=== PATIENT | male | born 1995 | race Caucasian/White ===

== ENCOUNTER 2017-12-26 19:41 | Emergency (ER) | payer OTHER, SELFPAY ==
[2017-12-26 19:52] VITALS: BP 126/85; PULSE 87; RESP 20; TEMP 36.6; O2SAT 99; BMI 35.4
--- NOTE | 2017-12-26 20:02 | HMH.EDUTC ---
[facility] [place] Disposition Clinical Impression: Right otitis media Qualifiers: Otitis media type: suppurative Chronicity: acute Recurrence: not specified as recurrent Spontaneous tympanic membrane rupture: without spontaneous rupture Qualified Code(s): H66.001 - Acute suppurative otitis media without spontaneous rupture of ear drum, right ear Disposition: Home, Self-Care Condition on Discharge: Good Instructions: DI for Otitis Media (Middle Ear Infection)-Child Prescriptions: cephALEXin [Keflex 500mg Cap] 500 mg PO Q6H 10 Days #40 cap Referrals: Maine Underwood APRN [Primary Care Provider] - Time of Disposition: 20:05 Medical Decision Making - Bennie Inquiry Pt receiving controlled substance: No Vital Signs: 12/26/17 19:52 Temperature 97.8 F Temperature Source Temporal Artery Scan Pulse Rate [Brachial] 87 Respiratory Rate 20 Blood Pressure [Right Arm] 126/85 Blood Pressure Mean [Right Arm] 98 Blood Pressure Position [Right Arm] Sitting 02 Sat by Pulse Oximetry 99 - Lab Data Lab results reviewed: Yes: I reviewed the patient's lab results. [facility] HPI - General Stated complaint: sore throat Time Seen by Provider: 12/26/17 19:50 Mode of Arrival: Ambulatory Source of Information: Patient Limitations: No Limitations Description of Symptoms (Recalled from Triage Doc. by RN): SORE THROAT FOR 3-4 DAYS THAT'S WORSE WHEN HE WAKES UP HEENT Symptoms (Recalled from RN notes): Yes Resp Symptoms (Recalled from RN notes): No Skin Symptoms (Recalled from RN notes): No MS Symptoms (Recalled from RN notes): No Functional Status (Recalled from RN notes): NA - History of Present Illness Provider Complaint: Sore throat X 3-4 days. Frequent strep throat. Right ear pain. Not sure about fever. No cough. No vomiting or diarrhea. Onset (ago): day(s) (4) Relieving factors: none Exacerbating factors: none Associated symptoms: malaise - Related Data Previous Rx's Medication Instructions Recorded cephALEXin [Keflex 500mg Cap] 500 mg PO Q6H 10 Days #40 cap 12/26/17 Allergies Allergy/AdvReac Type Severity Reaction Status Date / Time Penicillins [PENICILLINS] Allergy Mild Unverified 09/10/17 14:58 - Worker's Comp Is this a Worker's Comp case?: No [place] History I have reviewed the patient's past medical history: Yes - Social History Smoking Status: Current every day smoker Alcohol Intake: never - Psychiatric History Expresses thoughts of harming self/others: None Suicide Plan Description: No Plan ROS Obtained: Yes All systems reviewed & no additional complaints - ENT Ears, Nose, Mouth, and Throat: Reports otalgia, Reports sore throat Physical Exam - General General appearance: alert, in no apparent distress - Head Head exam: atraumatic, normocephalic, normal inspection - Eye Eye exam: Present: normal appearance, PERRL, EOMI - ENT ENT exam: Present: normal exam, normal oropharynx, mucous membranes moist, normal external ear exam - Expanded ENT Exam TM/Canal exam: Right TM: erythema, bulging Throat exam: Present: tonsillar erythema, tonsillar exudate - Neck Neck exam: Present: normal inspection, full ROM, trachea midline. Absent: meningismus, lymphadenopathy - Chest Chest inspection: Present: normal inspection, symmetric chest wall rise. Absent: tenderness - Respiratory Respiratory exam: Present: normal lung sounds bilaterally. Absent: respiratory distress - Cardiovascular Cardiovascular exam: Present: regular rate, normal rhythm. Absent: JVD - Abdominal Exam Abdominal exam: Present: soft, normal bowel sounds. Absent: distention, tenderness, guarding - Extremities Exam Extremities exam: Present: normal inspection, full ROM, normal capillary refill. Absent: calf tenderness - Back Exam Back exam: Present: normal inspection. Absent: tenderness - Neurological Exam Neurological exam: Present: alert, oriented X3 - Psychiatric Psychiatric exam: Present: normal affect, norm
--- NOTE | 2017-12-26 20:05 | ED_ITS ---
[facility] [place] Clinical Impression: Right otitis media Qualifiers: Otitis media type: suppurative Chronicity: acute Recurrence: not specified as recurrent Spontaneous tympanic membrane rupture: without spontaneous rupture Qualified Code(s): H66.001 - Acute suppurative otitis media without spontaneous rupture of ear drum, right ear Disposition: Home, Self-Care Condition on Discharge: Good Instructions: DI for Otitis Media (Middle Ear Infection)-Child Prescriptions: cephALEXin [Keflex 500mg Cap] 500 mg PO Q6H 10 Days #40 cap Referrals: Maine Underwood APRN [Primary Care Provider] - Time of Disposition: 20:05 Medical Decision Making - Bennie Inquiry Pt receiving controlled substance: No Vital Signs: 12/26/17 19:52 Temperature 97.8 F Temperature Source Temporal Artery Scan Pulse Rate [Brachial] 87 Respiratory Rate 20 Blood Pressure [Right Arm] 126/85 Blood Pressure Mean [Right Arm] 98 Blood Pressure Position [Right Arm] Sitting 02 Sat by Pulse Oximetry 99 - Lab Data Lab results reviewed: Yes: I reviewed the patient's lab results. [facility] [place] HPI - General Stated complaint: sore throat Time Seen by Provider: 12/26/17 19:50 Mode of Arrival: Ambulatory Source of Information: Patient Limitations: No Limitations Description of Symptoms (Recalled from Triage Doc. by RN): SORE THROAT FOR 3-4 DAYS THAT'S WORSE WHEN HE WAKES UP HEENT Symptoms (Recalled from RN notes): Yes Resp Symptoms (Recalled from RN notes): No Skin Symptoms (Recalled from RN notes): No MS Symptoms (Recalled from RN notes): No Functional Status (Recalled from RN notes): NA - History of Present Illness Provider Complaint: Sore throat X 3-4 days. Frequent strep throat. Right ear pain. Not sure about fever. No cough. No vomiting or diarrhea. Onset (ago): day(s) (4) Relieving factors: none Exacerbating factors: none Associated symptoms: malaise - Related Data Previous Rx's Medication Instructions Recorded cephALEXin [Keflex 500mg Cap] 500 mg PO Q6H 10 Days #40 cap 12/26/17 Allergies Allergy/AdvReac Type Severity Reaction Status Date / Time Penicillins [PENICILLINS] Allergy Mild Unverified 09/10/17 14:58 - Worker's Comp Is this a Worker's Comp case?: No [facility] History I have reviewed the patient's past medical history: Yes - Social History Smoking Status: Current every day smoker Alcohol Intake: never - Psychiatric History Expresses thoughts of harming self/others: None Suicide Plan Description: No Plan ROS Obtained: Yes All systems reviewed & no additional complaints - ENT Ears, Nose, Mouth, and Throat: Reports otalgia, Reports sore throat Physical Exam - General General appearance: alert, in no apparent distress - Head Head exam: atraumatic, normocephalic, normal inspection - Eye Eye exam: Present: normal appearance, PERRL, EOMI - ENT ENT exam: Present: normal exam, normal oropharynx, mucous membranes moist, normal external ear exam - Expanded ENT Exam TM/Canal exam: Right TM: erythema, bulging Throat exam: Present: tonsillar erythema, tonsillar exudate - Neck Neck exam: Present: normal inspection, full ROM, trachea midline. Absent: meningismus, lymphadenopathy - Chest Chest inspection: Present: normal inspection, symmetric chest wall rise. Absent : tenderness - Respiratory
[2017-12-26 20:19] VITALS: BP 126/85; PULSE 87; RESP 20; TEMP 36.6; O2SAT 99
[2017-12-26 21:56] LABS: UTC Strep Screen (Rapid) Negative (Negative)
== END 2017-12-26 20:20 | disposition home or self-care (01) ==
LOC: UTC 20:18
PROVIDERS: Emergency Provider Physician Assistant; Family Provider Physician Assistant; PCP Nurse Practitioner Family
DX: H66.001 Acute suppurative otitis media without spontaneous rupture of ear drum, right ear (principal); Z88.0 Allergy status to penicillin
CPT/HCPCS: 87880; 99201

== ENCOUNTER → 2018-03-11 12:08 | Outpatient (CLI) | payer OTHER, SELFPAY ==
--- NOTE | 2018-03-11 12:11 | XR_ITS ---
XR KUB HISTORY: ITS.REASON: pain ORDERING PHYSICIAN: Brenda Aaron PATIENT AGE: 22 years COMPARISON: None FINDINGS: The bowel gas pattern is unremarkable. No obvious obstruction.. No abnormal calcifications are evident. No obvious renal or ureteral calculi.. No acute bony anomalies evident. Minimal lumbar curvature convex left IMPRESSION: Negative KUB, no acute finding
== END ==
PROVIDERS: PCP Nurse Practitioner Family; Visit Provider Nurse Practitioner Family
DX: R10.9 Unspecified abdominal pain (principal); R30.9 Painful micturition, unspecified
CPT/HCPCS: 74018

== ENCOUNTER → 2018-09-17 15:05 | Outpatient (CLI) | payer OTHER, SELFPAY ==
[2018-09-17 15:36] LABS: Basophils # 0.1 K/mm3 (0-0.2); Basophils % 0.8 % (0.1-2.0); Eosinophils # 0.2 K/mm3 (0.0-0.4); Eosinophils % 2.4 % (0.1-12.0); Hematocrit 46.9 % (42.0-52.0); Hemoglobin 16.3 g/dL (14.1-18.0); Lymphocytes # 1.8 K/mm3 (0.7-4.5); Lymphocytes % 25.3 % (10-50); Mean Corpuscular HGB Conc 34.7 g/dL (31.8-35.4); Mean Corpuscular Hemoglobin 28.3 pg (27.0-31.2); Mean Corpuscular Volume 81.4 fl (80-94); Mean Platelet Volume 7.2 fl (7.4-10.4); Monocytes # 0.4 K/mm3 (0.1-1.0); Monocytes % 5.1 % (1.7-9.3); Neutrophils # 4.8 K/mm3 (1.8-7.8); Neutrophils % 66.3 % (37.0-80.0); Platelet Count 221 K/mm3 (142-424); Red Blood Count 5.76 M/mm3 (4.60-6.20); Red Cell Distribution Width 13.2 % (11.5-17.5); White Blood Count 7.2 K/mm3 (4.8-10.8)
[2018-09-17 15:58] LABS: Alanine Aminotransferase 54 U/L (12-78); Albumin Level 3.9 gm/dL (3.4-5.0); Albumin/Globulin Ratio 0.9 (1.1-1.8); Alkaline Phosphatase 88 U/L (46-116); Anion Gap 14.3 mEq/L (5-15); Aspartate Amino Transferase 30 U/L (15-37); Bilirubin,Total 0.6 mg/dL (0.2-1.0); Blood Urea Nitrogen 13 mg/dL (7-18); Calcium 9.1 mg/dL (8.5-10.1); Carbon Dioxide 28 mmol/L (21.0-32.0); Chloride 102 mmol/L (98-107); Creatinine,Serum 0.92 mg/dL (0.70-1.30); Estimated Glomerular Filt Rate 103 ml/min (>60); GFR (African American) 124 ML/MIN (>60); Globulin 4.3 gm/dl (1.3-3.2); Glucose 96 mg/dL (74-106); Potassium 4.3 mmoL/L (3.5-5.1); Sodium 140 mmol/L (136-145); Total Protein,Serum 8.2 gm/dL (6.4-8.2)
[2018-09-19 15:07] LABS: Peripheral Smear Review Scanned Result
[2018-09-20 10:54] LABS: EBV Ab VCA, IgM <36.0 U/mL (0.0-35.9)
== END ==
PROVIDERS: Visit Provider Physician Assistant
DX: R16.2 Hepatomegaly with splenomegaly, not elsewhere classified (principal)
CPT/HCPCS: 36415; 80053; 85025; 86664; 86665

== ENCOUNTER → 2019-05-28 17:06 | Outpatient (CLI) | payer OTHER, SELFPAY ==
[2019-05-28 17:40] LABS: Basophils % 0.4 % (0.1-2.0); Eosinophils # 0.1 K/mm3 (0.0-0.4); Eosinophils % 1.5 % (0.1-12.0); Hematocrit 44.3 % (42.0-52.0); Hemoglobin 15.4 g/dL (14.1-18.0); Lymphocytes % 27.3 % (10-50); Mean Corpuscular HGB Conc 34.7 g/dL (31.8-35.4); Mean Corpuscular Hemoglobin 28.6 pg (27.0-31.2); Mean Corpuscular Volume 82.5 fl (80-94); Mean Platelet Volume 7.7 fl (7.4-10.4); Monocytes # 0.5 K/mm3 (0.1-1.0); Monocytes % 6.7 % (1.7-9.3); Neutrophils # 4.6 K/mm3 (1.8-7.8); Neutrophils % 64.2 % (37.0-80.0); Platelet Count 226 K/mm3 (142-424); Red Blood Count 5.37 M/mm3 (4.60-6.20); Red Cell Distribution Width 13.2 % (11.5-17.5); White Blood Count 7.2 K/mm3 (4.8-10.8)
[2019-05-28 18:31] LABS: Alanine Aminotransferase 80 U/L (12-78); Albumin Level 3.9 gm/dL (3.4-5.0); Alkaline Phosphatase 83 U/L (46-116); Anion Gap 15.3 mEq/L (5-15); Aspartate Amino Transferase 45 U/L (15-37); Bilirubin,Total 0.3 mg/dL (0.2-1.0); Blood Urea Nitrogen 10 mg/dL (7-18); Calcium 8.9 mg/dL (8.5-10.1); Carbon Dioxide 24 mmol/L (21.0-32.0); Chloride 106 mmol/L (98-107); Creatinine,Serum 0.92 mg/dL (0.70-1.30); Estimated Glomerular Filt Rate 102 ml/min (>60); GFR (African American) 123 ML/MIN (>60); Glucose 97 mg/dL (74-106); Potassium 4.3 mmoL/L (3.5-5.1); Sodium 141 mmol/L (136-145); Total Protein,Serum 7.9 gm/dL (6.4-8.2)
[2019-05-30 08:21] LABS: Hep A Ab, IgM Negative (Negative); Hepatitis B Core Antibody IgM Negative (Negative); Hepatitis B Surface Antigen Negative (Negative)
[2019-05-30 17:12] LABS: Peripheral Smear Review Scanned Result
[2019-05-30 18:04] LABS: Hepatitis C Antibody <0.1 s/co ratio (0.0-0.9)
[2019-05-30 18:05] LABS: EBV Ab VCA, IgM <36.0 U/mL (0.0-35.9)
== END ==
PROVIDERS: Visit Provider Physician Assistant
DX: R10.9 Unspecified abdominal pain (principal); R07.81 Pleurodynia; R16.2 Hepatomegaly with splenomegaly, not elsewhere classified; R31.9 Hematuria, unspecified
CPT/HCPCS: 80053; 80074; 85025; 86664; 86665

== ENCOUNTER 2020-03-26 23:34 | Emergency (ER) | payer OTHER, SELFPAY ==
[2020-03-26 23:42] VITALS: BP 141/108; PULSE 118; RESP 16; TEMP 36.8; O2SAT 98; BMI 21.5
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
[2020-03-27 00:15] VITALS: BP 132/90; PULSE 108; RESP 18; O2SAT 99
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
[2020-03-27 00:52] VITALS: BP 116/89; PULSE 102; RESP 15; TEMP 36.8; O2SAT 98
== END 2020-03-27 01:04 | disposition home or self-care (01) ==
PROVIDERS: Emergency Provider Emergency Medicine; PCP Physician Assistant
DX: T23.222A Burn of second degree of single left finger (nail) except thumb, initial encounter (principal); W39.XXXA Discharge of firework, initial encounter; F17.210 Nicotine dependence, cigarettes, uncomplicated
CPT/HCPCS: 96372; 99282

== ENCOUNTER 2020-06-20 15:49 | Emergency (ER) | payer OTHER, SELFPAY ==
[2020-06-20 15:50] VITALS: BP 148/91; PULSE 98; RESP 18; TEMP 37.2; O2SAT 98; BMI 34.7
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
--- NOTE | 2020-06-20 16:39 | PC.NURSE ---
20/20 left eye 20/20 right eye
[2020-06-20 16:46] VITALS: BP 148/91; PULSE 98; RESP 18; TEMP 37.2; O2SAT 98
== END 2020-06-20 16:47 | disposition home or self-care (01) ==
PROVIDERS: Emergency Provider Emergency Medicine; PCP Physician Assistant
DX: S05.91XA Unspecified injury of right eye and orbit, initial encounter (principal); F17.210 Nicotine dependence, cigarettes, uncomplicated
CPT/HCPCS: 99281

== ENCOUNTER 2020-07-16 21:23 | Emergency (ER) | payer OTHER, SELFPAY ==
[2020-07-16 21:37] VITALS: BP 144/96; PULSE 76; RESP 16; TEMP 36.7; O2SAT 99; BMI 34.7
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
[2020-07-16 22:39] VITALS: BP 125/84; PULSE 87; RESP 18; O2SAT 98
[2020-07-16 23:25] VITALS: BP 126/97; PULSE 73; RESP 17; TEMP 36.7; O2SAT 98
== END 2020-07-16 23:30 | disposition home or self-care (01) ==
PROVIDERS: Emergency Provider Emergency Medicine; PCP Physician Assistant
DX: S80.812A Abrasion, left lower leg, initial encounter (principal); S80.12XA Contusion of left lower leg, initial encounter; W22.09XA Striking against other stationary object, initial encounter; Y92.79 Other farm location as the place of occurrence of the external cause; F17.210 Nicotine dependence, cigarettes, uncomplicated
CPT/HCPCS: 73590; 99282

== ENCOUNTER 2020-10-07 22:44 | Emergency (ER) | payer OTHER, SELFPAY ==
[2020-10-07 22:45] VITALS: BP 145/90; PULSE 95; RESP 16; TEMP 36.9; O2SAT 99; BMI 35.3
--- NOTE | 2020-10-07 22:58 | HMH.EDGENADL ---
ED Disposition Clinical Impression: Colitis Disposition: Home, Self-Care Condition on Discharge: Good Instructions: DI for Acute Abdominal Pain Additional Instructions: Take prescribed medicine for gut spasm/pain. Do not operate heavy machinery or drink alcohol taking this medicine. Take Pepto-Bismol if experiencing any diarrhea and drink plenty of clear fluids and follow a bland diet over the next several days. Return if any high fever/chills, worsening abdominal pain, concern for dehydration secondary to volume depletion, or other new concerning symptoms. Prescriptions: Dicyclomine HCl [Bentyl 10mg capsule] 10 mg PO TID 4 Days #18 cap Transmission Status: Pending to [id number] Referrals: Shellie Richmond PA [Primary Care Provider] - - Critical Care Critical Care Time: No Attestation: On 10/07/20, the high probability of a clinically significant, sudden or life threatening deterioration of the following system(s) required my full and direct attention, intervention and personal management. The time I documented below is in addition to time spent performing reported procedures but includes the following listed in this critical care notation. Medical Decision Making - Medical Records Medical records reviewed: Yes: I reviewed the patient's medical records. - Bennie Inquiry Pt receiving controlled substance: No Vital Signs: 10/07/20 22:45 Temperature 98.4 F Temperature Source Oral Pulse Rate [Left Radial] 95 H Respiratory Rate 16 Blood Pressure [Right Arm] 145/90 H Blood Pressure Mean [Right Arm] 108 Blood Pressure Source [Right Arm] Automatic Cuff Blood Pressure Position [Right Arm] Supine 02 Sat by Pulse Oximetry 99 Oxygen Delivery Method Room Air - Lab Data Lab Results 10/07/20 23:00: Urine Color Yellow, Urine Appearance Clear, Urine pH 7.0, Ur Specific [place] 1.025, Urine Protein 1+, Urine Glucose (UA) Negative, Urine Ketones Negative, Urine Blood Trace-i, Urine Nitrate Negative, Urine Bilirubin Negative, Urine Urobilinogen 0.2, Ur Leukocyte Esterase Negative, Urine RBC 3-5, Urine WBC 3-5 10/07/20 23:13: WBC 11.7 H, RBC 5.85, Hgb 16.6, Hct 47.2, MCV 80.7, MCH 28.3, MCHC 35.1, RDW 13.7, Plt Count 233, MPV 7.5, Neut % (Auto) 66.1, Lymph % (Auto) 25.7, Coles % (Auto) 6.1, Eos % (Auto) 1.4, Baso % (Auto) 0.6, Neut # (Auto) 7.8, Lymph # (Auto) 3.0, Coles # (Auto) 0.7, Eos # (Auto) 0.2, Baso # (Auto) 0.1 10/07/20 23:13: Sodium 138, Potassium 3.9, Chloride 104, Carbon Dioxide 26, Anion Gap 11.9, BUN 15, Creatinine 0.80, Estimated Creat Clear 249, Estimated GFR 118, Est GFR ( Amer) 143, Glucose 109 H, Calcium 9.4, Total Bilirubin 0.6, AST 40, ALT 47, Alkaline Phosphatase 73, Total Protein 8.7 H, Albumin 4.6, Globulin 4.1 H, Albumin/Globulin Ratio 1.1, Amylase 60, Lipase 47 Result diagrams: 10/07/20 23:13 10/07/20 23:13 Orders (Tests/Meds): ED MEDICATIONS Generic Name Dose Route Start Last Admin Trade Name Freq PRN Reason Stop Dose Admin Lactated Ringer's 1,000 mls @ 999 mls/hr 10/07/20 23:15 Lactated Ringer's 1000 Ml Bag IV 10/08/20 00:15 .Q1H1M [place] Discontinued Medications Generic Name Dose Route Start Last Admin Trade Name Freq PRN Reason Stop Dose Admin Iopamidol 75 ml 10/07/20 23:38 10/07/20 23:39 Iopamidol-370 (76%);100ml Bottle IV 10/07/20 23:39 75 ml ONCE ONE Administration Sodium Chloride 10 ml 10/07/20 23:38 10/07/20 23:39 Sodium Chloride 0.9% 10ml Syr (Rad Only) IV 10/07/20 23:39 10 ml ONCE ONE Administration ORDERS Category Date Time Status CT abdomen pelvis w con Stat Cat Scan 10/07/20 23:03 Taken Medical Decision Narrative: Patient presents with left upper quadrant/left flank pain. Patient hemodynamically stable in no acute distress. At this time, differential diagnosis includes pyelonephritis versus kidney stone versus diverticulitis versus gastritis versus colitis versus muscular strain. Benign abdominal
--- NOTE | 2020-10-07 23:03 | CT_ITS ---
Procedure: CT ABDOMEN PELVIS W CON Referring Doctor: Piter Moreno Patient Age:25Y CLINICAL INDICATION: abd pain left-sided abdominal pain 4 days denies nausea vomiting or diarrhea. Appendix removed 4 years ago COMPARISON: CT ABDPELWW CT abdomen pelvis wo/w con from 08/29/2018 TECHNIQUE: 75 cc Isovue 370. IV contrast utilized but no oral contrast Helical axial images obtained with sagittal and coronal reformats. All CT scans at the facility use one or more dose reduction, viz: automated exposure control, ma/kV adjustment per patient size (including targeted exams where dose is matched to indication, i.e. head), or iterative reconstruction technique. FINDINGS: Lower thorax: No acute finding.-no active disease. Small 5 mm calcified granuloma towards left lung base. 2Heart normal size. ABDOMEN: Liver: Diffuse fatty changes of liver. Hepatic steatosis no masses or biliary dilatation. Gallbladder: Nondistended. No radio opaque stones. Common duct normal Pancreas: Unremarkable no masses or peripancreatic fluid collections. Spleen: Borderline/mild splenomegaly. Spleen does measure 15 cm length but upper normal volume overall. Spleen appearance and size unchanged since 2018 but minimal splenosis again noted medial to the spleen Adrenals: unremarkable --- tract --- Kidneys/ureters: Unremarkable but normal enhancement PELVIS. No free fluid or acute findings. Prostate normal size Urinary bladder: Small nondistended with upper normal wall thickness likely reflecting such. No obvious stones or masses. Appendix: Surgically removed. --GI tract----: Stomach bowel: Nondistended. No obvious mass or thickening. Perhaps slight generous throughout distal small bowel but no dilatation, WNL Large bowel: Minimal solid stool right colon with fairly empty left colon Few early diverticula at the sigmoid and left colon suggested but no active evident diverticulitis. The slight wall thickening appearance at the descending colon noted on preliminary V [facility] report I favor reflects merely lack of distension, although conceivably could could reflect some minor inflammatory changes. No liquid stool or other findings to support a current colitis Peritoneum: No abnormal fluid collections. No obvious inflammatory changes. No free air. . No significant hernias. Lymph nodes: No enlarged lymph nodes apparent. Vasculature: No evidence of abdominal aortic aneurysm. No retroperitoneal hemorrhage evident. Bones: No acute fracture no lesion. Borderline disc space narrowing posterior L5/S1 IMPRESSION: No discrete acute findings abdomen pelvis Mild wall thickening appearance at the descending colon I favor merely reflects lack of distension (doubt mild colitis). . Borderline-mild splenomegaly again noted. Spleen un unchanged since 2018 . Diverticulosis developing at sigmoid and left colon but no diverticulitis . The fatty changes liver . Dictated by: Zane Lopez MD 10/08/2020 11:23 Zane Lopez MD in [place] 10/08/2020 11:23
[2020-10-07 23:09] LABS: Microscopic, Urine URINE MICROSCOPIC (MICROSCOPIC)
[2020-10-07 23:10] LABS: Appearance,Urine CLEAR (Clear); Bilirubin,Urine Negative (Negative); Blood, Urine TRACE-I (Negative); Color,Urine YELLOW (Yellow); Glucose,Urine (UA) Negative (Negative); Ketones,Urine Negative (Negative); Leukocyte Esterase,Urine Negative (Negative); Nitrate,Urine Negative (Negative); Protein,Urine 1+ (Negative); Specific Gravity, Urine 1.025 (1.005-1.030); Urobilinogen,Urine 0.2 EU/dl (0.2)
[2020-10-07 23:20] LABS: Basophils # 0.1 K/mm3 (0-0.2); Basophils % 0.6 % (0.1-2.0); Eosinophils # 0.2 K/mm3 (0.0-0.4); Eosinophils % 1.4 % (0.1-12.0); Hematocrit 47.2 % (42.0-52.0); Hemoglobin 16.6 g/dL (14.1-18.0); Lymphocytes % 25.7 % (10-50); Mean Corpuscular HGB Conc 35.1 g/dL (31.8-35.4); Mean Corpuscular Hemoglobin 28.3 pg (27.0-31.2); Mean Corpuscular Volume 80.7 fl (80-94); Mean Platelet Volume 7.5 fl (7.4-10.4); Monocytes # 0.7 K/mm3 (0.1-1.0); Monocytes % 6.1 % (1.7-9.3); Neutrophils # 7.8 K/mm3 (1.8-7.8); Neutrophils % 66.1 % (37.0-80.0); Platelet Count 233 K/mm3 (142-424); Red Blood Count 5.85 M/mm3 (4.60-6.20); Red Cell Distribution Width 13.7 % (11.5-17.5); White Blood Count 11.7 K/mm3 (4.8-10.8)
[2020-10-07 23:28] LABS: Alanine Aminotransferase 47 U/L (12-78); Albumin Level 4.6 g/dl (3.5-5.0); Albumin/Globulin Ratio 1.1 (1.1-1.8); Alkaline Phosphatase 73 U/L (38-126); Amylase 60 U/L (30-110); Anion Gap 11.9 mEq/L (5-15); Aspartate Amino Transferase 40 U/L (17-59); Bilirubin,Total 0.6 mg/dl (0.2-1.3); Blood Urea Nitrogen 15 mg/dl (9-20); Calcium 9.4 mg/dl (8.4-10.2); Carbon Dioxide 26 mmol/L (22.0-30.0); Chloride 104 mmol/L (98-107); Creatinine Clearance Estimated 249 mL/min (50-200); Estimated Glomerular Filt Rate 118 ml/min (>60); GFR (African American) 143 ML/MIN (>60); Globulin 4.1 g/dL (1.3-3.2); Glucose 109 mg/dl (74-100); Lipase 47 U/L (23-300); Potassium 3.9 mmoL/L (3.5-5.1); Sodium 138 mmol/L (136-145); Total Protein,Serum 8.7 g/dl (6.3-8.2)
[2020-10-08 00:15] VITALS: BP 135/84; PULSE 81; RESP 16; TEMP 36.6; O2SAT 97
== END 2020-10-08 00:17 | disposition home or self-care (01) ==
PROVIDERS: Emergency Provider Emergency Medicine; PCP Physician Assistant
DX: K52.9 Noninfective gastroenteritis and colitis, unspecified (principal); F17.210 Nicotine dependence, cigarettes, uncomplicated
CPT/HCPCS: 74177; 80053; 81001; 82150; 83690; 85025; 99283; Q9967

== ENCOUNTER → 2020-11-18 13:04 | Outpatient (CLI) | payer OTHER, SELFPAY ==
[2020-11-18 13:08] LABS: Microscopic, Urine URINE MICROSCOPIC (MICROSCOPIC)
[2020-11-18 13:24] LABS: Appearance,Urine CLEAR (Clear); Blood, Urine 1+ (Negative); Color,Urine YELLOW (Yellow); Glucose,Urine (UA) Negative (Negative); Ketones,Urine Negative (Negative); Leukocyte Esterase,Urine Negative (Negative); Nitrate,Urine Negative (Negative); Protein,Urine 3+ (Negative); Specific Gravity, Urine >= 1.030 (1.005-1.030)
[2020-11-18 13:28] LABS: Bilirubin,Urine 1+ (Negative)
[2020-11-18 13:29] LABS: Basophils % 0.5 % (0.1-2.0); Eosinophils # 0.1 K/mm3 (0.0-0.4); Eosinophils % 1.3 % (0.1-12.0); Hematocrit 43.3 % (42.0-52.0); Lymphocytes # 2.3 K/mm3 (0.7-4.5); Lymphocytes % 28.9 % (10-50); Mean Corpuscular HGB Conc 34.5 g/dL (31.8-35.4); Mean Platelet Volume 7.5 fl (7.4-10.4); Monocytes # 0.5 K/mm3 (0.1-1.0); Monocytes % 6.5 % (1.7-9.3); Neutrophils # 4.9 K/mm3 (1.8-7.8); Neutrophils % 62.7 % (37.0-80.0); Platelet Count 242 K/mm3 (142-424); Red Blood Count 5.35 M/mm3 (4.60-6.20); Red Cell Distribution Width 13.3 % (11.5-17.5); White Blood Count 7.9 K/mm3 (4.8-10.8)
[2020-11-18 14:11] LABS: Albumin Level 4.6 g/dl (3.5-5.0); Anion Gap 10.8 mEq/L (5-15); Blood Urea Nitrogen 16 mg/dl (9-20); Calcium 9.2 mg/dl (8.4-10.2); Carbon Dioxide 26 mmol/L (22.0-30.0); Chloride 107 mmol/L (98-107); Estimated Glomerular Filt Rate 103 ml/min (>60); GFR (African American) 124 ML/MIN (>60); Glucose 84 mg/dl (74-100); Phosphorous 3.9 mg/dl (2.5-4.5); Potassium 3.8 mmoL/L (3.5-5.1); Sodium 140 mmol/L (136-145)
[2020-11-18 14:24] LABS: Intact Parathyroid Hormone 50.8 pg/mL (7.5-53.5)
[2020-11-18 14:28] LABS: 25-OH Vitamin D, Total 24.4 ng/mL (30-100)
[2020-11-18 14:47] LABS: Creatinine,Urine Random 467 mg/dL (Not Estab.)
== END ==
PROVIDERS: Visit Provider Internal Medicine Nephrology
DX: R31.9 Hematuria, unspecified (principal); Z87.448 Personal history of other diseases of urinary system
CPT/HCPCS: 36415; 80069; 81001; 82306; 82570; 83970; 84155; 85025

== ENCOUNTER → 2020-11-21 10:48 | Outpatient (POV) | payer OTHER, SELFPAY ==
[2020-11-21 14:05] LABS: Erythrocyte Sedimentation Rate 8 mm/hr (0-15)
[2020-11-22 11:35] LABS: HIV Screen 4th Generation wRfx Non Reactive (Non Reactive)
[2020-11-22 12:21] LABS: Hep A Ab, IgM Negative (Negative); Hepatitis B Core Antibody IgM Negative (Negative); Hepatitis B Surface Antigen Negative (Negative)
[2020-11-22 13:06] LABS: Hepatitis C Antibody <0.1 s/co ratio (0.0-0.9)
[2020-11-22 17:40] LABS: Anti-DNA (DS) Ab Qn 1 IU/mL (0-9); Complement C3 150 mg/dL (82-167)
[2020-11-23 14:58] LABS: Antinuclear Antibodies, IFA Negative (.)
[2020-11-23 15:10] LABS: Myeloperoxidase Antibody <9.0 U/mL (0.0-9.0)
[2020-11-23 18:16] LABS: Antiproteinase 3 (PR-3) Abs <3.5 U/mL (0.0-3.5)
== END ==
PROVIDERS: Visit Provider Internal Medicine Nephrology
DX: R31.9 Hematuria, unspecified (principal)
CPT/HCPCS: 36415; 80074; 83520; 85651; 86038; 86161; 86225; 86703; G0432

== ENCOUNTER 2020-11-25 06:46 | Emergency (ER) | payer OTHER, SELFPAY ==
[2020-11-25 06:47] VITALS: BP 144/94; PULSE 80; RESP 16; TEMP 36.6; O2SAT 98; BMI 34.7
--- NOTE | 2020-11-25 07:05 | CT_ITS ---
PROCEDURE: CT ABDOMEN PELVIS W CON CLINICAL INDICATION: LLQ pain COMPARISON: CT CT ABDOMEN PELVIS W CON from 10/07/2020 TECHNIQUE: IV Contrast: 75ML Isovue 370 Oral Contrast None Axial images obtained with sagittal and coronal reformats. All CT scans at the facility use one or more dose reduction, viz: automated exposure control, ma/kV adjustment per patient size (including targeted exams where dose is matched to indication, i.e. head), or iterative reconstruction technique. FINDINGS: LOWER THORAX: No acute finding ABDOMEN & PELVIS: Fatty liver. The spleen, adrenal glands, pancreas, and kidneys have an unremarkable appearance. No radiopaque gallstones. Prior appendectomy. No intestinal obstruction or free air. There are some nondistended fluid-filled loops of small bowel with a few air-fluid levels which are nonspecific but could be seen with enteritis. Scattered small nodes are present in the mesenteries which are nonspecific. No acute bony findings. IMPRESSION: Possible mild enteritis otherwise negative Dictated by: Joe Garcia MD 11/25/2020 09:48 Joe Garcia MD in [place] 11/25/2020 09:48
--- NOTE | 2020-11-25 07:07 | HMH.EDGENADL ---
ED Disposition Clinical Impression: Abdominal pain Disposition: Still a Patient Condition on Discharge: Good Referrals: Shellie Richmond PA [Primary Care Provider] - - Critical Care Critical Care Time: No Attestation: On , the high probability of a clinically significant, sudden or life threatening deterioration of the following system(s) required my full and direct attention, intervention and personal management. The time I documented below is in addition to time spent performing reported procedures but includes the following listed in this critical care notation. Medical Decision Making - Medical Records Medical records reviewed: Yes: I reviewed the patient's medical records. - Bennie Inquiry Pt receiving controlled substance: No Vital Signs: 11/25/20 06:47 Temperature 97.8 F Temperature Source Oral Pulse Rate [Radial] 80 Respiratory Rate 16 Blood Pressure [Right Arm] 144/94 H Blood Pressure Mean [Right Arm] 110 Blood Pressure Position [Right Arm] Sitting 02 Sat by Pulse Oximetry 98 Oxygen Delivery Method Room Air Orders (Tests/Meds): ED MEDICATIONS Generic Name Dose Route Start Last Admin Trade Name Freq PRN Reason Stop Dose Admin Sodium Chloride 1,000 mls @ 999 mls/hr 11/25/20 07:15 11/25/20 07:10 Sod Chlor 0.9% 1000ml Bag IV 11/25/20 08:15 999 mls/hr .Q1H1M VERNON Administration Discontinued Medications Generic Name Dose Route Start Last Admin Trade Name Freq PRN Reason Stop Dose Admin Ondansetron HCl 4 mg 11/25/20 07:05 11/25/20 07:12 Ondansetron 4mg Odt SL 11/25/20 07:06 Not Given ONCE ONE Ondansetron HCl 4 mg 11/25/20 07:10 11/25/20 07:11 Ondansetron 4mg/2ml Vial IV 11/25/20 07:11 4 mg ONCE ONE Administration ORDERS Category Date Time Status CT abdomen pelvis w con Stat Cat Scan 11/25/20 07:05 Ordered CMP [Comprehensive Metabolic Panel] Stat Lab 11/25/20 07:05 Ordered Complete Blood Count Auto Diff Stat Lab 11/25/20 07:05 Ordered Lipase Stat Lab 11/25/20 07:05 Ordered Urinalysis and Microscopic Stat Lab 11/25/20 07:03 Ordered Medical Decision Narrative: 25-year-old male with abdominal pain and back pain as above. He is in no acute distress nontoxic-appearing sitting comfortably in the room. He is mostly tender in the left lower quadrant. I think that perforation and ischemia obstruction or other emergent etiology is less likely, had recent colitis that is possibly recurring. CT scan obtained to evaluate. No concern for emergent back pathology including epidural abscess or cauda equina syndrome. We will give IV fluids check labs and sign outpatient to oncoming physician Dr. Collins follow-up and reevaluation final disposition General Adult HPI - General Chief complaint: PAIN Stated complaint: Pain in left side and spine Time Seen by Provider: 11/25/20 07:00 Mode of Arrival: Ambulatory Limitations: No Limitations Description of Symptoms (Recalled from ER Triage Doc. by RN): TO ED PER PVT CAR WITH C/O LT SIDE BACK PAIN WOKE HIM OUT OF SLEEP AND LLQ PAIN X SEVERAL WEEKS. +NAUSEA, DENIES FEVER, CHILLS, VOMITING. PT STATES SEEN BY NEPHROLOGY SEVERAL DAYS AGO. - History of Present Illness HPI narrative: 25-year-old male presents with left lower quadrant pain and lower and mid back pain for 1 day. He says he was woken up from his sleep with severe pain in the left lower quadrant. This is similar to the pain he had 2 months ago when he had a mild colitis. He denies radiation of the pain to the lower extremities urinary or bowel incontinence. No fever or chills. He does have nausea no vomiting. No diarrhea. Location: abdomen Severity: mild Quality: dull Consistency: intermittent - Related Data Previous Rx's Medication Instructions Recorded Dicyclomine HCl [Bentyl 10mg 10 mg PO TID 4 Days #18 cap 10/07/20 capsule] cephalexin 500 mg capsule 500 mg PO TID 10 Days #30 cap 10/11/20 hyoscyamine sulfate 0.375 mg 0
[2020-11-25 07:18] LABS: Microscopic, Urine URINE MICROSCOPIC (MICROSCOPIC)
[2020-11-25 07:22] LABS: Basophils # 0.1 K/mm3 (0-0.2); Basophils % 0.9 % (0.1-2.0); Eosinophils # 0.2 K/mm3 (0.0-0.4); Eosinophils % 2.7 % (0.1-12.0); Hematocrit 47.8 % (42.0-52.0); Hemoglobin 16.1 g/dL (14.1-18.0); Lymphocytes # 2.6 K/mm3 (0.7-4.5); Lymphocytes % 34.7 % (10-50); Mean Corpuscular HGB Conc 33.7 g/dL (31.8-35.4); Mean Corpuscular Hemoglobin 27.8 pg (27.0-31.2); Mean Corpuscular Volume 82.7 fl (80-94); Mean Platelet Volume 7.9 fl (7.4-10.4); Monocytes # 0.5 K/mm3 (0.1-1.0); Monocytes % 6.8 % (1.7-9.3); Neutrophils # 4.1 K/mm3 (1.8-7.8); Neutrophils % 54.8 % (37.0-80.0); Platelet Count 220 K/mm3 (142-424); Red Blood Count 5.79 M/mm3 (4.60-6.20); Red Cell Distribution Width 13.4 % (11.5-17.5); White Blood Count 7.5 K/mm3 (4.8-10.8)
[2020-11-25 07:23] LABS: Appearance,Urine CLEAR (Clear); Bilirubin,Urine Negative (Negative); Blood, Urine TRACE-L (Negative); Color,Urine YELLOW (Yellow); Glucose,Urine (UA) Negative (Negative); Ketones,Urine Negative (Negative); Leukocyte Esterase,Urine Negative (Negative); Nitrate,Urine Negative (Negative); PH,Urine 6.5 (5.0-8.5); Protein,Urine 1+ (Negative); Specific Gravity, Urine 1.025 (1.005-1.030); Urobilinogen,Urine 0.2 EU/dl (0.2)
[2020-11-25 07:26] LABS: Alanine Aminotransferase 67 U/L (12-78); Albumin Level 4.5 g/dl (3.5-5.0); Albumin/Globulin Ratio 1.1 (1.1-1.8); Alkaline Phosphatase 79 U/L (38-126); Aspartate Amino Transferase 48 U/L (17-59); Bilirubin,Total 0.4 mg/dl (0.2-1.3); Blood Urea Nitrogen 18 mg/dl (9-20); Calcium 9.5 mg/dl (8.4-10.2); Carbon Dioxide 24 mmol/L (22.0-30.0); Chloride 107 mmol/L (98-107); Creatinine Clearance Estimated 217 mL/min (50-200); Estimated Glomerular Filt Rate 103 ml/min (>60); GFR (African American) 124 ML/MIN (>60); Globulin 4.1 g/dL (1.3-3.2); Glucose 110 mg/dl (74-100); Lipase 53 U/L (23-300); Sodium 139 mmol/L (136-145); Total Protein,Serum 8.6 g/dl (6.3-8.2)
[2020-11-25 07:42] LABS: Squamous Epithelial Cell,Urine Occasional #/hpf (0-5)
[2020-11-25 08:11] VITALS: BP 138/70; PULSE 71; RESP 18; TEMP 36.6; O2SAT 99
== END 2020-11-25 08:11 | disposition home or self-care (01) ==
PROVIDERS: Emergency Provider Emergency Medicine; PCP Physician Assistant
DX: R10.32 Left lower quadrant pain (principal); F17.210 Nicotine dependence, cigarettes, uncomplicated
CPT/HCPCS: 36415; 74177; 80053; 81001; 83690; 85025; 96365; 96375; 99283; J2405

== ENCOUNTER 2021-04-16 13:56 | Emergency (ER) | payer OTHER, SELFPAY ==
[2021-04-16 15:27] VITALS: BP 125/88; PULSE 92; RESP 18; TEMP 36.9; O2SAT 98; BMI 36.6
--- NOTE | 2021-04-16 15:33 | HMH.EDUTC ---
[facility] [place] Disposition Clinical Impression: Need for Tdap vaccination Puncture wound of right knee without foreign body Qualifiers: Encounter type: initial encounter Qualified Code(s): S81.031A - Puncture wound without foreign body, right knee, initial encounter Disposition: Home, Self-Care Condition on Discharge: Good Instructions: DI for Puncture Wound Prescriptions: cephALEXin [cephALEXin 500mg capsule*] 500 mg PO Q6H 10 Days #40 cap Transmission Status[email or web address] Naproxen [Naproxen 500mg tab] 500 mg PO BID 10 Days #20 tab Transmission [facility]: [email or web address] Referrals: Shellie Richmond PA [Primary Care Provider] - Time of Disposition: 15:52 Medical Decision Making - Bennie Inquiry Pt receiving controlled substance: No Vital Signs: 04/16/21 15:27 Temperature 98.4 F Temperature Source Oral Pulse Rate [Right] 92 H Respiratory Rate 18 Blood Pressure [Right Arm] 125/88 Blood Pressure Mean [Right Arm] 100 02 Sat by Pulse Oximetry 98 Oxygen Delivery Method Room Air Orders (Tests/Meds): ED MEDICATIONS Discontinued Medications Generic Name Dose Route Start Last Admin Trade Name Freq PRN Reason Stop Dose Admin Tetanus/Reduced Diphtheria/Acell Pertussis 0.5 ml 04/16/21 15:49 Tet/Diphth/Pert-Adult 0.5ml Syringe IM 04/16/21 15:50 .ONCE ONE ORDERS Category Date Time Status XR knee RT 3V Stat Exams 04/16/21 15:36 Ordered - Radiology Data #1 Image(s): Knee Image Reviewed: Yes I reviewed the patient's radiology image Preliminary Findings: Normal/NAD [facility] [place] HPI - General Stated complaint: [id number] open wound right leg Time Seen by Provider: 04/16/21 15:33 - History of Present Illness Provider Complaint: Puncture wound to right knee yesterday afternoon. Getting out of truck when tool from truck poked into his right knee. Right knee is swollen and painful to walk on. No fever. Unsure of last tetanus. Onset (ago): day(s) (1) Location: right, lower extremity Quality: burning Relieving factors: none Exacerbating factors: none Associated symptoms: denies other symptoms Treatments prior to arrival: none - Related Data Previous Rx's Medication Instructions Recorded ahvirfhgjjhikpr-yxtjswxpekldaso-VK 5 ml PO Q6H PRN #180 ml 04/04/21 2 mg-30 mg-10 mg/5 mL oral syrup doxycycline hyclate 100 mg tablet 100 mg PO BID #20 tab 04/04/21 Naproxen [Naproxen 500mg tab] 500 mg PO BID 10 Days #20 tab 04/16/21 cephALEXin [cephALEXin 500mg 500 mg PO Q6H 10 Days #40 cap 04/16/21 capsule*] Allergies Allergy/AdvReac Type Severity Reaction Status Date / Time Penicillins [PENICILLINS] Allergy Mild Verified 04/04/21 08:42 [facility] History - Hepatitis A Screen Attestation statement:: This patient has been screened for Hepatitis A risk factors. 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 - Social History Smoking Status: Current every day smoker Tobacco Type: cigarettes, smokeless tobacco # Packs/Day (cigarettes): 1 Alcohol Intake: never Substance Use Type: denies use Occupational Status: employed Family Hx:: No significant family history ROS Obtained: Yes All systems reviewed & no additional complaints - Musculoskeletal Musculoskeletal: Reports as per HPI, Reports joint pain Physical Exam - General General appearance: alert, in no apparent distress - Head Head exam: normocephalic - Eye Eye exam: Present: PERRL - Respiratory Respiratory exam: Present: normal lung sounds bilaterally - Cardiovascular Cardiovascular exam: Present: regular rate, normal rhythm - Expanded Lower Extremity Exam Right Knee exam: Present: tenderness, swelling, erythema, other (puncture wound right medial knee) Gait:
--- NOTE | 2021-04-16 15:36 | XR_ITS ---
PROCEDURE INFORMATION: Exam: XR Right Knee Exam date and time: 04/16/2021 3:36 PM Age: 25 years old Clinical indication: Other: Wound TECHNIQUE: Imaging protocol: XR Right knee. Views: 3 views. COMPARISON: CR [id number]-RT 09/19/2014 9:43 PM FINDINGS: Bones/joints: There is no evidence of acute fracture. There is no evidence of joint malalignment or dislocation. Soft tissues: There are no soft tissue masses or fluid collections. IMPRESSION: 1. No evidence of acute fracture. 2. No evidence of acute dislocation.
[2021-04-16 16:07] VITALS: BP 125/88; PULSE 92; RESP 18; TEMP 36.9; O2SAT 98
== END 2021-04-16 16:10 | disposition home or self-care (01) ==
PROVIDERS: Emergency Provider Physician Assistant; PCP Physician Assistant
DX: S81.031A Puncture wound without foreign body, right knee, initial encounter (principal); W22.8XXA Striking against or struck by other objects, initial encounter; Y92.89 Other specified places as the place of occurrence of the external cause; Y99.8 Other external cause status; Z23 Encounter for immunization
CPT/HCPCS: 73562; 90471; 90715; 99202; G0463

== ENCOUNTER → 2021-04-19 07:54 | Outpatient (CLI) | payer OTHER, SELFPAY ==
--- NOTE | 2021-04-19 07:55 | CT_ITS ---
PROCEDURE: CT ABDOMEN PELVIS WO CON CLINICAL INDICATION: LUQ pain Mid-llq abdominal pain COMPARISON: CT CT ABDOMEN PELVIS W CON from 11/25/2020 TECHNIQUE: Axial images obtained with sagittal and coronal reformats. All CT scans at the facility use one or more dose reduction, viz: automated exposure control, ma/kV adjustment per patient size (including targeted exams where dose is matched to indication, i.e. head), or iterative reconstruction technique. FINDINGS: LOWER THORAX: No acute finding ABDOMEN & PELVIS: Diffuse fatty liver. There is mild splenomegaly at 15 cm. No focal lesion of the spleen apparent. Small splenule is present along the anterior medial aspect of the spleen measuring 17 mm. The adrenal glands and pancreas have an unremarkable appearance. No renal or ureteral calculi. There are few small mesenteric lymph nodes. Prior appendectomy. No intestinal obstruction or free air. There is a mild amount of retained colonic feces. No pelvic mass or abnormal fluid collection. There is a tiny umbilical hernia containing fat. No acute bony anomalies. There are few punctate sclerotic foci within the hips an acetabular region suggesting small bone islands. IMPRESSION: 1. No acute finding. 2. Fatty liver 3. Splenomegaly Dictated by: Joe Garcia MD 04/20/2021 08:14 Joe Garcia MD in [place] 04/20/2021 08:14
== END ==
PROVIDERS: PCP Physician Assistant; Visit Provider Physician Assistant
DX: R10.12 Left upper quadrant pain (principal); R16.1 Splenomegaly, not elsewhere classified; Z87.441 Personal history of nephrotic syndrome
CPT/HCPCS: 74176

== ENCOUNTER → 2021-08-03 17:24 | Outpatient (CLI) | payer OTHER, SELFPAY | PROVIDERS: Visit Provider Physician Assistant | DX: Z20.822 Contact with and (suspected) exposure to COVID-19 (principal); J32.9 Chronic sinusitis, unspecified | CPT/HCPCS: C9803; U0003; U0005 ==

== ENCOUNTER 2021-10-04 19:16 | Emergency (ER) | payer OTHER, SELFPAY ==
[2021-10-04 19:26] VITALS: BP 133/82; PULSE 116; RESP 19; TEMP 38.7; O2SAT 98; BMI 37.5
--- NOTE | 2021-10-04 19:51 | HMH.EDUTC ---
[facility] [place] Disposition Clinical Impression: Viral syndrome Disposition: Home, Self-Care Condition on Discharge: Good Instructions: DI for Viral Syndrome, DI for Fever (Symptom) -- Adult, DI for COVID-19 (Suspected or Confirmed ), Preventing the Spread of Coronavirus Discharge Instructions Additional Instructions: *Monitor Temp, Over the counter Motrin or Tylenol as directed/as needed Tylenol every 4 hours and Motrin every 6 hours (as long as your family doctor has told you that you can take it) for fever or pain. and straight to ER if unable to lower temp less than 101.0 after medication given *Warm salt water gargles may help to soothe the throat *Throat Lozenges *Warm fluids like tea with honey may help to soothe the throat *Sleep elevated *Humidifier/Vaporizer Your throat swab was sent for culture. Those results are typically sent to your primary care. Be sure to follow up in 2-3 days with your family doctor/primary care physician if no improvement so they can review those result and treat if necessary. If you don?t have a primary care doctor, I recommend you get one but in the mean time, you will have to return to a walk in clinic Follow up IMMEDIATELY for new or worsening symptoms or no Noticeable improvement over the next 48-72 hours. 911 for difficulty breathing or swallowing You were tested for today for COVID19 your test result should be back in the next 24-48 hours, you may check your results on the [facility] My Health Portal if you have trouble logging on you may call support to help you You was given a handout with instructions for Self Quarantine and Self isolation for while you wait on test results and what to do if they are positive If you are positive the Health Dept will be contacting you also Make sure to take your Vitamins Vit. C Vit D and Zinc if you can take them Referrals: Shellie Richmond PA [Primary Care Provider] - As needed Forms: Work/School Release Time of Disposition: 20:10 Medical Decision Making - Bennie Inquiry Pt receiving controlled substance: No Bennie was queried for this patient: No Vital Signs: 10/04/21 19:26 10/04/21 19:56 Temperature 101.6 F H 100.1 F H Temperature Source Oral Pulse Rate 116 H Pulse Rate [Left] 116 H Respiratory Rate 19 19 Blood Pressure 133/82 Blood Pressure [Right Arm] 133/82 Blood Pressure Mean [Right Arm] 99 02 Sat by Pulse Oximetry 98 - Lab Data Lab results reviewed: Yes: I reviewed the patient's lab results. Lab Results 10/04/21 19:47: Strep Scn Rapid Clinic Negative Orders (Tests/Meds): ED MEDICATIONS Discontinued Medications Generic Name Dose Route Start Last Admin Trade Name Xiomara PRN Reason Stop Dose Admin Acetaminophen 975 mg 10/04/21 19:50 10/04/21 19:52 Acetaminophen 325mg Tab PO 10/04/21 19:51 975 mg ONCE ONE Administration ORDERS Category Date Time Status Covid-19 Nasal PCR ([facility]) Routine Lab 10/04/21 19:36 Received Strep Screen Confirmation Stat Micro 10/04/21 19:47 Received [facility] [place] HPI - General Stated complaint: covid test and treated for symptoms Time Seen by Provider: 10/04/21 19:57 Mode of Arrival: Ambulatory Source of Information: Patient Limitations: No Limitations Description of Symptoms (Recalled from Triage Doc. by RN): pt c/o ESCOBAR, body aches, congestion and dizziness. mom is positive with covid. HEENT Symptoms (Recalled from RN notes): Yes Resp Symptoms (Recalled from RN notes): No Skin Symptoms (Recalled from RN notes): No MS Symptoms (Recalled from RN notes): No Functional Status (Recalled from RN notes): wnl - History of Present Illness Provider Complaint: Patient state that mother recently tested positive for COVID now he is having symptoms State that he has been having fever and feeling flush all day along body aches, chills, fatigue and dizzy on and off when his fever is up and over all not feeling well State that as the day went on even his hairs on his arms hurt so he came i
[2021-10-04 19:56] VITALS: BP 133/82; PULSE 116; RESP 19; TEMP 37.8
[2021-10-04 20:03] LABS: UTC Strep Screen (Rapid) Negative (Negative)
[2021-10-04 20:23] LABS: UTC Influenza A Antigen Negative (Negative)
[2021-10-04 20:24] LABS: UTC Influenza B Antigen Negative (Negative)
== END 2021-10-04 20:31 | disposition home or self-care (01) ==
PROVIDERS: Emergency Provider Nurse Practitioner; PCP Physician Assistant
DX: U07.1 COVID-19 (principal); F17.210 Nicotine dependence, cigarettes, uncomplicated; Z88.0 Allergy status to penicillin
CPT/HCPCS: 87804; 87880; 99203; C9803; G0463; U0003; U0005

== ENCOUNTER → 2021-10-11 11:28 | Outpatient (CLI) | payer OTHER, SELFPAY | PROVIDERS: Visit Provider Nurse Practitioner | DX: U07.1 COVID-19 (principal) | CPT/HCPCS: C9803; U0003; U0005 ==

== ENCOUNTER 2021-11-06 18:19 | Emergency (ER) | payer OTHER, SELFPAY ==
[2021-11-06 18:20] VITALS: BP 140/97; PULSE 103; RESP 16; TEMP 37.5; O2SAT 98; BMI 29.8
--- NOTE | 2021-11-06 18:42 | XR_ITS ---
PROCEDURE INFORMATION: Exam: XR Chest Exam date and time: 11/06/2021 6:42 PM Age: 26 years old Clinical indication: Cough; Additional info: Chest paink, cough TECHNIQUE: Imaging protocol: XR of the chest. Views: 1 view. COMPARISON: CR CXR2V XR chest 2V 05/25/2018 10:11 PM FINDINGS: Lungs: Unremarkable. No consolidation. Pleural spaces: Unremarkable. No pleural effusion. No pneumothorax. Heart/Mediastinum: Unremarkable. No cardiomegaly. Bones/joints: Unremarkable. IMPRESSION: No acute findings.
--- NOTE | 2021-11-06 19:05 | HMH.EDGENADL ---
ED Disposition Clinical Impression: Viral respiratory infection Disposition: Home, Self-Care Condition on Discharge: Good Additional Instructions: Please follow up with your primary care physician in 2-3 days for further management (via telehealth if covid +). Please follow up with your covid results tomorrow if positive self quarantine for 5 days or until asymptomatic. Please take tylenol and ibuprofen for pain control. Please continue to eat 3 balanced meals and drink plenty of water. Return if difficulty breathing, chest pain or any other concerns. Referrals: Shellie Richmond PA [Primary Care Provider] - Forms: Work/School Release - Critical Care Critical Care Time: No Attestation: On 11/06/21, the high probability of a clinically significant, sudden or life threatening deterioration of the following system(s) required my full and direct attention, intervention and personal management. The time I documented below is in addition to time spent performing reported procedures but includes the following listed in this critical care notation. Medical Decision Making - Medical Records Medical records reviewed: Yes: I reviewed the patient's medical records. - Bennie Inquiry Pt receiving controlled substance: No Vital Signs: 11/06/21 18:20 11/06/21 19:26 Temperature 99.5 F 99 F Temperature Source Oral Oral Pulse Rate 100 H Pulse Rate [Radial] 103 H Respiratory Rate 16 20 Blood Pressure 123/74 Blood Pressure [Right Arm] 140/97 H Blood Pressure Mean [Right Arm] 111 Blood Pressure Position Sitting Blood Pressure Position [Right Arm] Sitting 02 Sat by Pulse Oximetry 98 Oxygen Delivery Method Room Air Room Air - Lab Data Lab results reviewed: Yes: I reviewed the patient's lab results. Orders (Tests/Meds): ORDERS Category Date Time Status Covid-19 Nasal PCR ([facility]) Routine Lab 11/06/21 18:45 Received Medical Decision Narrative: Mr. Schmitz is a 26 yo male unvaccinated, but otherwise healthy who presents to the ED w/ 2d of non productive cough and sore throat. Patient is afebrile and hemodynamically stable. Physical exam patient is satting 99% on RA and breathing comfortably with no wheezing, rhales, rhonchi or stridor on exam. CXR obtained which shows no evidenceo of pneumonia, noormal cardiopulmoary silhouette. Patient is swabbed for COVID 19 and instructed to fu w/ results in 24 hours, if pos patient informed to self quarantine for 5 d or until asymptomatic. Patient discharged in stable condtiion and will fu w/ his pcp via telehalth if pos. Patient instructed to return if difficulty breathing, chest pain, symptoms that don't improve. General Adult HPI - General Chief complaint: Upper Respiratory Infection Stated complaint: sore throat cough headache congestion Time Seen by Provider: 11/06/21 18:25 Mode of Arrival: Ambulatory Source of Information: Patient Limitations: No Limitations Description of Symptoms (Recalled from ER Triage Doc. by RN): TO ED PER PVT CAR WITH C/O COUGH, CONGESTION STARTING YESTERDAY. PT DENIES FEVER - History of Present Illness HPI narrative: Mr. Schmitz is a 26 yo male w/ no significant PMH, unvaccinated who presents to the ED w/ 2d of non productive cough, sore throat and chest pain while coughing. Patient also arrives to ED w/ his son who has similar symptoms which started today. Patient denies any sick contacts. No COVID exposures. Patient denies any LE swelling/hemoptysis or hx of blood clots. Patient reports chest pain is only during coughing episodes. No orpharyngeal exudate. No dyspnea, bowel changes, urinary sx, abdominal pain, fevers or chills. MD complaint: sore throat, cough - Related Data Previous Rx's Medication Instructions Recorded tpkcvdvaheuwpax-cfntatxmnnfibrt-RT 5 ml PO Q6H PRN #180 ml 08/03/21 2 mg-30 mg-10 mg/5 mL oral syrup prednisone 20 mg tablet 20 mg PO BID #10 tab 08/03/21 Allergies Allergy/AdvReac Type Severity Shy
[2021-11-06 19:26] VITALS: BP 123/74; PULSE 100; RESP 20; TEMP 37.2; O2SAT 98
== END 2021-11-06 19:28 | disposition home or self-care (01) ==
PROVIDERS: Emergency Provider Student in an Organized Health Care Education/Training Program; PCP Physician Assistant
DX: J06.9 Acute upper respiratory infection, unspecified (principal); F17.210 Nicotine dependence, cigarettes, uncomplicated; Z20.822 Contact with and (suspected) exposure to COVID-19
CPT/HCPCS: 71045; 99282; C9803; U0003; U0005

== ENCOUNTER 2021-12-24 10:12 | Emergency (ER) | payer OTHER, SELFPAY ==
[2021-12-24 10:15] VITALS: BP 155/90; PULSE 120; RESP 18; TEMP 38; O2SAT 100; BMI 35.1
[2021-12-24 10:37] LABS: UTC Influenza A Antigen Negative (Negative); UTC Influenza B Antigen Negative (Negative)
--- NOTE | 2021-12-24 10:44 | HMH.EDUTC ---
[facility] [place] Clinical Impression: Upper respiratory infection Qualifiers: URI type: unspecified viral URI Qualified Code(s): J06.9 - Acute upper respiratory infection, unspecified Disposition: Home, Self-Care Condition on Discharge: Good Instructions: DI for Viral Upper Respiratory Infection -- Adult Additional Instructions: No sign of a bacterial infection. Likely viral. Viruses can take 7-14 days to run their course. Nasal saline and bulb syringe or nose [place] to remove nasal drainage to help with nasal congestion. Hard to eat, drink, sleep with nasal congestion so important to keep this cleaned out. Monitor temp. Tylenol or Motrin as needed for pain or fever Encourage fluids, water, Gatorade, Powerade, Pedialyte if infant/toddler/child Warm salt water gargles Warm fluids Sore throat lozenges Sleep elevated Humidifier/vaporizer Follow-up immediately for new or worsening symptoms or no noticeable improvement over the next 48-72 hours. Referrals: Shellie Richmond PA [Primary Care Provider] - Time of Disposition: 10:56 Medical Decision Making - Bennie Inquiry Pt receiving controlled substance: No Vital Signs: 12/24/21 10:15 Temperature 100.4 F H Temperature Source Oral Pulse Rate [Right Brachial] 120 H Respiratory Rate 18 Blood Pressure [Right Arm] 155/90 H Blood Pressure Mean [Right Arm] 111 Blood Pressure Source [Right Arm] Automatic Cuff Blood Pressure Position [Right Arm] Sitting 02 Sat by Pulse Oximetry 100 Oxygen Delivery Method Room Air - Lab Data Lab Results 12/24/21 10:20: Group A Strep Rapid Negative 12/24/21 10:23: Influenza Type A Ag Negative, Influenza Type B Ag Negative Orders (Tests/Meds): ORDERS Category Date Time Status Strep Screen Confirmation Stat Micro 12/24/21 10:20 Received [facility] [place] - General Chief complaint: [facility] Stated complaint: vomiting, diarrhea, fever, h/a, sore throat Time Seen by Provider: 12/24/21 10:44 Mode of Arrival: Ambulatory Source of Information: Patient Limitations: No Limitations Description of Symptoms (Recalled from Triage Doc. by RN): PATIENT C/O VOMITING, DIARRHEA, SORE THROAT, HEADACHE, BODY ACHES CHILLS AND FEVER X 2 DAYS HEENT Symptoms (Recalled from RN notes): Yes Resp Symptoms (Recalled from RN notes): No Skin Symptoms (Recalled from RN notes): No MS Symptoms (Recalled from RN notes): No Functional Status (Recalled from RN notes): WNL - History of Present Illness Provider Complaint: 26 yr old male presents for sore throat,n/v/d,body aches,chills and fever for 2 days - Related Data Allergies Allergy/AdvReac Type Severity Reaction Status Date / Time Penicillins [PENICILLINS] Allergy Mild Verified 08/03/21 15:22 - Worker's Comp Is this a Worker's Comp case?: No [facility] History - Hepatitis A Screen Drug use history?: No High risk sexual behaviors?: No History of sexually transmitted infection?: No Currently employed?: No Childcare worker?: No Do you have indoor plumbing?: Yes Do you have electricity?: Yes Attestation statement:: This patient has been screened for Hepatitis A risk factors. 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 - Social History Smoking Status: Current every day smoker Tobacco Type: cigarettes, smokeless tobacco # Packs/Day (cigarettes): 1 Alcohol Intake: never Substance Use Type: denies use Occupational Status: employed Family Hx:: No significant family history ROS Obtained: Yes Systems reviewed as appropriate & no additional complaints - Constitutional Constitutional: Reports system reviewed and no additional complaints, except as docu, Reports body ache, Reports chills, Reports fever(s) - Eyes Eyes: Reports system reviewed and no additional complaints, excep
[2021-12-24 10:53] LABS: Strep Scrn Group A (Rapid) Negative (Negative)
[2021-12-24 10:54] VITALS: BP 155/90; PULSE 120; RESP 18; TEMP 38; O2SAT 100
== END 2021-12-24 11:00 | disposition home or self-care (01) ==
PROVIDERS: Emergency Provider Nurse Practitioner Family; PCP Physician Assistant
DX: J06.9 Acute upper respiratory infection, unspecified (principal); R11.10 Vomiting, unspecified; R19.7 Diarrhea, unspecified; R51.9 Headache, unspecified; F17.290 Nicotine dependence, other tobacco product, uncomplicated; Z79.52 Long term (current) use of systemic steroids; Z88.0 Allergy status to penicillin
CPT/HCPCS: 87430; 87804; 99213; G0463

== ENCOUNTER 2022-01-07 02:03 | Emergency (ER) | payer OTHER, SELFPAY ==
[2022-01-07 02:04] VITALS: RESP 20; O2SAT 99; BMI 36.6
[2022-01-07 02:17] VITALS: BMI 36.6
--- NOTE | 2022-01-07 02:18 | XR_ITS ---
PROCEDURE INFORMATION: Exam: XR Chest Exam date and time: 01/07/2022 2:22 AM Age: 26 years old Clinical indication: Cough TECHNIQUE: Imaging protocol: XR of the chest. Views: 2 views. COMPARISON: CR XR CHEST PORTABLE 11/06/2021 6:44 PM FINDINGS: Lungs: Central opacities with peribronchial cuffing, seen to advantage on the lateral chest radiograph suggest viral process versus reactive airways without convincing consolidation. Pleural spaces: Unremarkable. No pleural effusion. No pneumothorax. Heart/Mediastinum: Unremarkable. No cardiomegaly. Bones/joints: Unremarkable. IMPRESSION: Central opacities with peribronchial cuffing, seen to advantage on the lateral chest radiograph suggest viral process versus reactive airways without convincing consolidation.
[2022-01-07 02:29] LABS: Basophils # 0.2 K/mm3 (0-0.2); Basophils % 2.2 % (0.1-2.0); Eosinophils # 0.2 K/mm3 (0.0-0.4); Eosinophils % 1.5 % (0.1-12.0); Hematocrit 43.4 % (42.0-52.0); Hemoglobin 15.1 g/dL (14.1-18.0); Lymphocytes # 2.6 K/mm3 (0.7-4.5); Lymphocytes % 25.9 % (10-50); Mean Corpuscular HGB Conc 34.8 g/dL (31.8-35.4); Mean Corpuscular Hemoglobin 28.5 pg (27.0-31.2); Mean Corpuscular Volume 81.7 fl (80-94); Mean Platelet Volume 8.1 fl (7.4-10.4); Monocytes # 0.5 K/mm3 (0.1-1.0); Monocytes % 5.3 % (1.7-9.3); Neutrophils # 6.5 K/mm3 (1.8-7.8); Neutrophils % 65.1 % (37.0-80.0); Platelet Count 243 K/mm3 (142-424); Red Blood Count 5.32 M/mm3 (4.60-6.20); Red Cell Distribution Width 14.2 % (11.5-17.5)
[2022-01-07 02:30] LABS: Coronavirus 19, PCR Not Detected (NotDetected); Influenza A, PCR Not Detected (NotDetected); Influenza B, PCR Not Detected (NotDetected)
[2022-01-07 02:37] LABS: Alanine Aminotransferase 52 U/L (12-78); Albumin Level 4.3 g/dl (3.5-5.0); Albumin/Globulin Ratio 1.2 (1.1-1.8); Alkaline Phosphatase 75 U/L (38-126); Anion Gap 10.9 mEq/L (5-15); Aspartate Amino Transferase 44 U/L (17-59); Bilirubin,Total 0.6 mg/dl (0.2-1.3); Blood Urea Nitrogen 17 mg/dl (9-20); Calcium 8.6 mg/dl (8.4-10.2); Carbon Dioxide 26 mmol/L (22.0-30.0); Chloride 106 mmol/L (98-107); Creatinine Clearance Estimated 205 mL/min (50-200); Estimated Glomerular Filt Rate 90 ml/min (>60); GFR (African American) 109 ML/MIN (>60); Globulin 3.6 g/dL (1.3-3.2); Glucose 113 mg/dl (74-100); Potassium 3.9 mmoL/L (3.5-5.1); Sodium 139 mmol/L (136-145); Total Protein,Serum 7.9 g/dl (6.3-8.2)
[2022-01-07 02:38] LABS: Lactic Acid 1.1 mmol/L (0.7-2.1)
[2022-01-07 02:43] LABS: C-Reactive Protein 34.7 mg/L (0-4)
--- NOTE | 2022-01-07 02:51 | HMH.EDURI ---
ED Disposition Clinical Impression: Bronchitis Disposition: Home, Self-Care Condition on Discharge: Good Instructions: DI for Acute Bronchitis Additional Instructions: fluids and use meds and see pcp for jess villanueva Prescriptions: Benzonatate [Benzonatate 100mg cap] 100 mg PO TID #21 cap Transmission Status: Pending to [facility] predniSONE [Prednisone 20mg Tab] 20 mg PO BID #10 tab Transmission Status: Pending to [facility] Azithromycin [Zithromax 250mg tab] 250 mg PO DIRECTED #6 tab Transmission Status: Pending to [facility] Referrals: Shellie Richmond PA [Primary Care Provider] - - Critical Care Critical Care Time: No Attestation: On 01/07/22, the high probability of a clinically significant, sudden or life threatening deterioration of the following system(s) required my full and direct attention, intervention and personal management. The time I documented below is in addition to time spent performing reported procedures but includes the following listed in this critical care notation. Medical Decision Making - Medical Records Medical records reviewed: Yes: I reviewed the patient's medical records. - Bennie Inquiry Pt receiving controlled substance: No Vital Signs: 01/07/22 02:04 Respiratory Rate 20 02 Sat by Pulse Oximetry 99 Oxygen Delivery Method Room Air - Lab Data Lab results reviewed: Yes: I reviewed the patient's lab results. Lab Results 01/07/22 02:10: WBC 10.0, RBC 5.32, Hgb 15.1, Hct 43.4, MCV 81.7, MCH 28.5, MCHC 34.8, RDW 14.2, Plt Count 243, MPV 8.1, Neut % (Auto) 65.1, Lymph % (Auto) 25.9, [place] % (Auto) 5.3, Eos % (Auto) 1.5, Baso % (Auto) 2.2 H, Neut # (Auto) 6.5, Lymph # (Auto) 2.6, [place] # (Auto) 0.5, Eos # (Auto) 0.2, Baso # (Auto) 0.2 01/07/22 02:10: Sodium 139, Potassium 3.9, Chloride 106, Carbon Dioxide 26, Anion Gap 10.9, BUN 17, Creatinine 1.00, Estimated Creat Clear 205, Estimated GFR 90, Est GFR ( Amer) 109, Glucose 113 H, Calcium 8.6, Total Bilirubin 0.6, AST 44, ALT 52, Alkaline Phosphatase 75, Total Protein 7.9, Albumin 4.3, Globulin 3.6 H, Albumin/Globulin Ratio 1.2 01/07/22 02:10: Lactate 1.1 01/07/22 02:10: Group A Strep Rapid Negative 01/07/22 02:10: SARS-CoV-2 (PCR) Not detected, Influenza A Untype (PCR) Not detected, Influenza Type B (PCR) Not detected 01/07/22 02:10: C-Reactive Protein 34.7 H, Procalcitonin 0.089 01/07/22 02:10: ESR 18 H Result diagrams: 01/07/22 02:10 01/07/22 02:10 Orders (Tests/Meds): ED MEDICATIONS Generic Name Dose Route Start Last Admin Trade Name Freq PRN Reason Stop Dose Admin Sodium Chloride 1,000 mls @ 999 mls/hr 01/07/22 02:30 Sod Chlor 0.9% 1000ml Bag IV 01/07/22 03:30 .Q1H1M VERNON Sodium Chloride 1,000 mls @ 999 mls/hr 01/07/22 02:30 Sod Chlor 0.9% 1000ml Bag IV 01/07/22 03:30 .Q1H1M VERNON Discontinued Medications Generic Name Dose Route Start Last Admin Trade Name Freq PRN Reason Stop Dose Admin Sodium Chloride 500 mls @ 999 mls/hr 01/07/22 02:30 Sod Chlor 0.9% 1000ml Bag IV 01/07/22 03:00 .Q31M VERNON Ketorolac Tromethamine 30 mg 01/07/22 02:20 01/07/22 02:28 Ketorolac 30mg/Ml Vial IV 01/07/22 02:21 30 mg ONCE ONE Administration Methylprednisolone Sodium Succinate 125 mg 01/07/22 02:20 01/07/22 02:27 Methylprednisolone Sod Succ 125mg Vial IV 01/07/22 02:21 125 mg ONCE ONE Administration ORDERS Category Date Time Status XR chest 2V Stat Exams 01/07/22 02:18 Taken Blood Culture Stat Micro 01/07/22 02:10 Received Strep Screen Confirmation Stat Micro 04/17/22 02:10 Received - Radiology Data #1 Image(s): Chest Image Reviewed: Yes I reviewed the patient's radiology image Preliminary Findings: Abnormal (patchy changes ) Medical Decision Narrative: has cough with some blood with prob pharyngitis/bronchitis with stable exam and labs URI/Sore Throat HPI - General Chief Complai
[2022-01-07 02:52] LABS: Erythrocyte Sedimentation Rate 18 mm/hr (0-15)
[2022-01-07 02:53] LABS: Strep Scrn Group A (Rapid) Negative (Negative)
[2022-01-07 02:54] LABS: Procalcitonin 0.089 ng/mL (0.0-2.0)
[2022-01-07 03:10] VITALS: BP 123/63; PULSE 80; RESP 19; TEMP 36.7; O2SAT 98
== END 2022-01-07 03:16 | disposition home or self-care (01) ==
PROVIDERS: Emergency Provider Emergency Medicine; PCP Physician Assistant
DX: J06.9 Acute upper respiratory infection, unspecified (principal); J40 Bronchitis, not specified as acute or chronic; F17.290 Nicotine dependence, other tobacco product, uncomplicated; Z20.822 Contact with and (suspected) exposure to COVID-19; Z79.52 Long term (current) use of systemic steroids; Z88.0 Allergy status to penicillin
CPT/HCPCS: 71046; 80053; 83605; 84145; 85025; 85651; 86140; 87040; 87430; 96361; 96365; 96374; 96375; 99285; C9803; U0003; U0005

== ENCOUNTER 2022-01-24 22:58 | Emergency (ER) | payer OTHER, SELFPAY ==
[2022-01-24 23:00] VITALS: BP 128/87; PULSE 94; RESP 16; TEMP 36.8; O2SAT 97; BMI 36.6
--- NOTE | 2022-01-24 23:30 | XR_ITS ---
PROCEDURE INFORMATION: Exam: XR Sacrum and Coccyx, 2 or More Views Exam date and time: 01/24/2022 11:38 PM Age: 26 years old Clinical indication: Injury or trauma; Blunt trauma (contusions or hematomas); Injury details: Fall x1 week ago, also fell again today on metal tractor seat. Pain in tailbone TECHNIQUE: Imaging protocol: XR of the sacrum and coccyx, 2 or more views. COMPARISON: CR XR LUMBAR SPINE 2-3V 01/24/2022 11:37 PM FINDINGS: Bones/joints: No evidence of acute fracture. Soft tissues: Normal. IMPRESSION: No evidence of acute fracture. If symptoms persist, recommend repeat radiograph in 5-7 days.
--- NOTE | 2022-01-24 23:30 | XR_ITS ---
PROCEDURE INFORMATION: Exam: XR Lumbosacral Spine Exam date and time: 01/24/2022 11:37 PM Age: 26 years old Clinical indication: Injury or trauma; Blunt trauma (contusions or hematomas); Injury details: Fall x1 week ago, also fell again today on metal tractor seat. Pain in tailbone; Patient HX: Denies pain radiating to legs or in low back TECHNIQUE: Imaging protocol: XR of the lumbosacral spine. Views: 2 or 3 views. COMPARISON: CR XR PELVIS 1-2V 01/24/2022 11:36 PM FINDINGS: Bones/joints: No evidence of acute fracture. Soft tissues: Unremarkable. IMPRESSION: No evidence of acute fracture. If symptoms persist, recommend repeat radiograph in 5-7 days.
--- NOTE | 2022-01-24 23:30 | XR_ITS ---
PROCEDURE INFORMATION: Exam: XR Pelvis Exam date and time: 01/24/2022 11:36 PM Age: 26 years old Clinical indication: Injury or trauma; Blunt trauma (contusions or hematomas); Does not apply; Coccyx; Injury details: Fall x1 week ago, pain in tailbone. Also fell again today on metal tractor seat TECHNIQUE: Imaging protocol: XR pelvis. Views: 1 or 2 view. COMPARISON: CT ABDOMEN PELVIS WO CON 04/19/2021 8:34 AM FINDINGS: Bones/joints: No evidence of acute fracture. Soft tissues: Unremarkable. IMPRESSION: No evidence of acute fracture. If symptoms persist, recommend repeat radiograph in 5-7 days.
--- NOTE | 2022-01-25 00:02 | HMH.EDBACK ---
ED Disposition Clinical Impression: Coccyx contusion Qualifiers: Encounter type: initial encounter Qualified Code(s): S30.0XXA - Contusion of lower back and pelvis, initial encounter Acute lumbar myofascial strain Qualifiers: Encounter type: initial encounter Qualified Code(s): S39.012A - Strain of muscle, fascia and tendon of lower back, initial encounter Disposition: Home, Self-Care Condition on Discharge: Good Instructions: DI for Low Back Pain Additional Instructions: use meds and see pcp for follow up Prescriptions: Meloxicam [Mobic 15 mg tab] 15 mg PO DAILY #10 tab Transmission Status: Pending to [facility] Referrals: Shellie Richmond PA [Primary Care Provider] - - Critical Care Critical Care Time: No Attestation: On 01/24/22, the high probability of a clinically significant, sudden or life threatening deterioration of the following system(s) required my full and direct attention, intervention and personal management. The time I documented below is in addition to time spent performing reported procedures but includes the following listed in this critical care notation. Medical Decision Making - Medical Records Medical records reviewed: Yes: I reviewed the patient's medical records. - Bennie Inquiry Pt receiving controlled substance: No Vital Signs: 01/24/22 23:00 Temperature 98.3 F Temperature Source Oral Pulse Rate [Left] 94 H Respiratory Rate 16 Blood Pressure [Right Arm] 128/87 Blood Pressure Mean [Right Arm] 100 02 Sat by Pulse Oximetry 97 Oxygen Delivery Method Room Air - Radiology Data #1 Image(s): L-Spine, Pelvis, Other (sacrum) Image Reviewed: Yes I have reviewed radiologist's interpretation Preliminary Findings: No Fracture Seen Medical Decision Narrative: has fall with injury coocyx area but no fx Back Pain HPI - General Chief Complaint: Back Pain/Injury Stated Complaint: AO05/04 fall ,pain in tailbone Time Seen by Provider: 01/25/22 00:02 Mode of Arrival: Ambulatory Source of Information: Patient, Medical Record Limitations: No Limitations Description of Symptoms (Recalled from ER Triage Doc. by RN): pt stated that he fell 2 weeks ago from about 3 feet on his tail bone and had mild pain a few days ago he was going to sit on the metal seat on his tractor and his foot slipped and he slammed down on the seat causing more pain and now states that he is unable to sit comfortable and has to lean to the side for pressure relief - History of Present Illness HPI Narrative: fall anbd injury to lumbar and coccyx area Complaint: back injury Onset (ago): day(s) Similar Symptoms Previously: Yes Location: lumbar spine, sacrum Severity: moderate Associated symptoms: denies other symptoms - Related Data Previous Rx's Medication Instructions Recorded Azithromycin [Zithromax 250mg 250 mg PO DIRECTED #6 tab 01/07/22 tab] Benzonatate [Benzonatate 100mg 100 mg PO TID #21 cap 01/07/22 cap] predniSONE [Prednisone 20mg 20 mg PO BID #10 tab 01/07/22 Tab] Meloxicam [Mobic 15 mg tab] 15 mg PO DAILY #10 tab 01/25/22 Allergies Allergy/AdvReac Type Severity Reaction Status Date / Time Penicillins [PENICILLINS] Allergy Mild Verified 01/07/22 02:17 [facility] History - Hepatitis A Screen Attestation statement:: This patient has been screened for Hepatitis A risk factors. 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 - Social History Smoking Status: Current every day smoker Tobacco Type: cigarettes, smokeless tobacco # Packs/Day (cigarettes): 1 Alcohol Intake: never Substance Use Type: denies use Occupational Status: employed Family Hx:: No significant family history ROS Obtained: Yes All systems reviewed & no additional
[2022-01-25 01:26] VITALS: BP 135/94; PULSE 92; RESP 16; TEMP 36.8; O2SAT 98
== END 2022-01-25 01:27 | disposition home or self-care (01) ==
PROVIDERS: Emergency Provider Emergency Medicine; PCP Physician Assistant
DX: S30.0XXA Contusion of lower back and pelvis, initial encounter (principal); S39.012A Strain of muscle, fascia and tendon of lower back, initial encounter; Z88.0 Allergy status to penicillin; Z72.0 Tobacco use; W19.XXXA Unspecified fall, initial encounter
CPT/HCPCS: 72100; 72170; 72220; 99284

== ENCOUNTER 2022-02-09 23:48 | Emergency (ER) | payer OTHER, SELFPAY ==
[2022-02-09 23:49] VITALS: BP 127/88; PULSE 91; RESP 16; TEMP 36.6; O2SAT 95; BMI 35.9
--- NOTE | 2022-02-10 00:24 | HMH.EDNVD ---
ED Disposition Clinical Impression: Colitis, Nonalcoholic steatohepatitis ([place]) Disposition: Home, Self-Care Condition on Discharge: Good Instructions: DI for Colitis Additional Instructions: use meds and see pcp saturday for jess villanueva Prescriptions: levoFLOXacin [Levaquin 500mg tab] 500 mg PO DAILY #7 tab Transmission Status: Pending to [facility] metroNIDAZOLE [metroNIDAZOLE 500mg Tablet] 500 mg PO TID #30 tab Transmission Status: Pending to [facility] Referrals: Shellie Richmond PA [Primary Care Provider] - - Critical Care Critical Care Time: No Attestation: On 02/09/22, the high probability of a clinically significant, sudden or life threatening deterioration of the following system(s) required my full and direct attention, intervention and personal management. The time I documented below is in addition to time spent performing reported procedures but includes the following listed in this critical care notation. Medical Decision Making - Medical Records Medical records reviewed: Yes: I reviewed the patient's medical records. - Bennie Inquiry Pt receiving controlled substance: No Vital Signs: 02/09/22 23:49 Temperature 97.9 F Temperature Source Oral Pulse Rate [Left] 91 H Respiratory Rate 16 Blood Pressure [Right Arm] 127/88 Blood Pressure Mean [Right Arm] 101 02 Sat by Pulse Oximetry 95 Oxygen Delivery Method Room Air - Lab Data Lab results reviewed: Yes: I reviewed the patient's lab results. Lab Results 02/10/22 00:03: Urine Color Yellow, Urine Appearance Clear, Urine pH 5.0, Ur Specific [place] >= 1.030, Urine Protein 2+, Urine Glucose (UA) Negative, Urine Ketones Negative, Urine Blood 2+, Urine Nitrate Negative, Urine Bilirubin Negative, Urine Urobilinogen 0.2, Ur Leukocyte Esterase Negative, Urine RBC 5-10, Urine WBC 3-5, Amorphous Sediment Trace, Urine Mucus 4+ 02/10/22 00:20: WBC 9.7, RBC 5.78, Hgb 16.5, Hct 46.6, MCV 80.6, MCH 28.6, MCHC 35.5 H, RDW 14.7, Plt Count 247, MPV 8.0, Neut % (Auto) 57.9, Lymph % (Auto) 31.3, [place] % (Auto) 6.2, Eos % (Auto) 2.0, Baso % (Auto) 2.6 H, Neut # (Auto) 5.6, Lymph # (Auto) 3.0, [place] # (Auto) 0.6, Eos # (Auto) 0.2, Baso # (Auto) 0.3 H, ESR 18 H 02/10/22 00:20: Sodium 140, Potassium 3.9, Chloride 106, Carbon Dioxide 26, Anion Gap 11.9, BUN 12, Creatinine 0.80, Estimated Creat Clear 251, Estimated GFR 117, Est GFR ( Amer) 141, Glucose 113 H, Calcium 9.1, Total Bilirubin 0.6, AST 52, ALT 70, Alkaline Phosphatase 86, C-Reactive Protein 5.4 H, Total Protein 7.8, Albumin 4.4, Globulin 3.4 H, Albumin/Globulin Ratio 1.3, Amylase 64, Lipase 41 02/10/22 00:20: Procalcitonin 0.088 Result diagrams: 02/10/22 00:20 02/10/22 00:20 Orders (Tests/Meds): ED MEDICATIONS Generic Name Dose Route Start Last Admin Trade Name Freq PRN Reason Stop Dose Admin Sodium Chloride 1,000 mls @ 999 mls/hr 02/10/22 00:30 02/10/22 00:46 Sod Chlor 0.9% 1000ml Bag IV 02/10/22 01:30 999 mls/hr .Q1H1M VERNON Administration Sodium Chloride 8 ml 02/10/22 00:25 Sodium Chloride 0.9% 10ml Vial IV 03/12/22 00:24 NEEDED PRN dilute pepcid Discontinued Medications Generic Name Dose Route Start Last Admin Trade Name Freq PRN Reason Stop Dose Admin Famotidine 20 mg 02/10/22 00:25 02/10/22 01:26 Famotidine 20mg/2ml Vial IV 02/10/22 00:26 Not Given ONCE ONE Ketorolac Tromethamine 30 mg 02/10/22 00:24 02/10/22 00:46 Ketorolac 30mg/Ml Vial IV 02/10/22 00:25 30 mg ONCE ONE Administration Metoclopramide HCl 10 mg 02/10/22 00:25 02/10/22 01:26 Metoclopramide Hcl 10mg/2ml Vial IVP 05/21/22 00:26 Not Given ONCE ONE Ondansetron HCl 4 mg 02/10/22 00:24 02/10/22 00:46 Ondansetron 4mg/2ml Vial IV 02/10/22 00:25 4 mg ONCE ONE Administration - CT Data CT Scan: Abdomen, Pelvis Time Received: 02:[address] Reviewed: Yes: I have viewed the radiologist's interpretation Preliminary Fi
--- NOTE | 2022-02-10 00:28 | CT_ITS ---
PROCEDURE INFORMATION: Exam: CT Abdomen And Pelvis Without Contrast Exam date and time: 02/10/2022 12:35 AM Age: 26 years old Clinical indication: Abdominal pain; Localized; Left lower quadrant (llq); Prior surgery; Surgery date: 6+ months; Surgery type: Appendix; Additional info: Abd pain TECHNIQUE: Imaging protocol: Computed tomography of the abdomen and pelvis without contrast. Radiation optimization: All CT scans at this facility use at least one of these dose optimization techniques: automated exposure control; mA and/or kV adjustment per patient size (includes targeted exams where dose is matched to clinical indication); or iterative reconstruction. COMPARISON: CT ABDOMEN PELVIS WO CON 04/19/2021 8:34 AM FINDINGS: Lungs: Lung bases are free of consolidation effusions pneumothorax or pulmonary nodules. Liver: Hepatomegaly of 24 cm There is diffuse liver hypodensity compatible with steatosis. No evidence of intrahepatic biliary dilatation. Gallbladder and bile ducts: There is no evidence of cholelithiasis gallbladder wall thickening or pericholecystic fluid. No ductal dilation identified. Pancreas: No focal lesions or inflammatory changes. No evidence of ductal dilatation, peripancreatic fluid or cystic collections identified. Spleen: Intact with no focal lesions. No splenomegaly. Adrenal glands: Normal. No mass. Kidneys and ureters: No focal lesions, hydronephrosis or nephrolithiasis. The ureters follow a normal course into the [place] bladder without dilatation calculi with displacement. Stomach and bowel: Stomach is unremarkable. Air and stool noted scattered throughout nondilated small bowel loops. Mild diffuse concentric wall thickening of the transverse, descending, sigmoid colon and rectum suggestive of mild colitis. Appendix: Surgically absent. Intraperitoneal space: Unremarkable. No free air. No significant fluid collection. Vasculature: Unremarkable. No abdominal aortic aneurysm. Lymph nodes: Unremarkable. No enlarged lymph nodes. Urinary bladder: Unremarkable as visualized. Reproductive: Unremarkable as visualized. Bones/joints: Unremarkable. No acute fracture. Soft tissues: Unremarkable. IMPRESSION: 1. Hepatomegaly of 24 cm. Severe liver steatosis. Nonalcoholic Steatohepatitis ([place]). 2. Mild diffuse concentric wall thickening of the transverse, descending, sigmoid colon and rectum suggestive of mild colitis.
[2022-02-10 00:29] LABS: Basophils # 0.3 K/mm3 (0-0.2); Basophils % 2.6 % (0.1-2.0); Eosinophils # 0.2 K/mm3 (0.0-0.4); Hematocrit 46.6 % (42.0-52.0); Hemoglobin 16.5 g/dL (14.1-18.0); Lymphocytes % 31.3 % (10-50); Mean Corpuscular HGB Conc 35.5 g/dL (31.8-35.4); Mean Corpuscular Hemoglobin 28.6 pg (27.0-31.2); Mean Corpuscular Volume 80.6 fl (80-94); Monocytes # 0.6 K/mm3 (0.1-1.0); Monocytes % 6.2 % (1.7-9.3); Neutrophils # 5.6 K/mm3 (1.8-7.8); Neutrophils % 57.9 % (37.0-80.0); Platelet Count 247 K/mm3 (142-424); Red Blood Count 5.78 M/mm3 (4.60-6.20); Red Cell Distribution Width 14.7 % (11.5-17.5); White Blood Count 9.7 K/mm3 (4.8-10.8)
[2022-02-10 00:32] LABS: Potassium 3.9 mmoL/L (3.5-5.1); Sodium 140 mmol/L (136-145)
[2022-02-10 00:34] LABS: Amylase 64 U/L (30-110); Blood Urea Nitrogen 12 mg/dl (9-20); Chloride 106 mmol/L (98-107); Creatinine Clearance Estimated 251 mL/min (50-200); Estimated Glomerular Filt Rate 117 ml/min (>60); GFR (African American) 141 ML/MIN (>60)
[2022-02-10 00:35] LABS: Alanine Aminotransferase 70 U/L (12-78); Albumin Level 4.4 g/dl (3.5-5.0); Albumin/Globulin Ratio 1.3 (1.1-1.8); Alkaline Phosphatase 86 U/L (38-126); Anion Gap 11.9 mEq/L (5-15); Aspartate Amino Transferase 52 U/L (17-59); Bilirubin,Total 0.6 mg/dl (0.2-1.3); Calcium 9.1 mg/dl (8.4-10.2); Carbon Dioxide 26 mmol/L (22.0-30.0); Globulin 3.4 g/dL (1.3-3.2); Glucose 113 mg/dl (74-100); Lipase 41 U/L (23-300); Total Protein,Serum 7.8 g/dl (6.3-8.2)
[2022-02-10 00:40] LABS: Microscopic, Urine URINE MICROSCOPIC (MICROSCOPIC)
[2022-02-10 00:41] LABS: C-Reactive Protein 5.4 mg/L (0-4)
[2022-02-10 00:42] LABS: Appearance,Urine CLEAR (Clear); Blood, Urine 2+ (Negative); Color,Urine YELLOW (Yellow); Glucose,Urine (UA) Negative (Negative); Ketones,Urine Negative (Negative); Leukocyte Esterase,Urine Negative (Negative); Nitrate,Urine Negative (Negative); Protein,Urine 2+ (Negative); Specific Gravity, Urine >= 1.030 (1.005-1.030); Urobilinogen,Urine 0.2 EU/dl (0.2)
[2022-02-10 00:45] LABS: Bilirubin,Urine Negative (Negative)
[2022-02-10 00:46] LABS: Amorphous Sediment,Urine Trace /lpf; Mucus,Urine 4+ /lpf
[2022-02-10 00:57] LABS: Erythrocyte Sedimentation Rate 18 mm/hr (0-15); Procalcitonin 0.088 ng/mL (0.0-2.0)
[2022-02-10 02:43] VITALS: BP 128/75; PULSE 76; RESP 18; TEMP 36.7; O2SAT 98
== END 2022-02-10 03:16 | disposition home or self-care (01) ==
PROVIDERS: Emergency Provider Emergency Medicine; PCP Physician Assistant
DX: K52.9 Noninfective gastroenteritis and colitis, unspecified (principal); K75.81 Nonalcoholic steatohepatitis (NASH); F17.210 Nicotine dependence, cigarettes, uncomplicated; Z88.0 Allergy status to penicillin
CPT/HCPCS: 74176; 80053; 81001; 82150; 83690; 84145; 85025; 85651; 86140; 96365; 96375; J0696; J2405

== ENCOUNTER 2022-02-21 13:34 | Emergency (ER) | payer OTHER, SELFPAY ==
--- NOTE | 2022-02-21 13:38 | XR_ITS ---
FINAL REPORT CLINICAL HISTORY: Knee locked up, patient unable to fully extend knee, pain COMPARISON: 04/16/2021 FINDINGS: RIGHT KNEE Three views were obtained. There is no acute fracture or dislocation. No joint effusion is identified. The joint spaces appear normal. No soft tissue abnormality is identified. IMPRESSION: No acute process. Reviewed, Interpreted and Dictated by Armando Cristobal III, MD Transcribed by Sarah Dickerson Authenticated and [facility]
--- NOTE | 2022-02-21 13:41 | PC.NURSE ---
pt going to xray with electronics engineering technician
[2022-02-21 14:17] VITALS: BP 141/96; PULSE 87; RESP 18; TEMP 37; O2SAT 100; BMI 35.9
--- NOTE | 2022-02-21 14:42 | HMH.EDUTC ---
[facility] [place] Disposition Clinical Impression: Knee sprain Qualifiers: Encounter type: initial encounter Involved ligament of knee: other ligament Laterality: right Qualified Code(s): S83.8X1A - Sprain of other specified parts of right knee, initial encounter Disposition: Home, Self-Care Condition on Discharge: Good Instructions: How to Use Crutches, How to Use a Knee Immobilizer, Ibuprofen Additional Instructions: Rest area when sitting and elevate Ice to area for 20 min every 2 hours to help with swelling and pain Ibuprofen as prescribed Elevate area to help with swelling and pain Use crutches to get around Follow up with your Family Doctor if no improvement or any worsening of symptoms Return if needed You may call back to the [facility] later this evening for the official reading of your xray Prescriptions: Ibuprofen [Ibuprofen 800mg Tablet] 800 mg PO TIDP PRN #20 tab PRN Reason: Moderate Pain Transmission Status: Received by [id number] Referrals: Shlelie Richmond PA [Primary Care Provider] - As needed Time of Disposition: 14:54 Medical Decision Making - Bennie Inquiry Pt receiving controlled substance: No Bennie was queried for this patient: No Vital Signs: 02/21/22 14:17 02/21/22 15:04 Temperature 98.6 F 98.2 F Temperature Source Oral Oral Pulse Rate 90 Pulse Rate [Left Radial] 87 Respiratory Rate 18 16 Blood Pressure 127/65 Blood Pressure [Right Arm] 141/96 H Blood Pressure Mean [Right Arm] 111 Blood Pressure Source [Right Arm] Automatic Cuff Blood Pressure Position [Right Arm] Sitting 02 Sat by Pulse Oximetry 100 Oxygen Delivery Method Room Air Room Air Orders (Tests/Meds): ED MEDICATIONS Discontinued Medications Generic Name Dose Route Start Last Admin Trade Name Freq PRN Reason Stop Dose Admin Ketorolac Tromethamine 60 mg 02/21/22 14:46 02/21/22 14:51 Ketorolac 60mg/2ml Vial IM 02/21/22 14:47 60 mg ONCE ONE Administration - Radiology Data #1 Image(s): Knee Image Reviewed: Yes I reviewed the patient's radiology image Preliminary Findings: No Fracture Seen [facility] [place] HPI - General Stated complaint: right knee pain Time Seen by Provider: 02/21/22 14:42 Mode of Arrival: Ambulatory Source of Information: Patient Limitations: No Limitations Description of Symptoms (Recalled from Triage Doc. by RN): c/o right knee locked up when he was getting out of the truck today HEENT Symptoms (Recalled from RN notes): No Resp Symptoms (Recalled from RN notes): No Skin Symptoms (Recalled from RN notes): No MS Symptoms (Recalled from RN notes): Yes Functional Status (Recalled from RN notes): na - History of Present Illness Provider Complaint: Patient states that he ws cleaning out his closet a couple days ago when he felt a pop in his right knee States that he has been walking on it ok and everything but today as he was getting out of the truck he felt another pop and feels like his right knee locked up and having pain ever since so they brought him in to get him checked out - Related Data Previous Rx's Medication Instructions Recorded levoFLOXacin [Levaquin 500mg 500 mg PO DAILY #7 tab 02/10/22 tab] metroNIDAZOLE [metroNIDAZOLE 500mg 500 mg PO TID #30 tab 02/10/22 Tablet] Ibuprofen [Ibuprofen 800mg 800 mg PO TIDP PRN #20 tab 02/21/22 Tablet] Allergies Allergy/AdvReac Type Severity Reaction Status Date / Time Penicillins [PENICILLINS] Allergy Mild Verified 01/07/22 02:17 - Worker's Comp Is this a Worker's Comp case?: No [facility] History - Hepatitis A Screen Attestation statement:: This patient has been screened for Hepatitis A risk factors. 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 - Social History Smoking Status: Cu
[2022-02-21 15:04] VITALS: BP 127/65; PULSE 90; RESP 16; TEMP 36.8; O2SAT 100
== END 2022-02-21 15:06 | disposition home or self-care (01) ==
PROVIDERS: Emergency Provider Nurse Practitioner; PCP Physician Assistant
DX: S83.8X1A Sprain of other specified parts of right knee, initial encounter (principal); X50.0XXA Overexertion from strenuous movement or load, initial encounter
CPT/HCPCS: 73562; 96372; 99212; G0463

== ENCOUNTER 2022-05-10 00:14 | Emergency (ER) | payer OTHER, SELFPAY ==
[2022-05-10 00:16] VITALS: BP 160/116; PULSE 68; RESP 18; TEMP 36.7; O2SAT 99; BMI 36.6
--- NOTE | 2022-05-10 00:20 | XR_ITS ---
PROCEDURE INFORMATION: Exam: XR Left Finger(s) Exam date and time: 05/10/2022 12:18 AM Age: 26 years old Clinical indication: Injury or trauma; Other: Power tool injury; Left; Patient HX: PT states hanging pictures with a drill and the bit punctured index finger near pip joint, entering on palmar surface of finger. C/O pain/swelling; Additional info: Puncture wound TECHNIQUE: Imaging protocol: Radiologic exam of the Left fingers. Views: Minimum 2 views. COMPARISON: CR XR FINGER LT MIN 2V 08/22/2019 3:11 PM FINDINGS: Bones/joints: There is no fracture or dislocation. Soft tissues: There is mild superficial soft tissue swelling of the proximal 2nd digit. No radiopaque foreign body or soft tissue gas. IMPRESSION: 1. No acute osseous abnormality. No fracture. 2. Mild superficial soft tissue swelling.
--- NOTE | 2022-05-10 00:23 | HMH.EDGENADL ---
ED Disposition Clinical Impression: Puncture wound of finger of left hand Qualifiers: Encounter type: initial encounter Qualified Code(s): S61.239A - Puncture wound without foreign body of unspecified finger without damage to nail, initial encounter Disposition: Home, Self-Care Condition on Discharge: Good Instructions: DI for Puncture Wound Additional Instructions: You have been evaluated for puncture wound to the left finger. There is no evidence of fracture on your x-rays. Please keep wound clean and dry for 24 hours. Okay to shower normally after that. Keep wound dressed. Follow-up with your primary care doctor for wound check. Return to the emergency department at once for any new or worsening symptoms, pain, redness, drainage, fever, signs of infection or any other concerns. Referrals: Shellie Richmond PA [Primary Care Provider] - Time of Disposition: 00:38 - Critical Care Critical Care Time: No Attestation: On , the high probability of a clinically significant, sudden or life threatening deterioration of the following system(s) required my full and direct attention, intervention and personal management. The time I documented below is in addition to time spent performing reported procedures but includes the following listed in this critical care notation. Medical Decision Making - Medical Records Medical records reviewed: Yes: I reviewed the patient's medical records. - Bennie Inquiry Pt receiving controlled substance: No Vital Signs: 05/10/22 00:16 05/10/22 00:38 Temperature 98.0 F 98.0 F Temperature Source Oral Pulse Rate 80 Pulse Rate [Right] 68 Respiratory Rate 18 18 Blood Pressure 133/96 H Blood Pressure [Right Arm] 160/116 H Blood Pressure Mean [Right Arm] 130 02 Sat by Pulse Oximetry 99 Oxygen Delivery Method Room Air Orders (Tests/Meds): ED MEDICATIONS Discontinued Medications Generic Name Dose Route Start Last Admin Trade Name Freq PRN Reason Stop Dose Admin Ibuprofen 600 mg 05/10/22 00:28 05/10/22 00:41 Ibuprofen 600 Mg Tablet PO 05/10/22 00:29 600 mg ONCE ONE Administration - Radiology Data #1 Image(s): Finger(s)/Thumb Image Reviewed: Yes I reviewed the patient's radiology results, Yes I have reviewed radiologist's interpretation Preliminary Findings: Normal/NAD Medical Decision Narrative: In summary this is a previously healthy [id number] male presenting to the emergency department with puncture wound to the palmar aspect of his left index finger, at the middle phalanx. Patient clinically stable on arrival. Vital signs within normal limits. Puncture wound is not over the joint space. However, patient has pain with finger motion. Will obtain x-rays Tetanus up-to-date. Patient given Ibuprofen. X-rays show no fracture. Injury is a puncture wound. It is not gaping, no laceration amenable to repair. Copiously irrigated. Steri-Strip applied. Patient counseled on wound care management. Recommended follow-up with PCP for wound check. Given return precautions. Stable for discharge. General Adult HPI - General Stated complaint: AO 05/09/22 2310 ran drill bit thru left index fin Time Seen by Provider: 05/10/22 00:23 Mode of Arrival: Ambulatory Source of Information: Patient Limitations: No Limitations - History of Present Illness HPI narrative: 26-year-old male presenting to the emergency department with injury to the left index finger. Incident happened approximately 1 hour prior to arrival. He was hanging pictures when he accidentally drilled a bit into his left index finger. Injury is on the pad of the finger. Pain was initially sharp. Now dull and throbbing. Worse with motion. He has pain with finger flexion. No numbness, weakness, tingling in the tip of the finger. No other injuries. No medications prior to arrival. Most recent tetanus was 1 year ago - Related Data Previous Rx's Medication Instruc
[2022-05-10 00:38] VITALS: BP 133/96; PULSE 80; RESP 18; TEMP 36.7; O2SAT 98
--- NOTE | 2022-05-10 00:51 | PC.NURSE ---
wound cleaned with hibiclens and sterile water, flushed puncture wound with syringe.
== END 2022-05-10 01:22 | disposition home or self-care (01) ==
LOC: ER 00:40
PROVIDERS: Emergency Provider Emergency Medicine; PCP Physician Assistant
DX: S61.231A Puncture wound without foreign body of left index finger without damage to nail, initial encounter (principal); F17.290 Nicotine dependence, other tobacco product, uncomplicated; Z79.1 Long term (current) use of non-steroidal anti-inflammatories (NSAID)
CPT/HCPCS: 73140; 99283

== ENCOUNTER 2022-07-10 22:28 | Emergency (ER) | payer OTHER, SELFPAY ==
[2022-07-10 22:30] VITALS: BP 134/72; PULSE 84; RESP 18; TEMP 37; O2SAT 99; BMI 36.6
[2022-07-10 22:38] VITALS: BMI 36.6
--- NOTE | 2022-07-10 22:39 | XR_ITS ---
PROCEDURE INFORMATION: Exam: XR Lumbosacral Spine Exam date and time: 07/10/2022 10:39 PM Age: 26 years old Clinical indication: Injury or trauma; Blunt trauma (contusions or hematomas); Patient HX: Fall from ladder TECHNIQUE: Imaging protocol: Radiologic exam of the lumbosacral spine. Views: 2 or 3 views. COMPARISON: XR SACRUM COCCYX MIN 2V 01/24/2022 11:38 PM FINDINGS: Bones/joints: Normal. No acute fracture. Normal alignment. Soft tissues: Unremarkable. IMPRESSION: No acute findings.
--- NOTE | 2022-07-10 22:39 | XR_ITS ---
PROCEDURE INFORMATION: Exam: XR Right Foot Exam date and time: 07/10/2022 10:40 PM Age: 26 years old Clinical indication: Pain; Foot and heel; Right; Patient HX: PT states fall from a ladder TECHNIQUE: Imaging protocol: Radiologic exam of the Right foot. Views: 3 or more views. COMPARISON: CR XR KNEE RT 3V 02/21/2022 1:35 PM FINDINGS: Bones/joints: Normal. Soft tissues: Normal. IMPRESSION: No acute findings.
--- NOTE | 2022-07-10 22:39 | XR_ITS ---
PROCEDURE INFORMATION: Exam: XR Pelvis Exam date and time: 07/10/2022 10:38 PM Age: 26 years old Clinical indication: Injury or trauma; Blunt trauma (contusions or hematomas); Does not apply; Pelvic region; Patient HX: Fall from ladder TECHNIQUE: Imaging protocol: Radiologic exam of the pelvis. Views: 1 or 2 view. COMPARISON: CT ABDOMEN PELVIS WO CON 02/10/2022 12:35 AM FINDINGS: Bones/joints: Unremarkable. No acute fracture. Soft tissues: Unremarkable. IMPRESSION: No acute findings.
--- NOTE | 2022-07-10 22:39 | XR_ITS ---
PROCEDURE INFORMATION: Exam: XR Right Calcaneus Exam date and time: 07/10/2022 10:43 PM Age: 26 years old Clinical indication: Right; Patient HX: Fall from ladder, heel pain TECHNIQUE: Imaging protocol: Radiologic exam of the Right calcaneus. Views: 2 or more views. COMPARISON: CR XR FOOT RT MIN 3V 07/10/2022 10:40 PM FINDINGS: Bones/joints: Normal. Soft tissues: Normal. IMPRESSION: No acute findings.
--- NOTE | 2022-07-10 22:42 | XR_ITS ---
PROCEDURE INFORMATION: Exam: XR Chest Exam date and time: 07/10/2022 10:51 PM Age: 26 years old Clinical indication: Injury or trauma; Blunt trauma (contusions or hematomas); Patient HX: Fall from ladder TECHNIQUE: Imaging protocol: Radiologic exam of the chest. Views: 2 views. COMPARISON: CR XR CHEST 2V 01/07/2022 2:22 AM FINDINGS: Lungs: Unremarkable. No consolidation. Pleural spaces: Unremarkable. No pleural effusion. No pneumothorax. Heart/Mediastinum: Unremarkable. No cardiomegaly. Bones/joints: Unremarkable. IMPRESSION: No acute findings.
[2022-07-10 22:48] LABS: POC Glucose,Bedside 112 (70-110)
[2022-07-10 22:52] VITALS: BP 134/72; PULSE 82; RESP 17; TEMP 37; O2SAT 98
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
[2022-07-10 23:31] VITALS: BMI 36.6
[2022-07-10 23:44] VITALS: BP 123/67; PULSE 74; RESP 18; TEMP 36.9; O2SAT 98
== END 2022-07-10 23:47 | disposition home or self-care (01) ==
PROVIDERS: Emergency Provider Emergency Medicine; PCP Physician Assistant
DX: S93.691A Other sprain of right foot, initial encounter (principal); F17.290 Nicotine dependence, other tobacco product, uncomplicated; Z79.1 Long term (current) use of non-steroidal anti-inflammatories (NSAID); Z79.899 Other long term (current) drug therapy; Z88.0 Allergy status to penicillin; W11.XXXA Fall on and from ladder, initial encounter
CPT/HCPCS: 71046; 72100; 72170; 73630; 73650; 82962; 99285

== ENCOUNTER → 2022-07-26 15:27 | Outpatient (CLI) | payer OTHER, SELFPAY | PROVIDERS: PCP Physician Assistant; Visit Provider Physician Assistant | DX: N39.0 Urinary tract infection, site not specified (principal) ==

== ENCOUNTER 2022-07-26 15:34 | Outpatient (RCR) | payer OTHER, SELFPAY | END 2022-07-26 16:30 | disposition home or self-care (01) | LOC: PT 15:34 | PROVIDERS: Visit Provider Physician Assistant | DX: M79.671 Pain in right foot (principal) | CPT/HCPCS: 97760 ==

== ENCOUNTER → 2022-07-26 15:50 | Outpatient (CLI) | payer OTHER, SELFPAY ==
--- NOTE | 2022-07-26 15:53 | XR_ITS ---
FINAL REPORT CLINICAL HISTORY: right heel pain COMPARISON: July 10, 2022 FINDINGS: RIGHT FOOT SERIES 3 views of the right foot were obtained. There is no acute fracture or dislocation. There is a small plantar calcaneal spur. Visualized joint spaces are normally aligned. Soft tissues are unremarkable. IMPRESSION: Small plantar calcaneal spur. Reviewed, Interpreted and Dictated by Armando Cristobal III, MD Transcribed by Keegan Bautista Authenticated and [facility]
--- NOTE | 2022-07-26 15:53 | XR_ITS ---
FINAL REPORT CLINICAL HISTORY: right heel pain FINDINGS: RIGHT CALCANEUS 2 views were obtained. There is no acute fracture. There is a small plantar calcaneal spur. The visualized joint spaces are intact. There is no soft tissue abnormality. IMPRESSION: Small plantar calcaneal spur. Reviewed, Interpreted and Dictated by Armando Cristobal III, MD Transcribed by Keegan Bautista Authenticated and [facility]
[2022-07-30 22:11] LABS: Neisseria gonorrhoeae, NAA Negative (Negative)
== END ==
PROVIDERS: PCP Physician Assistant; Visit Provider Physician Assistant
DX: M79.671 Pain in right foot (principal); R30.0 Dysuria
CPT/HCPCS: 73630; 73650; 87086; 87491; 87591

== ENCOUNTER → 2022-08-10 14:48 | Outpatient (CLI) | payer OTHER, SELFPAY ==
--- NOTE | 2022-08-10 14:48 | MR_ITS ---
FINAL REPORT CLINICAL HISTORY: right heel pain. fell off roof of house and landed on feet 3-4 weeks ago. lateral sided foot pain. swelling in foot. FINDINGS: Multiplanar MR imaging of the right foot was performed without contrast. The Achilles tendon is intact. The plantar fascia is intact. There is an os trigonum with mild edema that may represent os trigonum syndrome as seen on images 16 and 17 of series 9. No fracture is noted. The flexor and extensor tendons are intact. The musculature is intact. No soft tissue mass or cyst is identified. 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 Reviewed, Interpreted and Dictated by Kevin Bauer MD Transcribed by Keegan Bautista Authenticated and [facility]
== END ==
PROVIDERS: PCP Physician Assistant; Visit Provider Physician Assistant
DX: M79.671 Pain in right foot (principal)
CPT/HCPCS: 73718

== ENCOUNTER 2022-09-06 08:39 | Emergency (ER) | payer OTHER, SELFPAY ==
[2022-09-06 08:40] VITALS: BP 128/86; PULSE 82; RESP 19; TEMP 36.6; O2SAT 98; BMI 37.7
--- NOTE | 2022-09-06 09:35 | EXP.UTC ---
Discharge Plan Disposition Patient Disposition: Home, Self-Care Condition: Good Prescriptions Prescriptions: New erythromycin 5 mg/gram (0.5 %) ointment 0.5 inch ophthalmic (eye) QID 7 Days Qty: 3.5 0RF Referrals Follow up/Referrals: Shellie Richmond PA [Primary Care Provider] - See instructions Activity Restrictions/Add. Instructions Additional Instructions/Restrictions: Use the eye drops as directed. Follow up with your regular doctor. Follow up at the [facility] for any problems also. GO TO THE ER FOR ANY WORSENING SYMPTOMS OR CONCERNS Clinical Impressions Clinical Impression: Abrasion of cornea, left Stand Alone Forms Stand Alone Forms: Work/School Release Discharge ED Provider: Reynaldo Styles [facility] General Stated complaint: RT eye possible foreign object AO 09/05@work Mode of Arrival: Ambulatory Source of Information: Patient Limitations: No Limitations Time Seen by Provider: 09/06/22 09:14 Description of Symptoms (Recalled from Triage Doc. by RN): PATIENT REPORTS SOMETHING IN right EYE SINCE YESTERDAY HEENT Symptoms (Recalled from RN notes): No Resp Symptoms (Recalled from RN notes): No Skin Symptoms (Recalled from RN notes): No MS Symptoms (Recalled from RN notes): No Functional Status (Recalled from RN notes): WNL History of Present Illness Provider Complaint: He was finishing concrete yesterday when he felt something go in his right eye. He immediately rinsed it out very well, but he has had right eye irritation since then. He denies any change in his vision. He denies any other complaints. Related Data Previous Rx's Medication Instructions Recorded erythromycin 5 mg/gram (0.5 %) eye 0.5 inch ophthalmic (eye) QID 7 09/06/22 ointment days #3.5 grams Allergies Allergy/AdvReac Type Severity Reaction Status Date / Time Penicillins [PENICILLINS] Allergy Mild Verified 08/20/22 13:52 Worker's Comp Is this a Worker's Comp case?: No [facility] Disclaimer: The information contained in this section may have been updated after the patient was seen, as this information can be updated by other users. Medical History Hepatosplenomegaly Surgical History History of appendectomy Social History Smoking Status: Light tobacco smoker tobacco type: cigarettes packs per day: 1 and smokeless tobacco alcohol intake: never substance use type: denies use current occupational status: employed Travel in the last 8 weeks: None ROS Obtained: Yes All systems reviewed & no additional complaints except as documented Constitutional Constitutional: Denies chills and Denies fever(s) Eyes Eyes: Reports as per HPI ENT Ears, Nose, Mouth, and Throat: Denies dizziness, Denies otalgia and Denies sore throat Cardiovascular Cardiovascular: Denies chest pain Respiratory Respiratory: Denies shortness of breath, Denies chest congestion, Denies cough, Denies stridor and Denies wheezing Gastrointestinal Gastrointestingal: Denies nausea or vomiting Musculoskeletal Musculoskeletal: Reports system reviewed and no additional complaints, except as documented and Denies arthralgias Integumentary/Breasts Skin/Breast: Denies rash Neurologic Neurologic: Denies dizziness and Denies paresthesias Allergic/Immunologic Allergic/Immunologic: Denies wheezing Physical Exam General General appearance: alert and in no apparent distress Head Head exam: atraumatic, normocephalic and normal inspection Eye Eye exam: Present PERRL and EOMI Expanded Eye Exam Eyelids: left: normal inspection and right: erythema Pupils: Left: size (3), Right: size (3) and Bilateral: regular, round and reactive Sclera/Conjunctival: left: normal inspection and right: injection and exudate ENT ENT exam: Present normal exam, normal oropharynx, mucous membranes
[2022-09-06 09:44] VITALS: BP 128/86; PULSE 82; RESP 19; TEMP 36.6; O2SAT 98
== END 2022-09-06 09:46 | disposition home or self-care (01) ==
PROVIDERS: Emergency Provider Nurse Practitioner Family; PCP Physician Assistant
DX: S05.02XA Injury of conjunctiva and corneal abrasion without foreign body, left eye, initial encounter (principal)
CPT/HCPCS: 65220; 99212; G0463

== ENCOUNTER 2022-09-07 08:28 | Emergency (ER) | payer OTHER, SELFPAY ==
[2022-09-07 08:29] VITALS: BP 140/91; PULSE 84; RESP 18; TEMP 36.8; O2SAT 99; BMI 35.8
--- NOTE | 2022-09-07 08:41 | HMH.EDGENADL ---
Discharge Plan Disposition Patient Disposition: Home, Self-Care Condition: Good Prescriptions Prescriptions: New sulfamethoxazole-trimethoprim 800-160 mg tablet 1 tab PO Q12H 7 Days Qty: 14 0RF No Action erythromycin 5 mg/gram (0.5 %) ointment 0.5 inch ophthalmic (eye) QID 7 Days Qty: 3.5 0RF Referrals Follow up/Referrals: Shellie Richmond PA [Primary Care Provider] - See instructions Activity Restrictions/Add. Instructions Additional Instructions/Restrictions: At this time was felt you are safe to be discharged home. If new or worsening symptoms please do not hesitate to return to the emergency department. Please take antibiotics as prescribed. Please follow-up with your family doctor in 1 week to assess for suture removal. Clinical Impressions Clinical Impression: Finger laceration Instructions Patient Instructions: DI for Laceration Repair Discharge ED Provider: Jay Sahu General Adult HPI General Chief complaint: Wound/Laceration Stated complaint: AO cut R pointer finger Time Seen by Provider: 09/07/22 08:41 History of Present Illness HPI narrative: Patient is a 26-year-old male with no pertinent past medical history, right-handed who presents to the emergency department for evaluation of a laceration. Patient was cleaning a deer carcass when he sliced his left medial index finger with a fillet knife. Last Tdap greater than 5 years. No other acute complaints at this time. Related Data Previous Rx's Medication Instructions Recorded erythromycin 5 mg/gram (0.5 %) eye 0.5 inch ophthalmic (eye) QID 7 09/06/22 ointment days #3.5 grams sulfamethoxazole 800 1 tab PO Q12H 7 days #14 tabs 09/07/22 mg-trimethoprim 160 mg tablet Allergies Allergy/AdvReac Type Severity Reaction Status Date / Time Penicillins [PENICILLINS] Allergy Mild Verified 08/20/22 13:52 [facility] Disclaimer: The information contained in this section may have been updated after the patient was seen, as this information can be updated by other users. Medical History Hepatosplenomegaly Surgical History History of appendectomy Social History Smoking Status: Current every day smoker tobacco type: cigarettes packs per day: 1 and smokeless tobacco alcohol intake: never substance use type: denies use current occupational status: employed Travel in the last 8 weeks: None ROS Obtained: Yes Systems reviewed as appropriate & no additional complaints except as documented Physical Exam General General appearance: alert and in no apparent distress Head Head exam: atraumatic and normocephalic Eye Eye exam: Present PERRL and EOMI ENT ENT exam: Present mucous membranes moist Neck Neck exam: Present normal inspection Chest Chest inspection: Present normal inspection and symmetric chest wall rise Respiratory Respiratory exam: Present normal lung sounds bilaterally; Absent respiratory distress Cardiovascular Cardiovascular exam: Present regular rate and normal rhythm Abdominal Exam Abdominal exam: Present soft Extremities Exam Extremities exam: Present full ROM, normal capillary refill and other (Laceration right radial dorsal index finger along the lateral margin of the nailbed and fingertip. Hemostatic with pressure. Sensation intact, range of motion intact.) Neurological Exam Neurological exam: Present alert Psychiatric Psychiatric exam: Present normal affect Skin Skin exam: Present warm and dry Medical Decision Making Bennie Inquiry Pt receiving controlled substance: No Vital Signs: 09/07/22 08:29 09/07/22 09:01 Temperature 98.3 F Temperature Source Oral Pulse Rate 81 Pulse Rate [Left Radial] 84 Respiratory Rate 18 20 Blood Pressure 136/85 Blood Pressure [Left Arm] 140/91 H Blood Pressure Mean 97 Blood Pressure
[2022-09-07 09:01] VITALS: BP 136/85; PULSE 81; RESP 20; O2SAT 97
[2022-09-07 10:48] VITALS: BP 122/74; PULSE 74; RESP 16; TEMP 36.8; O2SAT 98
== END 2022-09-07 10:50 | disposition home or self-care (01) ==
PROVIDERS: Emergency Provider Emergency Medicine; PCP Physician Assistant
DX: S61.210A Laceration without foreign body of right index finger without damage to nail, initial encounter (principal); S61.211A Laceration without foreign body of left index finger without damage to nail, initial encounter; F17.290 Nicotine dependence, other tobacco product, uncomplicated; Z88.0 Allergy status to penicillin; W26.0XXA Contact with knife, initial encounter
CPT/HCPCS: 12001; 99283

== ENCOUNTER 2022-11-02 22:27 | Emergency (ER) | payer OTHER, SELFPAY ==
[2022-11-02 22:36] VITALS: BP 135/95; PULSE 89; RESP 18; TEMP 36.6; O2SAT 98; BMI 37.0
[2022-11-02 22:42] LABS: Coronavirus 19, PCR Not Detected (NotDetected); Influenza A, PCR Not Detected (NotDetected); Influenza B, PCR Not Detected (NotDetected)
[2022-11-02 22:52] LABS: Strep Scrn Group A (Rapid) Negative (Negative)
[2022-11-02 23:00] VITALS: BP 144/94; PULSE 95; O2SAT 98
--- NOTE | 2022-11-02 23:07 | HMH.EDGENADL ---
Discharge Plan Disposition Patient Disposition: Home, Self-Care Condition: Fair Referrals Follow up/Referrals: Shellie Richmond PA [Primary Care Provider] - See instructions Activity Restrictions/Add. Instructions Additional Instructions/Restrictions: Your flu and COVID swabs were negative. We will call you if your strep culture returns positive. Clinical Impressions Clinical Impression: Acute viral pharyngitis Stand Alone Forms Stand Alone Forms: Work/School Release Instructions Patient Instructions: DI for Viral Pharyngitis Discharge ED Provider: Quentin Holly General Adult HPI General Chief complaint: Upper Respiratory Infection Stated complaint: sore throat Time Seen by Provider: 11/02/22 22:45 Mode of Arrival: Ambulatory Source of Information: Patient Limitations: No Limitations Description of Symptoms (Recalled from ER Triage Doc. by RN): Pt c/o sore throat for prior two days. States he has not seen or called his pcp. Does report that his children are being treated for strep throat. Denies fever, cough or other symptoms. History of Present Illness HPI narrative: Patient is a 27-year-old male with no pertinent past medical history who presents with sore throat. He says that multiple children in his house for an hour being treated for strep throat. He says that his symptoms started about 2 days ago. He says they are getting worse. He says that it hurts to swallow. Denies any ear pain. Denies any shortness of breath. Denies any chest pain. Denies any nausea or vomiting. Related Data Allergies Allergy/AdvReac Type Severity Reaction Status Date / Time Penicillins [PENICILLINS] Allergy Mild Verified 09/26/22 15:17 [facility] Disclaimer: The information contained in this section may have been updated after the patient was seen, as this information can be updated by other users. 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 Surgical History History of appendectomy Social History Smoking Status: Never smoker alcohol intake: never substance use type: denies use current occupational status: employed Travel in the last 8 weeks: None ROS Obtained: Yes All systems reviewed & no additional complaints except as documented Physical Exam General General appearance: alert and in no apparent distress Head Head exam: atraumatic, normocephalic and normal inspection Eye Eye exam: Present normal appearance, PERRL and EOMI ENT ENT exam: Present normal exam, normal oropharynx, mucous membranes moist and normal external ear exam Expanded ENT Exam Throat exam: Present tonsillar erythema; Absent tonsillar exudate, R peritonsillar mass or L peritonsillar mass Neck Neck exam: Present normal inspection, full ROM and trachea midline; Absent meningismus or lymphadenopathy Chest Chest inspection: Present normal inspection and symmetric chest wall rise; Absent tenderness Respiratory Respiratory exam: Present normal lung sounds bilaterally; Absent respiratory distress Cardiovascular Cardiovascular exam: Present regular rate and normal rhythm Abdominal Exam Abdominal exam: Present soft; Absent distention, tenderness or guarding Extremities Exam Extremities exam: Present normal inspection, full ROM and normal capillary refill; Absent calf tenderness Back Exam Back exam: Present normal inspection; Absent tenderness Neurological Exam Neurological exam: Present alert and oriented X3 Psychiatric Psychiatric exam: Present normal affect and normal mood Skin Skin exam: Present warm, dry, intact and normal color Lymphatic Lymphatic Findings: no adenopathy Medical Decision Making Medical Records Medical records reviewed: Yes I reviewed the patient's medical records. Bennie Inquiry Pt receiving controlled substance: N
[2022-11-02 23:12] VITALS: BP 144/94; PULSE 85; RESP 17; TEMP 36.8; O2SAT 98
== END 2022-11-02 23:15 | disposition home or self-care (01) ==
PROVIDERS: Emergency Provider Student in an Organized Health Care Education/Training Program; PCP Physician Assistant
DX: J02.8 Acute pharyngitis due to other specified organisms (principal); R16.2 Hepatomegaly with splenomegaly, not elsewhere classified; Z90.49 Acquired absence of other specified parts of digestive tract; Z20.822 Contact with and (suspected) exposure to COVID-19
CPT/HCPCS: 87430; 99283; C9803; U0003; U0005

== ENCOUNTER 2023-05-08 22:01 | Emergency (ER) | payer OTHER, SELFPAY ==
[2023-05-08 22:02] VITALS: BP 124/70; PULSE 99; RESP 18; TEMP 37.2; O2SAT 99; BMI 35.9
[2023-05-08 22:36] LABS: Influenza A, PCR Not Detected (NotDetected); Influenza B, PCR Not Detected (NotDetected)
[2023-05-08 22:48] LABS: Strep Scrn Group A (Rapid) Negative (Negative)
--- NOTE | 2023-05-08 22:59 | HMH.EDGENADL ---
Discharge Plan Disposition Patient Disposition: Home, Self-Care Condition: Good Prescriptions Prescriptions: New wqlyxdsfyjrzfa-gpxjaszaaiod-UH 2-5-10 mg/5 mL liquid 10 ml PO Q4-6H PRN (Reason: allergy symptoms) 5 Days Qty: 473 0RF No Action omeprazole 40 mg capsule,delayed release(DR/EC) 40 mg PO DAILY 90 Days Qty: 90 0RF Rx Instructions: swallow whole; do not crush, chew, dissolve, cut, break famotidine 40 mg tablet 40 mg PO DAILY Qty: 90 0RF Referrals Follow up/Referrals: Shellie Richmond PA [Primary Care Provider] - See instructions Activity Restrictions/Add. Instructions Additional Instructions/Restrictions: Please follow-up with your primary care provider. Please take Bromfed as prescribed for cough. Please take Tylenol ibuprofen as needed for pain. Clinical Impressions Clinical Impression: Upper respiratory infection Discharge ED Provider: Ronn Marie General Adult HPI General Chief complaint: Upper Respiratory Infection Stated complaint: sore throat , cough Time Seen by Provider: 05/08/23 22:31 Mode of Arrival: Ambulatory Source of Information: Patient Limitations: No Limitations Description of Symptoms (Recalled from ER Triage Doc. by RN): pt reports sore throat and what he beleives that he has a sinus infection History of Present Illness HPI narrative: 27-year-old male reportedly previously healthy presents with sinus congestion and postnasal drip with associated cough. Reports that he was recently tested for COVID and strep. Reports that he feels feverish and has some sinus pain. Denies any other symptoms. Specifically denies chest pain or shortness of breath. Cough productive of phlegm. Related Data Previous Rx's Medication Instructions Recorded famotidine 40 mg tablet 40 mg PO DAILY #90 tabs 12/17/22 omeprazole 40 mg capsule,delayed 40 mg PO DAILY 90 days #90 caps 12/17/22 release njpbbiiixvwiubv-znogxuqcipaop-VM 2 10 ml PO Q4-6H PRN allergy 05/08/23 mg-5 mg-10 mg/5 mL oral liquid symptoms 5 days #473 mL Allergies Allergy/AdvReac Type Severity Reaction Status Date / Time Penicillins [PENICILLINS] Allergy Mild Verified 12/17/22 15:00 [facility] Disclaimer: The information contained in this section may have been updated after the patient was seen, as this information can be updated by other users. 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 Surgical History History of appendectomy Social History Smoking Status: Never smoker alcohol intake: never substance use type: denies use current occupational status: employed Travel in the last 8 weeks: None ROS Obtained: Yes All systems reviewed & no additional complaints except as documented Physical Exam General General appearance: alert and in no apparent distress Head Head exam: atraumatic and normocephalic Eye Eye exam: Present normal appearance, PERRL and EOMI ENT ENT exam: Present normal oropharynx (No posterior oropharyngeal erythema, sinus congestion noted) and normal external ear exam Neck Neck exam: Present normal inspection and full ROM Chest Chest inspection: Present normal inspection and symmetric chest wall rise; Absent tenderness Respiratory Respiratory exam: Present normal lung sounds bilaterally; Absent respiratory distress Cardiovascular Cardiovascular exam: Present regular rate and normal rhythm Abdominal Exam Abdominal exam: Present soft; Absent distention, tenderness or guarding Extremities Exam Extremities exam: Present normal inspection; Absent edema or joint swelling Back Exam Back exam: Present normal inspection; Absent tenderness Neurological Exam Neurological exam: Present alert and oriented X3; Absent motor sensory deficit Psychiatric Psychiatric exam: Present normal affect a
[2023-05-08 23:02] LABS: Coronavirus 19, PCR Detected (NotDetected)
[2023-05-08 23:06] VITALS: BP 145/85; PULSE 87; RESP 16; TEMP 36.8
== END 2023-05-08 23:10 | disposition home or self-care (01) ==
PROVIDERS: Emergency Provider Emergency Medicine; PCP Physician Assistant
DX: J06.9 Acute upper respiratory infection, unspecified (principal)
CPT/HCPCS: 87430; 87636; 99283

== ENCOUNTER 2023-09-17 05:10 | Emergency (ER) | payer OTHER, SELFPAY ==
--- NOTE | 2023-09-17 05:12 | HMH.EDGENADL ---
Discharge Plan Disposition Patient Disposition: Home, Self-Care Chief Complaint: Upper Respiratory Infection Prescriptions Prescriptions: No Action cephalexin 500 mg capsule 500 mg PO Q12H 10 Days Qty: 20 0RF prednisone 20 mg tablet 20 mg PO BID Qty: 10 0RF Rx Instructions: administer with food or milk Referrals Follow up/Referrals: Shellie Richmond PA [Primary Care Provider] - See instructions Activity Restrictions/Add. Instructions Additional Instructions/Restrictions: Please follow-up with your primary care provider. Please return to the emergency department if you develop any new or worsening symptoms or become concerned for your health. Clinical Impressions Clinical Impression: Acute sore throat Discharge ED Provider: Ronn Marie General Adult HPI General Chief complaint: Upper Respiratory Infection Stated complaint: sore throat Time Seen by Provider: 09/17/23 05:12 History of Present Illness HPI narrative: 27-year-old male presents with sore throat. He reports focal tenderness on the left mid neck. He reports some pain with swallowing. He denies any recent fever, cough, congestion or other symptoms. Denies any history of recent weight loss, weight gain, lymphadenopathy, fevers chills tachycardia etc. Related Data Previous Rx's Medication Instructions Recorded cephalexin 500 mg capsule 500 mg PO Q12H 10 days #20 caps 08/07/23 prednisone 20 mg tablet 20 mg PO BID #10 tabs 08/07/23 Allergies Allergy/AdvReac Type Severity Reaction Status Date / Time Penicillins [PENICILLINS] Allergy Mild Verified 08/07/23 15:16 [facility] Disclaimer: The information contained in this section may have been updated after the patient was seen, as this information can be updated by other users. 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 Surgical History History of appendectomy Social History Smoking Status: Unknown if ever smoked alcohol intake: never substance use type: denies use current occupational status: employed Travel in the last 8 weeks: None ROS Obtained: Yes All systems reviewed & no additional complaints except as documented Physical Exam General General appearance: alert and in no apparent distress Head Head exam: atraumatic and normocephalic Eye Eye exam: Present normal appearance, PERRL and EOMI ENT ENT exam: Present normal oropharynx (Mild posterior oropharyngeal erythema), mucous membranes moist and normal external ear exam Neck Neck exam: Present full ROM and tenderness (Tenderness in the left anterior lateral mid neck over the area of the thyroid) Chest Chest inspection: Present normal inspection and symmetric chest wall rise; Absent tenderness Respiratory Respiratory exam: Present normal lung sounds bilaterally; Absent respiratory distress Cardiovascular Cardiovascular exam: Present regular rate and normal rhythm Abdominal Exam Abdominal exam: Present soft; Absent distention, tenderness or guarding Extremities Exam Extremities exam: Present normal inspection; Absent edema or joint swelling Back Exam Back exam: Present normal inspection; Absent tenderness Neurological Exam Neurological exam: Present alert and oriented X3; Absent motor sensory deficit Psychiatric Psychiatric exam: Present normal affect and normal mood Skin Skin exam: Present warm, dry and normal color Lymphatic Lymphatic Findings: no adenopathy Medical Decision Making Medical Records Medical records reviewed: Yes I reviewed the patient's medical records. Bennie Inquiry Pt receiving controlled substance: No Bennie was queried for this patient: No Vital Signs: 09/17/23 05:19 Temperature 98.2 F Temperature Source Oral Pulse Rate [Right Brachial] 65 Respiratory Rate 14 Blood Pressure [
[2023-09-17 05:19] VITALS: BP 138/96; PULSE 65; RESP 14; TEMP 36.8; O2SAT 96; BMI 36.6
[2023-09-17 05:30] LABS: Coronavirus 19, PCR Not Detected (NotDetected); Influenza A, PCR Not Detected (NotDetected); Influenza B, PCR Not Detected (NotDetected)
[2023-09-17 05:44] LABS: Strep Scrn Group A (Rapid) Negative (Negative)
[2023-09-17 05:45] LABS: Basophils # 0.1 K/mm3 (0-0.2); Basophils % 0.6 % (0.1-2.0); Eosinophils # 0.3 K/mm3 (0.0-0.4); Eosinophils % 2.9 % (0.1-12.0); Hemoglobin 16.6 g/dL (14.1-18.0); Lymphocytes # 2.4 K/mm3 (0.7-4.5); Lymphocytes % 26.9 % (10-50); Mean Corpuscular HGB Conc 34.6 g/dL (31.8-35.4); Mean Corpuscular Hemoglobin 28.3 pg (27.0-31.2); Mean Corpuscular Volume 81.6 fl (80-94); Monocytes # 0.5 K/mm3 (0.1-1.0); Monocytes % 5.8 % (1.7-9.3); Neutrophils # 5.7 K/mm3 (1.8-7.8); Neutrophils % 63.8 % (37.0-80.0); Platelet Count 206 K/mm3 (142-424); Red Blood Count 5.89 M/mm3 (4.60-6.20); Red Cell Distribution Width 13.9 % (11.5-17.5)
[2023-09-17 05:51] LABS: Chloride 104 mmol/L (98-107); Sodium 141 mmol/L (136-145)
[2023-09-17 05:52] LABS: Potassium 3.9 mmoL/L (3.5-5.1)
[2023-09-17 05:54] LABS: Alanine Aminotransferase 66 U/L (12-78); Alkaline Phosphatase 76 U/L (38-126); Aspartate Amino Transferase 50 U/L (17-59); Bilirubin,Total 0.5 mg/dl (0.2-1.3); Blood Urea Nitrogen 18 mg/dl (9-20); Creatinine Clearance Estimated 225 mL/min (50-200); Estimated Glomerular Filt Rate 101 ml/min (>60); GFR (African American) 122 ML/MIN (>60)
[2023-09-17 05:55] LABS: Albumin Level 4.5 g/dl (3.5-5.0); Albumin/Globulin Ratio 1.3 (1.1-1.8); Anion Gap 15.9 mEq/L (5-15); Calcium 8.8 mg/dl (8.4-10.2); Carbon Dioxide 25 mmol/L (22.0-30.0); Globulin 3.6 g/dL (1.3-3.2); Glucose 113 mg/dl (74-100); Total Protein,Serum 8.1 g/dl (6.3-8.2)
[2023-09-17 06:12] LABS: T4 (Thyroxine) 10.2 ug/dl (5.53-11.0)
[2023-09-17 06:32] VITALS: BP 129/71; PULSE 73; RESP 15; TEMP 36.7; O2SAT 98
== END 2023-09-17 06:45 | disposition home or self-care (01) ==
PROVIDERS: Emergency Provider Emergency Medicine; PCP Physician Assistant
DX: J02.9 Acute pharyngitis, unspecified (principal); R13.10 Dysphagia, unspecified
CPT/HCPCS: 80053; 84436; 84443; 85025; 87430; 87636; 99285

== ENCOUNTER 2023-11-08 23:11 | Emergency (ER) | payer OTHER, SELFPAY ==
--- NOTE | 2023-11-08 23:09 | ECG_ITS ---
APPROVED REPORT Exam: Resting ECG HR:91 bpm ECG Measurements Heart Rate 91 AXES CO 164 P 50 QRSd 102 QRS 49 QT 330 T 13 QTc 379 Conclusion SINUS RHYTHM NORMAL ECG UNCONFIRMED REPORT Electronically signed by : Gera Carbajal MD 11/09/2023 08:11:22
[2023-11-08 23:11] VITALS: BP 148/95; PULSE 86; RESP 18; TEMP 36.8; O2SAT 98; BMI 36.7
--- NOTE | 2023-11-08 23:17 | XR_ITS ---
PROCEDURE INFORMATION: Exam: XR Chest Exam date and time: 11/08/2023 11:23 PM Age: 28 years old Clinical indication: Chest wall pain; Additional info: Chest pain TECHNIQUE: Imaging protocol: Radiologic exam of the chest. Views: 1 view. COMPARISON: CR XR CHEST 2V 07/10/2022 10:51 PM FINDINGS: Lungs: Unremarkable. No consolidation. Pleural spaces: Unremarkable. No pleural effusion. No pneumothorax. Heart/Mediastinum: Unremarkable. No cardiomegaly. Bones/joints: Unremarkable. IMPRESSION: No acute findings.
--- NOTE | 2023-11-08 23:18 | XR_ITS ---
PROCEDURE INFORMATION: Exam: XR Abdomen Exam date and time: 11/08/2023 11:23 PM Age: 28 years old Clinical indication: Abdominal pain; Generalized; Additional info: Abd pain TECHNIQUE: Imaging protocol: Radiologic exam of the abdomen. Views: Frontal supine view of the abdomen. 1 View. COMPARISON: CT ABDOMEN PELVIS WO CON 02/10/2022 12:35 AM FINDINGS: Gastrointestinal tract: Normal. No bowel dilation. Bones/joints: Unremarkable. IMPRESSION: No acute findings.
--- NOTE | 2023-11-08 23:19 | HMH.EDGENADL ---
Discharge Plan Disposition Patient Disposition: Home, Self-Care Prescriptions Prescriptions: No Action cephalexin 500 mg capsule 500 mg PO Q12H 10 Days Qty: 20 0RF prednisone 20 mg tablet 20 mg PO BID Qty: 10 0RF Rx Instructions: administer with food or milk Activity Restrictions/Add. Instructions Additional Instructions/Restrictions: Please follow-up with your primary care provider. Please return to the emergency department if you develop any new or worsening symptoms or become concerned for your health. Clinical Impressions Clinical Impression: Microscopic hematuria Chest pain Qualifiers: Chest pain type: unspecified Qualified Code(s): R07.9 - Chest pain, unspecified Abdominal pain Qualifiers: Abdominal location: left lower quadrant Qualified Code(s): R10.32 - Left lower quadrant pain Back pain Qualifiers: Back pain location: low back pain Chronicity: chronic Back pain laterality: bilateral Sciatica presence: without sciatica Qualified Code(s): M54.50 - Low back pain, unspecified Discharge ED Provider: Ronn Marie Adult HPI General Chief complaint: Chest Pain Stated complaint: chest pain Time Seen by Provider: 11/08/23 23:15 History of Present Illness HPI narrative: 28-year-old male with no significant past medical history presents with multiple complaints. He reports that he has been having chest pain on the left side on and off for the last month. He reports that he has been having left lower quadrant abdominal pain on and off for the last several months, he also reports bilateral lower back pain, testicular pain etc. He reports that he came tonight because his finally convinced him. He reports that the chest pain is the same as it always has been. Same with the abdominal pain. He reports the testicular pain had been going on for approximately 1 week, was on the right side, but he has been pain-free for the last 2 days at least. He reports that he has had some diarrhea. He denies any fever or recent illness. He reports pain is sometimes worse with movement and with palpation. Related Data Previous Rx's Medication Instructions Recorded cephalexin 500 mg capsule 500 mg PO Q12H 10 days #20 caps 08/07/23 prednisone 20 mg tablet 20 mg PO BID #10 tabs 08/07/23 Allergies Allergy/AdvReac Type Severity Reaction Status Date / Time Penicillins [PENICILLINS] Allergy Mild Verified 08/07/23 15:16 [facility] Disclaimer: The information contained in this section may have been updated after the patient was seen, as this information can be updated by other users. 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 Surgical History History of appendectomy Social History Smoking Status: Former smoker tobacco type: cigarettes packs per day: 1 and smokeless tobacco alcohol intake: never substance use type: denies use current occupational status: employed Travel in the last 8 weeks: None ROS Obtained: Yes All systems reviewed & no additional complaints except as documented Physical Exam General General appearance: alert and in no apparent distress Head Head exam: atraumatic and normocephalic Eye Eye exam: Present normal appearance, PERRL and EOMI ENT ENT exam: Present normal oropharynx and normal external ear exam Neck Neck exam: Present normal inspection and full ROM Chest Chest inspection: Present normal inspection, symmetric chest wall rise and tenderness (Left upper chest) Respiratory Respiratory exam: Present normal lung sounds bilaterally; Absent respiratory distress Cardiovascular Cardiovascular exam: Present regular rate and normal rhythm Abdominal Exam Abdominal exam: Present soft; Absent distention, tenderness or guarding Comment: No inguinal hernia noted exam: Present deferred Extremities Exam Extremities exam: Present normal inspection; Absent edema or joint swelling Back Exam Back exam: Present normal inspection and other (No midline spinal tenderness); Absent CVA tenderness (R) or CVA tenderness (L) Neurological Exam Neurological exam: Present alert and oriented X3; Absent motor sensory deficit Psychiatric Psychiatric exam: Present normal affect and normal mood Skin Skin exam: Present warm, dry and normal color Lymphatic Lymphatic Findings: no adenopathy Medical Decision Making Medical Records Medical records reviewed: Yes I reviewed the patient's medical records. Bennie Inquiry Pt receiving controlled substance: No Bennie was queried for this patient: No Vital Signs: 11/08/23 23:11 11/08/23 23:24 11/08/23 23:30 Temperature 98.3 F Temperature Source Oral Pulse Rate 86 89 Pulse Rate [Radial] 86 Respiratory Rate 18 Blood Pressure 120/90 Blood Pressure [Right Arm] 148/95 H Blood Pressure Mean [Right Arm] 112 Blood Pressure Source [Right Arm] Automatic Cuff Blood Pressure Position [Right Arm] Sitting 02 Sat by Pulse Oximetry 98 97 Oxygen Delivery Method Room Air 11/09/23 00:00 Temperature Temperature Source Pulse Rate 84 Pulse Rate [Radial] Respiratory Rate 18 Blood Pressure 122/81 Blood Pressure [Right Arm] Blood Pressure Mean [Right Arm] Blood Pressure Source [Right Arm] Blood Pressure Position [Right Arm] 02 Sat by Pulse Oximetry 97 Oxygen Delivery Method Lab Data Lab results reviewed: Yes I reviewed the patient's lab results. Lab Results 11/08/23 23:12: WBC 10.1, RBC 5.62, Hgb 17.1, Hct 45.4, MCV 80.7, MCH 30.5, MCHC 37.7 H, RDW 14.1, Plt Count 182, MPV 8.1, Neut % (Auto) 61.4, Lymph % (Auto) 30.3, [place] % (Auto) 5.0, Eos % (Auto) 2.8, Baso % (Auto) 0.5, Neut # (Auto) 6.2, Lymph # (Auto) 3.1, [place] # (Auto) 0.5, Eos # (Auto) 0.3, Baso # (Auto) 0.1, Sodium 139, Potassium 4.3, Chloride 108 H, Carbon Dioxide 24, Anion Gap 11.3, BUN 14, Creatinine 0.70, Estimated Creat Clear 288, Estimated GFR 134, Est GFR ( Amer) 162, Glucose 109 H, Calcium 8.7, Total Bilirubin 0.7, AST 63 H, ALT 78, Alkaline Phosphatase 66, Troponin I 0.02, Total Protein 8.0, Albumin 4.3, Globulin 3.7 H, Albumin/Globulin Ratio 1.2, Lipase 62 11/09/23 00:25: Urine Color Yellow, Urine Appearance Slightly cloudy, Urine pH 6.5, Ur Specific [place] 1.025, Urine Protein 1+, Urine Glucose (UA) Negative, Urine Ketones Negative, Urine Blood 1+, Urine Nitrate Negative, Urine Bilirubin Negative, Urine Urobilinogen 1.0, Ur Leukocyte Esterase Negative, Urine RBC 5-10, Urine WBC Occasional, Ur Squamous Epith Cells Occasional, Urine Bacteria Trace, Urine Mucus 1+ 11/08/23 23:12 11/08/23 23:12 Orders (Tests/Meds): ED MEDICATIONS Discontinued Medications Generic Name Dose Route Start Last Admin Trade Name Xiomara PRN Reason Stop Dose Admin Acetaminophen 1,000 mg 11/08/23 23:17 11/08/23 23:25 Acetaminophen 500mg Tab PO 11/08/23 23:18 1,000 mg ONCE ONE Administration Belladonna Alkaloids 60 ml 11/08/23 23:17 11/08/23 23:25 Belladonna Alkaloids 60 Ml Ml PO 11/08/23 23:18 60 ml ONCE ONE Administration ORDERS Category Date Time Status CXR --portable [XR chest portable] Stat Exams 11/08/23 23:17 Completed KUB (single view) [XR KUB] Stat Exams 11/08/23 23:18 Completed CBC w/Auto Diff [Complete Blood Count Auto Diff] Stat Lab 11/08/23 23:12 Completed CMP [Comprehensive Metabolic Panel] Stat Lab 11/08/23 23:12 Completed Lipase Stat Lab 11/08/23 23:12 Completed Troponin I Q3H Lab 11/08/23 23:12 Completed Troponin I Q3H Lab 11/09/23 02:30 Ordered UA [Urinalysis and Microscopic] Stat Lab 11/09/23 00:25 Completed ECG Data Tracing #1: I reviewed this ECG and interpreted as documented below: Sinus rhythm, rate of 91, no concerning ST or T wave changes, no evidence of arrhythmia. ECG initial impression date: 11/08/23 ECG initial impression time: 23:10 HEART Score History (anamnesis): Slightly suspicious ECG: Normal Age: <45 years Risk factors: No known risk factors Troponin: </= normal limit HEART Score: 0 Medical Decision Narrative: 28-year-old male with no significant past medical history presents with on and off chest pain, multifocal abdominal pain and back pain for the last couple of months.. History was obtained via conversation with patient, family, chart review. On arrival, patient is [afebrile, hemodynamically stable, satting appropriately, alert, oriented x4, GCS 15], moving all extremities spontaneously. Full physical exam performed and significant for clear lungs bilaterally, completely benign abdominal exam, normal vital signs. Differential includes but is not limited to GERD, musculoskeletal pain, constipation, pancreatitis, UTI, cardiac chest pain, lung pathology. Given chronicity of symptoms, and completely benign exam I have low concern for emergent pathology. Patient is PERC negative, no need for D-dimer. Patient will only require a single negative troponin given the patient's low risk and ration of pain. No indication for aspirin at this time. Patient was given Tylenol, GI cocktail for symptomatic management and correction of underlying abnormalities. Workup initiated including CBC CMP troponin lipase UA chest x-ray KUB EKG. On re-evaluation, patient [remains afebrile, HD stable.] Laboratory workup independently interpreted by me and significant for initial undetectable troponin, negative lipase, no significant leukocytosis. Urine shows 5-10 RBCs, microscopic hematuria of undetermined significance, no evidence of infection. Imaging independently interpreted by me and significant for clear lungs bilaterally without evidence of focal opacity, KUB without significant stool burden or obstructive pathology. See radiology read for full review of final results. EKG independently interpreted by me and significant for normal sinus rhythm as documented above.. Interactive discussion with patient regarding his workup. The etiology of patient's multifocal chronic pain is unclear, but I do not believe that there is any emergent pathology that requires further workup in the ER tonight. I am not certain what the etiology of the patient's microscopic hematuria is. His exam and presentation is not consistent with obstructive urolithiasis. Patient follow-up with his PCP for reassessment. Patient discharged in stable condition, return precautions given. Procedures Risk/Benefits of Procedure(s) Were Explained: Yes Critical Care Critical Care Time Critical Care Time: No
[2023-11-08 23:24] VITALS: PULSE 86
[2023-11-08] MEDS: BELLADONNA ALKALOIDS 60 ML ML PO (23:25)
[2023-11-08] MEDS: ACETAMINOPHEN 500MG TAB 1000 MG PO (23:25)
[2023-11-08 23:28] LABS: Basophils # 0.1 K/mm3 (0-0.2); Basophils % 0.5 % (0.1-2.0); Eosinophils # 0.3 K/mm3 (0.0-0.4); Eosinophils % 2.8 % (0.1-12.0); Hematocrit 45.4 % (42.0-52.0); Hemoglobin 17.1 g/dL (14.1-18.0); Lymphocytes # 3.1 K/mm3 (0.7-4.5); Lymphocytes % 30.3 % (10-50); Mean Corpuscular HGB Conc 37.7 g/dL (31.8-35.4); Mean Corpuscular Hemoglobin 30.5 pg (27.0-31.2); Mean Corpuscular Volume 80.7 fl (80-94); Mean Platelet Volume 8.1 fl (7.4-10.4); Monocytes # 0.5 K/mm3 (0.1-1.0); Neutrophils # 6.2 K/mm3 (1.8-7.8); Neutrophils % 61.4 % (37.0-80.0); Platelet Count 182 K/mm3 (142-424); Red Blood Count 5.62 M/mm3 (4.60-6.20); Red Cell Distribution Width 14.1 % (11.5-17.5); White Blood Count 10.1 K/mm3 (4.8-10.8)
--- NOTE | 2023-11-08 23:29 | PC.NURSE ---
Xray at bedside.
[2023-11-08 23:30] VITALS: BP 120/90; PULSE 89; O2SAT 97
[2023-11-08 23:33] LABS: Alanine Aminotransferase 78 U/L (12-78); Albumin Level 4.3 g/dl (3.5-5.0); Albumin/Globulin Ratio 1.2 (1.1-1.8); Alkaline Phosphatase 66 U/L (38-126); Anion Gap 11.3 mEq/L (5-15); Aspartate Amino Transferase 63 U/L (17-59); Bilirubin,Total 0.7 mg/dl (0.2-1.3); Blood Urea Nitrogen 14 mg/dl (9-20); Calcium 8.7 mg/dl (8.4-10.2); Carbon Dioxide 24 mmol/L (22.0-30.0); Chloride 108 mmol/L (98-107); Creatinine Clearance Estimated 288 mL/min (50-200); Estimated Glomerular Filt Rate 134 ml/min (>60); GFR (African American) 162 ML/MIN (>60); Globulin 3.7 g/dL (1.3-3.2); Glucose 109 mg/dl (74-100); Lipase 62 U/L (23-300); Potassium 4.3 mmoL/L (3.5-5.1); Sodium 139 mmol/L (136-145)
[2023-11-08 23:44] LABS: Troponin I 0.02 ng/ml (0.00-0.034)
[2023-11-09] VITALS: BP 122/81; PULSE 84; RESP 18; O2SAT 97
[2023-11-09 00:29] LABS: Microscopic, Urine URINE MICROSCOPIC (MICROSCOPIC)
[2023-11-09 00:31] LABS: Bilirubin,Urine Negative (Negative); Blood, Urine 1+ (Negative); Color,Urine YELLOW (Yellow); Glucose,Urine (UA) Negative (Negative); Ketones,Urine Negative (Negative); Leukocyte Esterase,Urine Negative (Negative); Nitrate,Urine Negative (Negative); PH,Urine 6.5 (5.0-8.5); Protein,Urine 1+ (Negative); Specific Gravity, Urine 1.025 (1.005-1.030)
[2023-11-09 00:36] LABS: Appearance,Urine Slightly Cloudy (Clear)
[2023-11-09 00:50] LABS: Bacteria,Urine Trace /lpf; Squamous Epithelial Cell,Urine Occasional #/hpf (0-5); WBC,Urine Occasional #/hpf (0-3)
[2023-11-09 00:51] LABS: Mucus,Urine 1+ /lpf
[2023-11-09 01:00] VITALS: BP 128/84; PULSE 80; RESP 18; TEMP 36.8; O2SAT 97
== END 2023-11-09 01:01 | disposition home or self-care (01) ==
PROVIDERS: Emergency Provider Emergency Medicine; PCP Physician Assistant
DX: R07.9 Chest pain, unspecified (principal); R10.32 Left lower quadrant pain; R31.9 Hematuria, unspecified; M54.50 Low back pain, unspecified
CPT/HCPCS: 71045; 74018; 80053; 81001; 83690; 84484; 85025; 93005; 99284

== ENCOUNTER 2023-11-18 16:26 | Emergency (ER) | payer OTHER, SELFPAY ==
[2023-11-18] VITALS (7 sets, daily range): BP systolic 117–139; BP diastolic 76–86; PULSE 77–94; RESP 16–18; TEMP 37.2–37.3; O2SAT 94–98; BMI 36.6
--- NOTE | 2023-11-18 17:56 | ED_ITS ---
I was consulted by the DYANA, and we discussed the complexity of the problems being addressed. I approved the treatment and management plan for this patient's care in the emergency department, thus performing a substantive portion of the medical decision making. Lis Graf MD, RADHA, FACE Discharge Plan Disposition Patient Disposition: Home, Self-Care Condition: Good Prescriptions Prescriptions: No Action cephalexin 500 mg capsule 500 mg PO Q12H 10 Days Qty: 20 0RF prednisone 20 mg tablet 20 mg PO BID Qty: 10 0RF Rx Instructions: administer with food or milk Referrals Follow up/Referrals: Shellie Richmond PA [Primary Care Provider] - See instructions Activity Restrictions/Add. Instructions Additional Instructions/Restrictions: Please call and make an appointment in the morning with urology for further evaluation for microscopic hematuria. Follow-up with PCP or return to ER as needed for worsening signs or symptoms. Clinical Impressions Clinical Impression: Acute right flank pain Discharge ED Provider: Lis Graf General Adult HPI General Chief complaint: Abdominal Pain Stated complaint: back pain Time Seen by Provider: 11/18/23 17:56 Mode of Arrival: Ambulatory Source of Information: Patient Limitations: No Limitations Description of Symptoms (Recalled from ER Triage Doc. by RN): c/o lower right side pain that comes and goes since yesterday. History of Present Illness HPI narrative: Patient presents with acute onset right flank pain. Patient denies any trauma or provoking factors. He denies bowel or bladder dysfunction. He denies dysuria. He denies fever chills hemoptysis hematochezia melena nausea vomiting or diarrhea. Related Data Previous Rx's Medication Instructions Recorded cephalexin 500 mg capsule 500 mg PO Q12H 10 days #20 caps 08/07/23 prednisone 20 mg tablet 20 mg PO BID #10 tabs 08/07/23 Allergies Allergy/AdvReac Type Severity Reaction Status Date / Time Penicillins [PENICILLINS] Allergy Mild Verified 08/07/23 15:16 [facility] Disclaimer: The information contained in this section may have been updated after the patient was seen, as this information can be updated by other users. 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 Surgical History History of appendectomy Social History Smoking Status: Never smoker alcohol intake: never substance use type: denies use current occupational status: employed Travel in the last 8 weeks: None ROS Obtained: Yes Systems reviewed as appropriate & no additional complaints except as documented Physical Exam General General appearance: alert and in no apparent distress Head Head exam: atraumatic and normal inspection Eye Eye exam: Present normal appearance, PERRL and EOMI ENT ENT exam: Present normal exam, normal oropharynx and mucous membranes moist Neck Neck exam: Present normal inspection, full ROM and trachea midline; Absent lymphadenopathy Chest Chest inspection: Present normal inspection and symmetric chest wall rise Respiratory Respiratory exam: Present normal lung sounds bilaterally; Absent accessory muscle use Cardiovascular Cardiovascular exam: Present regular rate, normal rhythm, normal heart sounds, +S1 and +S2 Abdominal Exam Abdominal exam: Present soft and normal bowel sounds; Absent tenderness, guardi ng or rebound Abdominal tenderness: Present severe (Patient has negative CVA tenderness to percussion bilaterally but does have right flank discomfort to palpation without any evidence of pulmonary contusion abrasion penetration. Patient does have full range of motion neurovascular intact distally without any evidence of radiculopathy or neuropathy.) Extremities Exam Extremities exam: Present normal inspection and full ROM Neurological Exam Neurological exam: Present alert, oriented X3 and CN II-XII intact Psychiatric Psychiatric exam: Present normal affect and normal mood Skin Skin exam: Present warm, dry and normal color Medical Decision Making Medical Records Medical records reviewed: Yes I reviewed the patient's medical records. Bennie Inquiry Pt receiving controlled substance: No Vital Signs: 11/18/23 17:30 11/18/23 18:30 11/18/23 19:00 Temperature 99.2 F Temperature Source Oral Pulse Rate 83 77 Pulse Rate [Left Radial] 94 H Respiratory Rate 18 Blood Pressure 117/86 126/80 Blood Pressure [Right Arm] 139/82 Blood Pressure Mean 90 Blood Pressure Mean [Right Arm] 101 Blood Pressure Position [Right Arm] Sitting 02 Sat by Pulse Oximetry 97 94 L 97 Oxygen Delivery Method Room Air Room Air 11/18/23 19:30 Temperature Temperature Source Pulse Rate 80 Pulse Rate [Left Radial] Respiratory Rate Blood Pressure 121/76 Blood Pressure [Right Arm] Blood Pressure Mean 87 Blood Pressure Mean [Right Arm] Blood Pressure Position [Right Arm] 02 Sat by Pulse Oximetry 97 Oxygen Delivery Method Lab Data Lab results reviewed: Yes I reviewed the patient's lab results. Lab Results 11/18/23 17:40: Urine Color Yellow, Urine Appearance Clear, Urine pH 7.0, Ur Specific [place] 1.025, Urine Protein 2+, Urine Glucose (UA) Negative, Urine Ketones Negative, Urine Blood 1+, Urine Nitrate Negative, Urine Bilirubin Negative, Urine Urobilinogen 0.2, Ur Leukocyte Esterase Negative, Urine RBC 5- 10, Urine WBC None, Ur Squamous Epith Cells Occasional, Urine Bacteria None, Urine Opiates Screen Negative, Urine Methadone Screen Negative, Ur Barbituates Screen Negative, Ur Phencyclidine Scrn Negative, Ur Amphetamines Screen Negative, U Benzodiazepines Scrn Negative, Urine Cocaine Screen Negative, U Marijuana (THC) Screen Negative 11/18/23 18:31: WBC 9.7, RBC 5.65, Hgb 16.2, Hct 47.3, MCV 83.7, MCH 28.6, MCHC 34.2, RDW 14.0, Plt Count 225, MPV 7.9, Neut % (Auto) 69.0, Lymph % (Auto) 22.9, [place] % (Auto) 5.6, Eos % (Auto) 1.9, Baso % (Auto) 0.5, Neut # (Auto) 6.7, Lymph # (Auto) 2.2, [place] # (Auto) 0.5, Eos # (Auto) 0.2, Baso # (Auto) 0.1, Sodium 138, Potassium 4.3, Chloride 107, Carbon Dioxide 29, Anion Gap 6.3, BUN 13, Creatinine 0.90, Estimated Creat Clear 223, Estimated GFR 100, Est GFR ( Amer) 122, Glucose 85, Calcium 9.0, Total Bilirubin 0.5, AST 54, ALT 75, Alkal ine Phosphatase 75, Total Protein 8.0, Albumin 4.3, Globulin 3.7 H, Albumin/G lobulin Ratio 1.2 11/18/23 18:31 11/18/23 18:31 Orders (Tests/Meds): ED MEDICATIONS Discontinued Medications Generic Name Dose Route Start Last Admin Trade Name Freq PRN Reason Stop Dose Admin Acetaminophen 1,000 mg 11/18/23 18:22 11/18/23 18:30 Acetaminophen 1,000mg/100ml Vial IV 11/18/23 18:23 1,000 mg ONCE ONE Administration Ketorolac Tromethamine 15 mg 11/18/23 18:22 11/18/23 18:41 Ketorolac 30mg/Ml Vial IM 11/18/23 18:23 Not Given ONCE ONE Ketorolac Tromethamine 15 mg 11/18/23 18:29 11/18/23 18:31 Ketorolac 30mg/Ml Vial IV 11/18/23 18:30 15 mg ONCE ONE Administration ORDERS Category Date Time Status CT abdomen pelvis wo con Stat Cat Scan 11/18/23 18:22 Taken CBC w/Auto Diff [Complete Blood Count Auto Diff] Stat Lab 11/18/23 18:31 Completed CMP [Comprehensive Metabolic Panel] Stat Lab 11/18/23 18:31 Completed Drug Screen,Urine Stat Lab 11/18/23 17:40 Completed Urinalysis and Microscopic Stat Lab 11/18/23 17:40 Completed Medical Decision Narrative: In summary patient is a 28-year-old male who presents to the emergency department for evaluation of right flank pain. Patient is hemodynamically stable upon arrival, afebrile. Physical exam shows tenderness to palpation over the right flank. Patient does not have right upper quadrant pain and has negative Rico sign, no tenderness over McBurney's point. Patient has no epigastric tenderness patient does not have abdominal bruits. Bowel sounds normoactive. Differential diagnosis includes kidney stone versus PE versus dissection versus cardiovascular versus musculoskeletal strain. Initial workup will be conducted with hematologic labs CT scan of the abdomen pelvis without contrast. Initial interventions include Toradol and acetaminophen. Initial workup reviewed by me shows no evidence of elevated white count with no shift bu t continues to show microscopic hematuria. No evidence of pyuria or bacturia. My informal interpretation of his CT scan of the abdomen pelvis shows no acute processes including no stones. Upon repeat evaluation moderate relief of his symptoms with administration of NSAIDs. Denae with patient findings and patient is comfortable going home with close follow-up with PCP as an outpatient. Given this patient appropriate for discharge with instructions for muscle skeletal strain. Patient to follow-up with urology as an outpatient for evaluation of microscopic hematuria. Critical Care Critical Care Time Critical Care Time: No
--- NOTE | 2023-11-18 18:22 | CT_ITS ---
FINAL REPORT TECHNIQUE: Noncontrast exam CLINICAL HISTORY: Right flank pain, r/o kidney stone. COMPARISON: February 10, 2022. FINDINGS: Abdomen: Lung bases are clear. There is fatty liver. The gallbladder is normal. Spleen, pancreas and adrenal glands have a normal CT appearance in their limited unenhanced state. There is no renal stone disease or hydronephrosis. No obvious renal mass is present. Pelvis: No distal ureteral stones are seen. There has been presumed appendectomy. Bladder is decompressed. No fluid collection or adenopathy is seen. IMPRESSION: No acute findings. Reviewed, Interpreted and Dictated by Markos Hussein MD Transcribed by Isidro Adam Authenticated and [facility]
[2023-11-18] MEDS: ACETAMINOPHEN 1,000MG/100ML VIAL 1000 MG IV (18:30)
[2023-11-18] MEDS: KETOROLAC 30MG/ML VIAL 15 MG IV (18:31)
[2023-11-18 18:38] LABS: Microscopic, Urine URINE MICROSCOPIC (MICROSCOPIC)
[2023-11-18 18:42] LABS: Basophils # 0.1 K/mm3 (0-0.2); Basophils % 0.5 % (0.1-2.0); Eosinophils # 0.2 K/mm3 (0.0-0.4); Eosinophils % 1.9 % (0.1-12.0); Hematocrit 47.3 % (42.0-52.0); Hemoglobin 16.2 g/dL (14.1-18.0); Lymphocytes # 2.2 K/mm3 (0.7-4.5); Lymphocytes % 22.9 % (10-50); Mean Corpuscular HGB Conc 34.2 g/dL (31.8-35.4); Mean Corpuscular Hemoglobin 28.6 pg (27.0-31.2); Mean Corpuscular Volume 83.7 fl (80-94); Mean Platelet Volume 7.9 fl (7.4-10.4); Monocytes # 0.5 K/mm3 (0.1-1.0); Monocytes % 5.6 % (1.7-9.3); Neutrophils # 6.7 K/mm3 (1.8-7.8); Platelet Count 225 K/mm3 (142-424); Red Blood Count 5.65 M/mm3 (4.60-6.20); White Blood Count 9.7 K/mm3 (4.8-10.8)
[2023-11-18 18:45] LABS: Appearance,Urine CLEAR (Clear); Bilirubin,Urine Negative (Negative); Blood, Urine 1+ (Negative); Color,Urine YELLOW (Yellow); Glucose,Urine (UA) Negative (Negative); Ketones,Urine Negative (Negative); Leukocyte Esterase,Urine Negative (Negative); Nitrate,Urine Negative (Negative); Protein,Urine 2+ (Negative); Specific Gravity, Urine 1.025 (1.005-1.030); Urobilinogen,Urine 0.2 EU/dl (0.2)
[2023-11-18 18:50] LABS: Chloride 107 mmol/L (98-107); Potassium 4.3 mmoL/L (3.5-5.1); Sodium 138 mmol/L (136-145)
[2023-11-18 18:53] LABS: Alanine Aminotransferase 75 U/L (12-78); Albumin Level 4.3 g/dl (3.5-5.0); Albumin/Globulin Ratio 1.2 (1.1-1.8); Alkaline Phosphatase 75 U/L (38-126); Anion Gap 6.3 mEq/L (5-15); Aspartate Amino Transferase 54 U/L (17-59); Bilirubin,Total 0.5 mg/dl (0.2-1.3); Blood Urea Nitrogen 13 mg/dl (9-20); Carbon Dioxide 29 mmol/L (22.0-30.0); Creatinine Clearance Estimated 223 mL/min (50-200); Estimated Glomerular Filt Rate 100 ml/min (>60); GFR (African American) 122 ML/MIN (>60); Globulin 3.7 g/dL (1.3-3.2); Glucose 85 mg/dl (74-100)
[2023-11-18 18:59] LABS: Amphetamine/Metha Screen,Urine Negative ng/ml (<1000)
[2023-11-18 19:00] LABS: Barbiturates Screen,Urine Negative ng/ml (<200); Benzodiazepines Screen,Urine Negative ng/ml (<200)
[2023-11-18 19:01] LABS: Methadone Screen,Urine Negative ng/ml (<300)
[2023-11-18 19:02] LABS: Cannabinoid Screen,Urine Negative ng/ml (<50); Cocaine Screen,Urine Negative ng/ml (<300)
[2023-11-18 19:03] LABS: Opiate Screen,Urine Negative ng/ml (<300); Phencyclidine Screen,Urine Negative ng/ml (<25); Squamous Epithelial Cell,Urine Occasional #/hpf (0-5)
== END 2023-11-18 21:23 | disposition home or self-care (01) ==
PROVIDERS: Physician Assistant; Emergency Provider Student in an Organized Health Care Education/Training Program; PCP Physician Assistant
DX: R10.31 Right lower quadrant pain (principal)
CPT/HCPCS: 74176; 80053; 80307; 81001; 85025; 96374; 96375; 99285; J0131

== ENCOUNTER 2023-11-21 22:18 | Outpatient (CLI) | payer OTHER, SELFPAY ==
[2023-11-21 19:03] LABS: Basophils # 0.1 K/mm3 (0-0.2); Basophils % 1.3 % (0.1-2.0); Eosinophils # 0.1 K/mm3 (0.0-0.4); Eosinophils % 1.7 % (0.1-12.0); Hematocrit 49.7 % (42.0-52.0); Hemoglobin 16.4 g/dL (14.1-18.0); Lymphocytes # 2.2 K/mm3 (0.7-4.5); Lymphocytes % 26.7 % (10-50); Mean Corpuscular HGB Conc 33.1 g/dL (31.8-35.4); Mean Corpuscular Hemoglobin 28.4 pg (27.0-31.2); Mean Corpuscular Volume 85.9 fl (80-94); Mean Platelet Volume 8.8 fl (7.4-10.4); Monocytes # 0.5 K/mm3 (0.1-1.0); Monocytes % 5.7 % (1.7-9.3); Neutrophils # 5.3 K/mm3 (1.8-7.8); Neutrophils % 64.8 % (37.0-80.0); Platelet Count 185 K/mm3 (142-424); Red Blood Count 5.78 M/mm3 (4.60-6.20); Red Cell Distribution Width 14.1 % (11.5-17.5); White Blood Count 8.2 K/mm3 (4.8-10.8)
[2023-11-21 19:12] LABS: Monoscreen (Rapid) Negative (Negative)
[2023-11-21 19:43] LABS: Alanine Aminotransferase 69 U/L (12-78); Albumin Level 4.5 g/dl (3.5-5.0); Albumin/Globulin Ratio 1.4 (1.1-1.8); Alkaline Phosphatase 81 U/L (38-126); Anion Gap 11.4 mEq/L (5-15); Aspartate Amino Transferase 52 U/L (17-59); Bilirubin,Total 0.7 mg/dl (0.2-1.3); Blood Urea Nitrogen 13 mg/dl (9-20); Calcium 9.4 mg/dl (8.4-10.2); Carbon Dioxide 26 mmol/L (22.0-30.0); Chloride 106 mmol/L (98-107); Chol/HDL Ratio 8.4 (1-3.5); Cholesterol 185 mg/dl (140-200); Estimated Glomerular Filt Rate 100 ml/min (>60); GFR (African American) 122 ML/MIN (>60); Globulin 3.2 g/dL (1.3-3.2); Glucose 82 mg/dl (74-100); HDL Cholesterol 22 mg/dl (40-60); Potassium 4.4 mmoL/L (3.5-5.1); Sodium 139 mmol/L (136-145); Total Protein,Serum 7.7 g/dl (6.3-8.2); Triglycerides 234 mg/dl (30-150); VLDL Cholesterol 47 mg/dL (0-40)
[2023-11-21 19:53] LABS: Direct LDL Cholesterol 115.61 mg/dL (100-129)
[2023-11-21 20:13] LABS: Thyroid Stimulating Hormone 1.36 uIU/mL (0.465-4.68)
[2023-11-21 20:32] LABS: Vitamin B12 932 pg/mL (239-931)
[2023-11-23 05:53] LABS: Testosterone,Total 192 ng/dL (264-916)
[2023-11-25 15:26] LABS: EBV Ab VCA, IgG >600.0 U/mL (0.0-17.9); EBV Ab VCA, IgM <36.0 U/mL (0.0-35.9); EBV Nuclear Antigen Ab, IgG 29.5 U/mL (0.0-17.9)
== END 2023-11-21 23:59 ==
PROVIDERS: PCP Physician Assistant; Visit Provider Physician Assistant
DX: R10.9 Unspecified abdominal pain (principal); R07.81 Pleurodynia; E66.9 Obesity, unspecified; Z68.36 Body mass index [BMI] 36.0-36.9, adult
CPT/HCPCS: 80053; 80061; 82306; 82607; 84403; 84443; 85025; 86318; 86664; 86665

== ENCOUNTER 2023-11-26 07:48 | Emergency (ER) | payer OTHER, SELFPAY ==
[2023-11-26 07:49] VITALS: BP 137/92; PULSE 85; RESP 17; TEMP 36.6; O2SAT 97; BMI 36.6
[2023-11-26 08:00] VITALS: BP 127/87; PULSE 78; O2SAT 96
--- NOTE | 2023-11-26 08:05 | PC.NURSE ---
Dr. Maurer at BS for pt eval
--- NOTE | 2023-11-26 08:10 | XR_ITS ---
FINAL REPORT CLINICAL HISTORY: LLQ pain, constipation COMPARISON: 11/08/2023 FINDINGS: SINGLE VIEW ABDOMEN A single view of the abdomen was obtained. There is a nonobstructive bowel gas pattern. There is a moderate stool burden. There are no abnormally dilated loops of small bowel. No abnormal calcifications are identified. IMPRESSION: Nonobstructive bowel gas pattern with a moderate stool burden. Reviewed, Interpreted and Dictated by Armando Cristobal III, MD Transcribed by Kaylynn Hernandez Authenticated and [facility] [place] [place]
--- NOTE | 2023-11-26 08:20 | PC.NURSE ---
pt to scan via wheelchair
--- NOTE | 2023-11-26 08:20 | PC.NURSE ---
pt to scan, ambulatory with rad staff
[2023-11-26 08:22] LABS: Basophils # 0.1 K/mm3 (0-0.2); Basophils % 1.2 % (0.1-2.0); Eosinophils # 0.2 K/mm3 (0.0-0.4); Eosinophils % 2.1 % (0.1-12.0); Hematocrit 47.8 % (42.0-52.0); Hemoglobin 16.3 g/dL (14.1-18.0); Lymphocytes # 2.4 K/mm3 (0.7-4.5); Lymphocytes % 27.2 % (10-50); Mean Corpuscular HGB Conc 34.2 g/dL (31.8-35.4); Mean Corpuscular Hemoglobin 28.7 pg (27.0-31.2); Mean Corpuscular Volume 84.1 fl (80-94); Mean Platelet Volume 8.5 fl (7.4-10.4); Monocytes # 0.6 K/mm3 (0.1-1.0); Monocytes % 6.7 % (1.7-9.3); Neutrophils # 5.5 K/mm3 (1.8-7.8); Neutrophils % 62.7 % (37.0-80.0); Platelet Count 190 K/mm3 (142-424); Red Blood Count 5.68 M/mm3 (4.60-6.20); White Blood Count 8.7 K/mm3 (4.8-10.8)
--- NOTE | 2023-11-26 08:22 | ED_ITS ---
Discharge Plan Disposition Patient Disposition: Home, Self-Care Condition: Good Prescriptions Prescriptions: New polyethylene glycol 3350 [Miralax] 17 gram/dose powder 17 g PO DAILY 7 Days Qty: 119 0RF Referrals Follow up/Referrals: Shellie Richmond PA [Primary Care Provider] - See instructions Instructions Patient Instructions: DI for Acute Abdominal Pain Discharge ED Provider: Stoney Nichole Adult HPI General Chief complaint: Abdominal Pain Stated complaint: lower Lt side pain Time Seen by Provider: 11/26/23 07:57 Mode of Arrival: Ambulatory Source of Information: Patient Limitations: No Limitations Description of Symptoms (Recalled from ER Triage Doc. by RN): pt presents to ED with c/o left sided flank pain. pt reports being intoxicated saturday morning and had a fall into the wall. pts reports he did not hit his head. pain began saturday when he woke up. History of Present Illness HPI narrative: 28-year-old male with past medical history significant for [place], presents today for evaluation concerning left lower quadrant abdominal pain that has been present intermittently over the past 2 to 3 days. He states that he has also had constipation over the same time period. To add to history he notes that on Saturday he drank a lot of alcohol and fell and hit his left side. Denies any other associated injuries. Denies any fevers, chills, chest pain, shortness of breath, nausea, vomiting, back pain, dysuria, hematuria, diarrhea or any other associated symptoms. Related Data Previous Rx's Medication Instructions Recorded polyethylene glycol 3350 17 17 g PO DAILY 7 days #119 grams 11/26/23 gram/dose oral powder (Miralax) Allergies Allergy/AdvReac Type Severity Reaction Status Date / Time Penicillins [PENICILLINS] Allergy Mild Verified 11/26/23 08:01 [facility] Disclaimer: The information contained in this section may have been updated after the patient was seen, as this information can be updated by other users. 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 Surgical History History of appendectomy Social History Smoking Status: Never smoker alcohol intake: never substance use type: denies use current occupational status: employed Travel in the last 8 weeks: None ROS Obtained: Yes All systems reviewed & no additional complaints except as documented Physical Exam General General appearance: alert and in no apparent distress Head Head exam: atraumatic and normocephalic Eye Eye exam: Present normal appearance, PERRL and EOMI ENT ENT exam: Present normal oropharynx and mucous membranes moist Neck Neck exam: Present full ROM; Absent meningismus Respiratory Respiratory exam: Absent respiratory distress, wheezes, stridor or accessory muscle use Cardiovascular Cardiovascular exam: Present normal rhythm Abdominal Exam Abdominal exam: Present soft and tenderness (Left lower quadrant); Absent distention, guarding, rebound or rigidity Neurological Exam Neurological exam: Present alert, oriented X3 and CN II-XII intact; Absent motor sensory deficit Psychiatric Psychiatric exam: Present normal affect and normal mood Skin Skin exam: Present warm and dry Medical Decision Making Medical Records Medical records reviewed: Yes I reviewed the patient's medical records. Bennie Inquiry Pt receiving controlled substance: No Bennie was queried for this patient: No Vital Signs: 11/26/23 07:49 11/26/23 08:00 11/26/23 08:30 Temperature 97.9 F Temperature Source Oral Pulse Rate 78 78 Pulse Rate [Left Radial] 85 Respiratory Rate 17 Blood Pressure 127/87 120/85 Blood Pressure [Right Arm] 137/92 H Blood Pressure Mean Blood Pressure Mean [Right Arm] 107 02 Sat by Pulse Oximetry 97 96 96 Oxygen Delivery Method Room Air Room Air Room Air 11/26/23 09:00 Temperature Temperature Source Pulse Rate 82 Pulse Rate [Left Radial] Respiratory Rate Blood Pressure 125/84 Blood Pressure [Right Arm] Blood Pressure Mean 92 Blood Pressure Mean [Right Arm] 02 Sat by Pulse Oximetry 96 Oxygen Delivery Method Room Air Lab Data Lab Results 11/26/23 07:58: WBC 8.7, RBC 5.68, Hgb 16.3, Hct 47.8, MCV 84.1, MCH 28.7, MCHC 34.2, RDW 14.0, Plt Count 190, MPV 8.5, Neut % (Auto) 62.7, Lymph % (Auto) 27.2, [place] % (Auto) 6.7, Eos % (Auto) 2.1, Baso % (Auto) 1.2, Neut # (Auto) 5.5, Lymph # (Auto) 2.4, [place] # (Auto) 0.6, Eos # (Auto) 0.2, Baso # (Auto) 0.1, Sodium 140, Potassium 4.0, Chloride 107, Carbon Dioxide 27, Anion Gap 10.0, BUN 12, Creatinine 0.90, Estimated Creat Clear 223, Estimated GFR 100, Est GFR ( Amer) 122, Glucose 110 H, Calcium 9.3, Total Bilirubin 0.6, AST 46, ALT 63, Alkaline Phosphatase 85, Total Protein 7.9, Albumin 4.4, Globulin 3.5 H, Albumin/Globulin Ratio 1.3, Lipase 40 11/26/23 08:29: Lactate 0.8 11/26/23 07:58 11/26/23 07:58 Orders (Tests/Meds): ED MEDICATIONS Discontinued Medications Generic Name Dose Route Start Last Admin Trade Name Freq PRN Reason Stop Dose Admin Acetaminophen 1,000 mg 11/26/23 08:10 11/26/23 08:29 Acetaminophen 500mg Tab PO 11/26/23 08:11 1,000 mg ONCE ONE Administration Ibuprofen 800 mg 11/26/23 08:10 11/26/23 08:29 Ibuprofen 400 Mg Tablet PO 11/26/23 08:11 800 mg ONCE ONE Administration ORDERS Category Date Time Status KUB (single view) [XR KUB] Stat Exams 11/26/23 08:10 Taken CBC w/Auto Diff [Complete Blood Count Auto Diff] Stat Lab 11/26/23 07:58 C ompleted CMP [Comprehensive Metabolic Panel] Stat Lab 11/26/23 07:58 Completed Lactic Acid Stat Lab 11/26/23 08:29 Completed Lipase Stat Lab 11/26/23 07:58 Completed Medical Decision Narrative: 28-year-old male with past medical history significant for [place], presents today for evaluation concerning left lower quadrant abdominal pain that has been present intermittently over the past 2 to 3 days. He states that he has also had constipation over the same time period. To add to history he notes that on Saturday he drank a lot of alcohol and fell and hit his left side. On assessment, the patient was hemodynamically stable and in no acute distress. Afebrile. Physical exam was remarkable for mild tenderness to palpation in the left lower quadrant without rebound or guarding. The abdomen was soft and nondistended throughout. Other physical exam findings unremarkable. Differential diagnosis includes not limited to constipation, gastroenteritis, diverticulitis, among others. CBC, CMP, lipase and KUB ordered to further assess. Patient's lab work today has been reassuring and nonactionable. No elevation in WBC to suggest infection. No electrolyte derangements. No transaminitis. Normal lipase. KUB informally interpreted by me and was notable for constipation in the left and right colon. On reassessment the patient remains medically stable and in no acute distress. He states that his pain is improved at this time. I discussed with patient his ED workup results and diagnosis of constipation. We did have d iscussion concerning CT imaging however since patient's symptoms are more consistent with constipation which was revealed by KUB and with no lab derangements, decision was made to forego. Discussed with patient recommendation to take MiraLAX daily which I will prescribe. Provided him with return ED precautions and instructions concerning PCP follow-up. He verbalized understanding and agreement. Subsequently discharged home in medically stable and in no acute distress. Critical Care Critical Care Time Critical Care Time: No
--- NOTE | 2023-11-26 08:23 | PC.NURSE ---
PT RETURNED FROM CT
--- NOTE | 2023-11-26 08:23 | PC.NURSE ---
pt back to room from scan
[2023-11-26 08:25] LABS: Alanine Aminotransferase 63 U/L (12-78); Albumin Level 4.4 g/dl (3.5-5.0); Albumin/Globulin Ratio 1.3 (1.1-1.8); Alkaline Phosphatase 85 U/L (38-126); Aspartate Amino Transferase 46 U/L (17-59); Bilirubin,Total 0.6 mg/dl (0.2-1.3); Blood Urea Nitrogen 12 mg/dl (9-20); Calcium 9.3 mg/dl (8.4-10.2); Carbon Dioxide 27 mmol/L (22.0-30.0); Chloride 107 mmol/L (98-107); Creatinine Clearance Estimated 223 mL/min (50-200); Estimated Glomerular Filt Rate 100 ml/min (>60); GFR (African American) 122 ML/MIN (>60); Globulin 3.5 g/dL (1.3-3.2); Glucose 110 mg/dl (74-100); Lipase 40 U/L (23-300); Sodium 140 mmol/L (136-145); Total Protein,Serum 7.9 g/dl (6.3-8.2)
[2023-11-26] MEDS: ACETAMINOPHEN 500MG TAB 1000 MG PO (08:29)
[2023-11-26] MEDS: IBUPROFEN 400 MG TABLET 800 MG PO (08:29)
[2023-11-26 08:30] VITALS: BP 120/85; PULSE 78; O2SAT 96
[2023-11-26 08:45] LABS: Lactic Acid 0.8 mmol/L (0.7-2.1)
[2023-11-26 09:00] VITALS: BP 125/84; PULSE 82; O2SAT 96
--- NOTE | 2023-11-26 09:16 | PC.NURSE ---
Rounded on pt to see if they had any needs and pt said joaquina had no needs at this time
[2023-11-26 09:47] VITALS: BP 125/84; PULSE 82; RESP 16; TEMP 36.7; O2SAT 96
== END 2023-11-26 09:51 | disposition home or self-care (01) ==
PROVIDERS: Emergency Provider Emergency Medicine; PCP Physician Assistant
DX: R10.32 Left lower quadrant pain (principal); K59.00 Constipation, unspecified; K75.81 Nonalcoholic steatohepatitis (NASH)
CPT/HCPCS: 74018; 80053; 83605; 83690; 85025; 99284

== ENCOUNTER 2023-11-30 09:02 | Outpatient (CLI) | payer OTHER, SELFPAY ==
[2023-12-01 08:30] LABS: Testosterone,Total 226 ng/dL (264-916)
== END 2023-11-30 23:59 ==
PROVIDERS: PCP Physician Assistant; Visit Provider Physician Assistant
DX: R79.89 Other specified abnormal findings of blood chemistry (principal)
CPT/HCPCS: 36415; 84403

== ENCOUNTER 2024-01-13 15:19 | Outpatient (CLI) | payer OTHER, SELFPAY ==
[2024-01-15 08:18] LABS: Sex Hormone Binding Globulin 14.1 nmol/L (16.5-55.9); Testosterone,Total 197 ng/dL (264-916)
== END 2024-01-13 23:59 | disposition home or self-care (01) ==
LOC: LAB 15:19
PROVIDERS: PCP Physician Assistant; Visit Provider Urology
DX: N50.819 Testicular pain, unspecified (principal)
CPT/HCPCS: 84270; 84402; 84403

== ENCOUNTER 2024-01-17 13:13 | Outpatient (CLI) | payer OTHER, SELFPAY ==
--- NOTE | 2024-01-17 13:13 | US_ITS ---
FINAL REPORT TECHNIQUE: Ultrasound images of the testicles were obtained bilaterally. Color Doppler images were obtained. CLINICAL HISTORY: scrotal pain COMPARISON: None FINDINGS: The testicles are normal in size and echotexture bilaterally. Arterial flow is identified bilaterally. There are moderate bilateral varicoceles. There is a left epididymal cyst. IMPRESSION: Moderate bilateral varicoceles. Left epididymal cyst. Reviewed, Interpreted and Dictated by Kevin Bauer MD Transcribed by Kaylynn Hernandez Authenticated and [facility]
== END 2024-01-17 23:59 | disposition home or self-care (01) ==
LOC: RAD 13:13
PROVIDERS: PCP Physician Assistant; Visit Provider Urology
DX: N50.819 Testicular pain, unspecified (principal)
CPT/HCPCS: 76870; 76882

== ENCOUNTER 2024-02-25 17:06 | Emergency (ER) | payer OTHER, SELFPAY ==
--- NOTE | 2024-02-25 17:18 | ED_ITS ---
Discharge Plan Disposition Patient Disposition: Home, Self-Care Condition: Good Prescriptions Prescriptions: New pantoprazole [Protonix] 40 mg tablet,delayed release (DR/EC) 40 mg PO HS 56 Days Qty: 56 0RF methocarbamol 750 mg tablet 750 mg PO Q6H PRN (Reason: muscle spasm) Qty: 30 0RF No Action pantoprazole [Protonix] 40 mg tablet,delayed release (DR/EC) 40 mg PO DAILY Qty: 30 2RF famotidine 40 mg tablet 40 mg PO DAILY Qty: 30 2RF testosterone [AndroGel] 20.25 mg/1.25 gram (1.62 %) gel in metered-dose pump 2 pump topical DAILY 30 Days Qty: 75 1RF Rx Instructions: Apply to shoulder and upper chest covered by undershirt when dry Referrals Follow up/Referrals: Shellie Richmond PA [Primary Care Provider] - See instructions Discharge ED Provider: Felipe Guerra General Chief Complaint: Chest Pain Stated Complaint: pain in left shoulder blade Time Seen by Provider: 02/25/24 17:18 Related Data Previous Rx's Medication Instructions Recorded famotidine 40 mg tablet 40 mg PO DAILY #30 tabs 01/06/24 pantoprazole 40 mg tablet,delayed 40 mg PO DAILY #30 tabs 01/06/24 release (Protonix) testosterone (AndroGel) 2 pump topical DAILY 30 days #75 02/18/24 grams methocarbamol 750 mg tablet 750 mg PO Q6H PRN muscle spasm #30 02/25/24 tabs pantoprazole 40 mg tablet,delayed 40 mg PO HS 8 weeks #56 tabs 02/25/24 release (Protonix) Allergies Allergy/AdvReac Type Severity Reaction Status Date / Time Penicillins [PENICILLINS] Allergy Mild Verified 02/25/24 17:36 [facility] Disclaimer: The information contained in this section may have been updated after the patient was seen, as this information can be updated by other users. Medical History Testosterone deficiency in male Os trigonum syndrome Injury of right heel Hepatosplenomegaly Surgical History History of appendectomy Social History Smoking Status: Current every day smoker tobacco type: cigarettes packs per day: 1 and smokeless tobacco alcohol intake: never substance use type: denies use current occupational status: employed Travel in the last 8 weeks: None Medical Decision Making Vital Signs Vital Signs: 02/25/24 17:27 02/25/24 18:08 02/25/24 18:30 Temperature 97.8 F Temperature Source Oral Pulse Rate 76 76 Pulse Rate [Left] 81 Respiratory Rate 16 Blood Pressure 123/85 126/87 Blood Pressure [Right Arm] 120/87 Blood Pressure Mean 94 Blood Pressure Mean [Right Arm] 98 Blood Pressure Source [Right Arm] Automatic Cuff Blood Pressure Position [Right Arm] Sitting 02 Sat by Pulse Oximetry 97 96 97 Oxygen Delivery Method Room Air 02/25/24 18:30 02/25/24 18:54 Temperature 97.8 F Temperature Source Pulse Rate 73 Pulse Rate [Left] Respiratory Rate 16 Blood Pressure 126/87 126/77 Blood Pressure [Right Arm] Blood Pressure Mean 103 Blood Pressure Mean [Right Arm] Blood Pressure Source [Right Arm] Blood Pressure Position [Right Arm] 02 Sat by Pulse Oximetry Oxygen Delivery Method Lab Data Labs: Lab Results 02/25/24 17:25: WBC 8.9, RBC 5.77, Hgb 16.3, Hct 48.5, MCV 84.0, MCH 28.2, MCHC 33.6, RDW 14.0, Plt Count 207, MPV 8.3, Neut % (Auto) 66.3, Lymph % (Auto) 25.6, [place] % (Auto) 5.6, Eos % (Auto) 1.4, Baso % (Auto) 1.1, Neut # (Auto) 5.9, Lymph # (Auto) 2.3, [place] # (Auto) 0.5, Eos # (Auto) 0.1, Baso # (Auto) 0.1, PT 10.9, INR 1.01, Sodium 140, Potassium 4.2, Chloride 106, Carbon Dioxide 25, Anion Gap 13.2, BUN 15, Creatinine 1.00, Estimated Creat Clear 203, Estimated GFR 89, Est GFR ( Amer) 108, Glucose 104 H, Calcium 9.4, Magnesium 1.9, Total Bilirubin 0.7, AST 63 H, ALT 101 H, Alkaline Phosphatase 72, Troponin I < 0.01, Total Protein 8.3 H, Albumin 4.4, Globulin 3.9 H, Albumin/Globulin Ratio 1.1, Lipase 41 02/25/24 17:40: Urine Color Yellow, Urine Appearance Clear, Urine pH 6.0, Ur Specific [place] >= 1.030, Urine Protein 2+, Urine Glucose (UA) Negative, Urine Ketones Negative, Urine Blood 1+, Urine Nitrate Negative, Urine Bilirubin 1+ A, Urine Urobilinogen 0.2, Ur Leukocyte Esterase Negative, Urine RBC 3-5, Urine WBC Occasional, Ur Squamous Epith Cells Occasional, Urine Bacteria None 02/25/24 17:25 02/25/24 17:25 Response Orders (Tests/Meds): ED MEDICATIONS Discontinued Medications Generic Name Dose Route Start Last Admin Trade Name Freq PRN Reason Stop Dose Admin Acetaminophen 1,000 mg 02/25/24 17:24 02/25/24 17:56 Acetaminophen 1,000mg/100ml Vial IV 02/25/24 17:25 1,000 mg ONCE ONE Administration Belladonna Alkaloids 60 ml 02/25/24 17:24 02/25/24 17:55 Belladonna Alkaloids 60 Ml Ml PO 02/25/24 17:25 60 ml ONCE ONE Administration Dexamethasone Sodium Phosphate 10 mg 02/25/24 17:24 02/25/24 17:56 Dexamethasone 4mg/Ml 5ml Mdv IV 02/25/24 17:25 10 mg ONCE ONE Administration Famotidine 20 mg 02/25/24 17:24 02/25/24 17:56 Famotidine 20mg/2ml Vial IV 02/25/24 17:25 20 mg ONCE ONE Administration Lactated Ringer's 1,000 mls @ 999 mls/hr 02/25/24 17:24 02/25/24 17:56 Lactated Ringer's 1000 Ml Bag IV 02/25/24 18:24 999 mls/hr .Q1H1M ONE Administration Ketorolac Tromethamine 15 mg 02/25/24 17:24 02/25/24 17:56 Ketorolac 30mg/Ml Vial IV 02/25/24 17:25 15 mg ONCE ONE Administration Methocarbamol 500 mg 02/25/24 21:00 Methocarbamol 500mg Tablet PO 03/26/24 20:59 BID VERNON Methocarbamol 500 mg 02/25/24 18:26 02/25/24 18:27 Methocarbamol 500mg Tablet PO 02/25/24 18:27 500 mg ONCE ONE Administration Sodium Chloride 8 ml 02/25/24 17:24 Sodium Chloride 0.9% 10ml Vial IV 03/26/24 17:23 NEEDED PRN dilute pepcid ORDERS Category Date Time Status Chest XR -- portable [XR chest portable] Stat Exams 02/25/24 17:24 Completed CBC w/Auto Diff [Complete Blood Count Auto Diff] Stat Lab 02/25/24 17:25 Completed CMP [Comprehensive Metabolic Panel] Stat Lab 02/25/24 17:25 Completed INR [Prothrombin Time INR] Stat Lab 02/25/24 17:25 Completed Lipase Stat Lab 02/25/24 17:25 Completed Magnesium Stat Lab 02/25/24 17:25 Completed Trop I [Troponin I] Stat Lab 02/25/24 17:25 Completed UA [Urinalysis and Microscopic] Stat Lab 02/25/24 17:40 Completed
--- NOTE | 2024-02-25 17:18 | PC.NURSE ---
Roderick BARAJAS at BS for pt eval
--- NOTE | 2024-02-25 17:20 | ECG_ITS ---
APPROVED REPORT Exam: Resting ECG HR:85 bpm ECG Measurements Heart Rate 85 AXES GA 159 P 52 QRSd 106 QRS 79 QT 337 T 9 QTc 379 Conclusion SINUS RHYTHM Electronically signed by : MADAY RAMAN, 02/25/2024 21:33:37
--- NOTE | 2024-02-25 17:23 | PC.NURSE ---
Pt brought over from [facility] via wheelchair. [facility] reports they noticed pt was checked in as pain in left shoulder blade , and they pulled pt back for provider to evaluate and Micheline Siddiqi RN stated Juanita said he had to go over here . Provider did not s/w Dr. Guerra prior to transfer to ER.
--- NOTE | 2024-02-25 17:24 | XR_ITS ---
PROCEDURE INFORMATION: Exam: XR Chest Exam date and time: 02/25/2024 5:27 PM Age: 28 years old Clinical indication: Other: Chest pain TECHNIQUE: Imaging protocol: Radiologic exam of the chest. Views: 1 view. COMPARISON: CR XR CHEST PORTABLE 11/08/2023 11:23 PM FINDINGS: Lungs: No evidence of acute airspace infiltrate. No pulmonary edema. Pleural spaces: No significant pleural effusion. No pneumothorax. Heart/Mediastinum: Cardiomediastinal silouhette is within normal limits. Bones/joints: No evidence of acute osseous abnormality. IMPRESSION: No acute findings.
[2024-02-25 17:27] VITALS: BP 120/87; PULSE 81; RESP 16; TEMP 36.6; O2SAT 97; BMI 36.9
--- NOTE | 2024-02-25 17:31 | PC.NURSE ---
Pt checked in and wrote on clip board left shoulder blade pain that goes to center of chest . I saw the clip board and pulled pt to the side. I asked him what was going on he again told me that for the last three days he has had pain under left shoulder blade that travels mid-sternum. He stated that it is pain 10/10. I asked if he was SOB he stated no. I asked if he was nauseous he stated yes. I asked if the pain gotten worse he stated that it get worse when he moves his leg. I asked if he had cardiac problems he stated not that he was aware of. I grabbed provider Usama Rodgers APRN from room one while with a patient. She came over spoke with the patient and stated that he needed to go over to the ER now. I called ER spoke with staff about issues and was given room 8. I took pt over in the wheel chair placed pt in bed and hooked up bp cuff, and pulse ox. ER nurses came into the room and I exited room. Went to ER MD explained the situation and explained that if he wanted to speak with provider to let me know or call over. He stated that it was fine if he needed anything he would.
[2024-02-25 17:40] LABS: Basophils # 0.1 K/mm3 (0-0.2); Basophils % 1.1 % (0.1-2.0); Chloride 106 mmol/L (98-107); Eosinophils # 0.1 K/mm3 (0.0-0.4); Eosinophils % 1.4 % (0.1-12.0); Hematocrit 48.5 % (42.0-52.0); Hemoglobin 16.3 g/dL (14.1-18.0); Lymphocytes # 2.3 K/mm3 (0.7-4.5); Lymphocytes % 25.6 % (10-50); Mean Corpuscular HGB Conc 33.6 g/dL (31.8-35.4); Mean Corpuscular Hemoglobin 28.2 pg (27.0-31.2); Mean Platelet Volume 8.3 fl (7.4-10.4); Monocytes # 0.5 K/mm3 (0.1-1.0); Monocytes % 5.6 % (1.7-9.3); Neutrophils # 5.9 K/mm3 (1.8-7.8); Neutrophils % 66.3 % (37.0-80.0); Platelet Count 207 K/mm3 (142-424); Red Blood Count 5.77 M/mm3 (4.60-6.20); White Blood Count 8.9 K/mm3 (4.8-10.8)
[2024-02-25 17:41] LABS: Potassium 4.2 mmoL/L (3.5-5.1); Sodium 140 mmol/L (136-145)
[2024-02-25 17:44] LABS: Alanine Aminotransferase 101 U/L (12-78); Albumin Level 4.4 g/dl (3.5-5.0); Albumin/Globulin Ratio 1.1 (1.1-1.8); Alkaline Phosphatase 72 U/L (38-126); Anion Gap 13.2 mEq/L (5-15); Aspartate Amino Transferase 63 U/L (17-59); Bilirubin,Total 0.7 mg/dl (0.2-1.3); Blood Urea Nitrogen 15 mg/dl (9-20); Calcium 9.4 mg/dl (8.4-10.2); Carbon Dioxide 25 mmol/L (22.0-30.0); Creatinine Clearance Estimated 203 mL/min (50-200); Estimated Glomerular Filt Rate 89 ml/min (>60); GFR (African American) 108 ML/MIN (>60); Globulin 3.9 g/dL (1.3-3.2); Glucose 104 mg/dl (74-100); Lipase 41 U/L (23-300); Magnesium 1.9 mg/dl (1.6-2.3); Total Protein,Serum 8.3 g/dl (6.3-8.2)
[2024-02-25 17:45] LABS: INR 1.01 (0.9-1.1); Prothrombin Time 10.9 seconds (10.1-12.5)
[2024-02-25] MEDS: BELLADONNA ALKALOIDS 60 ML ML PO (17:55)
[2024-02-25] MEDS: LACTATED RINGERS 1000ML 1,000 ML 999 ML IV (17:56)
[2024-02-25] MEDS: DEXAMETHASONE 4MG/ML 5ML MDV 10 MG IV (17:56)
[2024-02-25] MEDS: FAMOTIDINE 20MG/2ML VIAL 20 MG IV (17:56)
[2024-02-25] MEDS: KETOROLAC 30MG/ML VIAL 15 MG IV (17:56)
[2024-02-25] MEDS: ACETAMINOPHEN 1,000MG/100ML VIAL 1000 MG IV (17:56)
[2024-02-25 17:59] LABS: Troponin I < 0.01 ng/ml (0.00-0.034)
[2024-02-25 18:01] LABS: Microscopic, Urine URINE MICROSCOPIC (MICROSCOPIC)
[2024-02-25 18:08] VITALS: BP 123/85; PULSE 76; O2SAT 96
[2024-02-25 18:21] LABS: Appearance,Urine CLEAR (Clear); Blood, Urine 1+ (Negative); Color,Urine YELLOW (Yellow); Glucose,Urine (UA) Negative (Negative); Ketones,Urine Negative (Negative); Leukocyte Esterase,Urine Negative (Negative); Nitrate,Urine Negative (Negative); Protein,Urine 2+ (Negative); Specific Gravity, Urine >= 1.030 (1.005-1.030); Urobilinogen,Urine 0.2 EU/dl (0.2)
[2024-02-25 18:22] LABS: Bilirubin,Urine 1+ (Negative)
[2024-02-25 18:23] LABS: Squamous Epithelial Cell,Urine Occasional #/hpf (0-5); WBC,Urine Occasional #/hpf (0-3)
[2024-02-25] MEDS: METHOCARBAMOL 500MG TABLET 500 MG PO (18:27)
[2024-02-25 18:30] VITALS: BP 126/87; PULSE 76; O2SAT 97
--- NOTE | 2024-02-25 18:42 | ED_ITS ---
Discharge Plan Disposition Chief Complaint: Chest Pain Prescriptions Prescriptions: No Action pantoprazole [Protonix] 40 mg tablet,delayed release (DR/EC) 40 mg PO DAILY Qty: 30 2RF famotidine 40 mg tablet 40 mg PO DAILY Qty: 30 2RF testosterone [AndroGel] 20.25 mg/1.25 gram (1.62 %) gel in metered-dose pump 2 pump topical DAILY 30 Days Qty: 75 1RF Rx Instructions: Apply to shoulder and upper chest covered by undershirt when dry Referrals Follow up/Referrals: Shellie Richmond PA [Primary Care Provider] - See instructions Discharge ED Provider: Felipe Guerra General Chief Complaint: Chest Pain Stated Complaint: pain in left shoulder blade Time Seen by Provider: 02/25/24 17:18 Mode of Arrival: Ambulatory Source of Information: Patient and Spouse Limitations: No Limitations Description of Symptoms (Recalled from ER Triage Doc. by RN): pt c/o 10/10 L shoulder blade pain that radiates to his L chest. pt states he awoke with these symptoms 3d ago. pt also c/o N/V. pt reports he took 400mg ibuprofen about 2hrs ago without any relief. Related Data Previous Rx's Medication Instructions Recorded famotidine 40 mg tablet 40 mg PO DAILY #30 tabs 01/06/24 pantoprazole 40 mg tablet,delayed 40 mg PO DAILY #30 tabs 01/06/24 release (Protonix) testosterone (AndroGel) 2 pump topical DAILY 30 days #75 02/18/24 grams Allergies Allergy/AdvReac Type Severity Reaction Status Date / Time Penicillins [PENICILLINS] Allergy Mild Verified 02/25/24 17:36 [facility] Disclaimer: The information contained in this section may have been updated after the patient was seen, as this information can be updated by other users. Medical History Testosterone deficiency in male Os trigonum syndrome Injury of right heel Hepatosplenomegaly Surgical History History of appendectomy Social History Smoking Status: Current every day smoker tobacco type: cigarettes packs per day: 1 and smokeless tobacco alcohol intake: never substance use type: denies use current occupational status: employed Travel in the last 8 weeks: None Physical Exam General General appearance: alert and in no apparent distress Medical Decision Making Vital Signs Vital Signs: 02/25/24 17:27 02/25/24 18:08 02/25/24 18:30 Temperature 97.8 F Temperature Source Oral Pulse Rate 76 76 Pulse Rate [Left] 81 Respiratory Rate 16 Blood Pressure 123/85 126/87 Blood Pressure [Right Arm] 120/87 Blood Pressure Mean 94 Blood Pressure Mean [Right Arm] 98 Blood Pressure Source [Right Arm] Automatic Cuff Blood Pressure Position [Right Arm] Sitting 02 Sat by Pulse Oximetry 97 96 97 Oxygen Delivery Method Room Air 02/25/24 18:30 Temperature Temperature Source Pulse Rate Pulse Rate [Left] Respiratory Rate Blood Pressure 126/87 Blood Pressure [Right Arm] Blood Pressure Mean 103 Blood Pressure Mean [Right Arm] Blood Pressure Source [Right Arm] Blood Pressure Position [Right Arm] 02 Sat by Pulse Oximetry Oxygen Delivery Method Lab Data Labs: Lab Results 02/25/24 17:25: WBC 8.9, RBC 5.77, Hgb 16.3, Hct 48.5, MCV 84.0, MCH 28.2, MCHC 33.6, RDW 14.0, Plt Count 207, MPV 8.3, Neut % (Auto) 66.3, Lymph % (Auto) 25.6, [place] % (Auto) 5.6, Eos % (Auto) 1.4, Baso % (Auto) 1.1, Neut # (Auto) 5.9, Lymph # (Auto) 2.3, [place] # (Auto) 0.5, Eos # (Auto) 0.1, Baso # (Auto) 0.1, PT 10.9, INR 1.01, Sodium 140, Potassium 4.2, Chloride 106, Carbon Dioxide 25, Anion Gap 13.2, BUN 15, Creatinine 1.00, Estimated Creat Clear 203, Estimated GFR 89, Est GFR ( Amer) 108, Glucose 104 H, Calcium 9.4, Magnesium 1.9, Total Bilirubin 0.7, AST 63 H, ALT 101 H, Alkaline Phosphatase 72, Troponin I < 0.01, Total Protein 8.3 H, Albumin 4.4, Globulin 3.9 H, Albumin/Globulin Ratio 1.1, Lipase 41 02/25/24 17:40: Urine Color Yellow, Urine Appearance Clear, Urine pH 6.0, Ur Specific [place] >= 1.030, Urine Protein 2+, Urine Glucose (UA) Negative, Urine Ketones Negative, Urine Blood 1+, Urine Nitrate Negative, Urine Bilirubin 1+ A, Urine Urobilinogen 0.2, Ur Leukocyte Esterase Negative, Urine RBC 3-5, Urine WBC Occasional, Ur Squamous Epith Cells Occasional, Urine Bacteria None 02/25/24 17:25 02/25/24 17:25 Response Orders (Tests/Meds): ED MEDICATIONS Generic Name Dose Route Start Last Admin Trade Name Freq PRN Reason Stop Dose Admin Sodium Chloride 8 ml 02/25/24 17:24 Sodium Chloride 0.9% 10ml Vial IV 03/26/24 17:23 NEEDED PRN dilute pepcid Discontinued Medications Generic Name Dose Route Start Last Admin Trade Name Freq PRN Reason Stop Dose Admin Acetaminophen 1,000 mg 02/25/24 17:24 02/25/24 17:56 Acetaminophen 1,000mg/100ml Vial IV 02/25/24 17:25 1,000 mg ONCE ONE Administration Belladonna Alkaloids 60 ml 02/25/24 17:24 02/25/24 17:55 Belladonna Alkaloids 60 Ml Ml PO 02/25/24 17:25 60 ml ONCE ONE Administration Dexamethasone Sodium Phosphate 10 mg 02/25/24 17:24 02/25/24 17:56 Dexamethasone 4mg/Ml 5ml Mdv IV 02/25/24 17:25 10 mg ONCE ONE Administration Famotidine 20 mg 02/25/24 17:24 02/25/24 17:56 Famotidine 20mg/2ml Vial IV 02/25/24 17:25 20 mg ONCE ONE Administration Lactated Ringer's 1,000 mls @ 999 mls/hr 02/25/24 17:24 02/25/24 17:56 Lactated Ringer's 1000 Ml Bag IV 02/25/24 18:24 999 mls/hr .Q1H1M ONE Administration Ketorolac Tromethamine 15 mg 02/25/24 17:24 02/25/24 17:56 Ketorolac 30mg/Ml Vial IV 02/25/24 17:25 15 mg ONCE ONE Administration Methocarbamol 500 mg 02/25/24 21:00 Methocarbamol 500mg Tablet PO 03/26/24 20:59 BID VERNON Methocarbamol 500 mg 02/25/24 18:26 02/25/24 18:27 Methocarbamol 500mg Tablet PO 02/25/24 18:27 500 mg ONCE ONE Administration ORDERS Category Date Time Status Chest XR -- portable [XR chest portable] Stat Exams 02/25/24 17:24 Completed CBC w/Auto Diff [Complete Blood Count Auto Diff] Stat Lab 02/25/24 17:25 Completed CMP [Comprehensive Metabolic Panel] Stat Lab 02/25/24 17:25 Completed INR [Prothrombin Time INR] Stat Lab 02/25/24 17:25 Completed Lipase Stat Lab 02/25/24 17:25 Completed Magnesium Stat Lab 02/25/24 17:25 Completed Trop I [Troponin I] Stat Lab 02/25/24 17:25 Completed Troponin I Q3H Lab 02/25/24 20:30 Ordered Troponin I Q3H Lab 02/25/24 23:30 Ordered UA [Urinalysis and Microscopic] Stat Lab 02/25/24 17:40 Completed MDM Narrative Medical Decision Narrative: Mari: Independent hypertension of EKG with sinus rhythm 85 beats a minute no ST or T wave changes concerning for acute ischemia. [place], QRS, QT intervals 159/106/379 respectively. [place] normal.
[2024-02-25 18:54] VITALS: BP 126/77; PULSE 73; RESP 16; TEMP 36.6; O2SAT 97
--- NOTE | 2024-02-25 19:55 | HMH.EDGENADL ---
Discharge Plan Disposition Patient Disposition: Home, Self-Care Condition: Good Prescriptions Prescriptions: New pantoprazole [Protonix] 40 mg tablet,delayed release (DR/EC) 40 mg PO HS 56 Days Qty: 56 0RF methocarbamol 750 mg tablet 750 mg PO Q6H PRN (Reason: muscle spasm) Qty: 30 0RF No Action pantoprazole [Protonix] 40 mg tablet,delayed release (DR/EC) 40 mg PO DAILY Qty: 30 2RF famotidine 40 mg tablet 40 mg PO DAILY Qty: 30 2RF testosterone [AndroGel] 20.25 mg/1.25 gram (1.62 %) gel in metered-dose pump 2 pump topical DAILY 30 Days Qty: 75 1RF Rx Instructions: Apply to shoulder and upper chest covered by undershirt when dry Referrals Follow up/Referrals: Shellie Richmond PA [Primary Care Provider] - See instructions Activity Restrictions/Add. Instructions Additional Instructions/Restrictions: Follow-up with your PCP closely. Ask your PCP for referral for bidirectional endoscopy instead of a colonoscopy. Return to PCP or ER for any worsening signs or symptoms as needed. Clinical Impressions Clinical Impression: Chest pain Qualifiers: Chest pain type: unspecified Qualified Code(s): R07.9 - Chest pain, unspecified Instructions Patient Instructions: DI for Atypical Chest Pain Discharge ED Provider: Felipe Guerra General Adult HPI <BRADEN Banuelos - Last Filed: 02/25/24 20:00> General Chief complaint: Chest Pain Stated complaint: pain in left shoulder blade Time Seen by Provider: 02/25/24 17:18 Mode of Arrival: Ambulatory Source of Information: Patient and Spouse Limitations: No Limitations Description of Symptoms (Recalled from ER Triage Doc. by RN): pt c/o 10/10 L shoulder blade pain that radiates to his L chest. pt states he awoke with these symptoms 3d ago. pt also c/o N/V. pt reports he took 400mg ibuprofen about 2hrs ago without any relief. History of Present Illness HPI narrative: Patient presents for evaluation of pain under the left shoulder blade that radiates to his anterior chest.? Patient states that this began 3 days ago and initially was intermittent but now has become constant.? There are no aggravating or relieving factors.? He has no known cardiovascular history and his only prescribed medication that he actually is not taking is testosterone.? He has been prescribed famotidine in the past.? He denies shortness of breath fever chills hemoptysis hematochezia melena nausea vomiting diarrhea.? Denies dysphagia.? He denies difficulty or change with oral intake. Related Data Previous Rx's Medication Instructions Recorded famotidine 40 mg tablet 40 mg PO DAILY #30 tabs 01/06/24 pantoprazole 40 mg tablet,delayed 40 mg PO DAILY #30 tabs 01/06/24 release (Protonix) testosterone (AndroGel) 2 pump topical DAILY 30 days #75 02/18/24 grams methocarbamol 750 mg tablet 750 mg PO Q6H PRN muscle spasm #30 02/25/24 tabs pantoprazole 40 mg tablet,delayed 40 mg PO HS 8 weeks #56 tabs 02/25/24 release (Protonix) Allergies Allergy/AdvReac Type Severity Reaction Status Date / Time Penicillins [PENICILLINS] Allergy Mild Verified 02/25/24 17:36 [facility] <BRADEN Banuelos - Last Filed: 02/25/24 20:00> [facility] Disclaimer: The information contained in this section may have been updated after the patient was seen, as this information can be updated by other users. Medical History Testosterone deficiency in male Os trigonum syndrome Injury of right heel Hepatosplenomegaly Surgical History History of appendectomy Social History Smoking Status: Current every day smoker tobacco type: cigarettes packs per day: 1 and smokeless tobacco alcohol intake: never substance use type: denies use current occupational status: employed Travel in the last 8 weeks: None <BRADEN Banuelos - Last Filed: 02/25/24 20:00> ROS Obtained: Yes Systems reviewed as appropriate & no additional complaints except as documented Physical Exam <BRADEN Banuelos - Last Filed: 02/25/24 20:00> General General appearance: alert and in no apparent distress Head Head exam: atraumatic and normal inspection Eye Eye exam: Present normal appearance, PERRL and EOMI ENT ENT exam: Present normal exam, normal oropharynx and mucous membranes moist Neck Neck exam: Present normal inspection, full ROM and trachea midline; Absent lymphadenopathy Chest Chest inspection: Present normal inspection and symmetric chest wall rise Respiratory Respiratory exam: Present normal lung sounds bilaterally; Absent accessory muscle use Cardiovascular Cardiovascular exam: Present regular rate, normal rhythm, normal heart sounds, +S1 and +S2 Abdominal Exam Abdominal exam: Present soft and normal bowel sounds; Absent tenderness, guarding or rebound Extremities Exam Extremities exam: Present normal inspection and full ROM Back Exam Back exam: Present normal inspection and full ROM; Absent tenderness Neurological Exam Neurological exam: Present alert, oriented X3 and CN II-XII intact Psychiatric Psychiatric exam: Present normal affect and normal mood Skin Skin exam: Present warm, dry and normal color Medical Decision Making <BRADEN Banuelos - Last Filed: 02/25/24 20:00> Medical Records Medical records reviewed: Yes I reviewed the patient's medical records. Bennie Inquiry Pt receiving controlled substance: No Vital Signs: 02/25/24 17:27 02/25/24 18:08 02/25/24 18:30 Temperature 97.8 F Temperature Source Oral Pulse Rate 76 76 Pulse Rate [Left] 81 Respiratory Rate 16 Blood Pressure 123/85 126/87 Blood Pressure [Right Arm] 120/87 Blood Pressure Mean 94 Blood Pressure Mean [Right Arm] 98 Blood Pressure Source [Right Arm] Automatic Cuff Blood Pressure Position [Right Arm] Sitting 02 Sat by Pulse Oximetry 97 96 97 Oxygen Delivery Method Room Air 02/25/24 18:30 02/25/24 18:54 Temperature 97.8 F Temperature Source Pulse Rate 73 Pulse Rate [Left] Respiratory Rate 16 Blood Pressure 126/87 126/77 Blood Pressure [Right Arm] Blood Pressure Mean 103 Blood Pressure Mean [Right Arm] Blood Pressure Source [Right Arm] Blood Pressure Position [Right Arm] 02 Sat by Pulse Oximetry Oxygen Delivery Method Lab Data Lab results reviewed: Yes I reviewed the patient's lab results. Lab Results 02/25/24 17:25: WBC 8.9, RBC 5.77, Hgb 16.3, Hct 48.5, MCV 84.0, MCH 28.2, MCHC 33.6, RDW 14.0, Plt Count 207, MPV 8.3, Neut % (Auto) 66.3, Lymph % (Auto) 25.6, [place] % (Auto) 5.6, Eos % (Auto) 1.4, Baso % (Auto) 1.1, Neut # (Auto) 5.9, Lymph # (Auto) 2.3, [place] # (Auto) 0.5, Eos # (Auto) 0.1, Baso # (Auto) 0.1, PT 10.9, INR 1.01, Sodium 140, Potassium 4.2, Chloride 106, Carbon Dioxide 25, Anion Gap 13.2, BUN 15, Creatinine 1.00, Estimated Creat Clear 203, Estimated GFR 89, Est GFR ( Amer) 108, Glucose 104 H, Calcium 9.4, Magnesium 1.9, Total Bilirubin 0.7, AST 63 H, ALT 101 H, Alkaline Phosphatase 72, Troponin I < 0.01, Total Protein 8.3 H, Albumin 4.4, Globulin 3.9 H, Albumin/Globulin Ratio 1.1, Lipase 41 02/25/24 17:40: Urine Color Yellow, Urine Appearance Clear, Urine pH 6.0, Ur Specific Maxwell >= 1.030, Urine Protein 2+, Urine Glucose (UA) Negative, Urine Ketones Negative, Urine Blood 1+, Urine Nitrate Negative, Urine Bilirubin 1+ A, Urine Urobilinogen 0.2, Ur Leukocyte Esterase Negative, Urine RBC 3-5, Urine WBC Occasional, Ur Squamous Epith Cells Occasional, Urine Bacteria None 02/25/24 17:25 02/25/24 17:25 Orders (Tests/Meds): ED MEDICATIONS Discontinued Medications Generic Name Dose Route Start Last Admin Trade Name Xiomara PRN Reason Stop Dose Admin Acetaminophen 1,000 mg 02/25/24 17:24 02/25/24 17:56 Acetaminophen 1,000mg/100ml Vial IV 02/25/24 17:25 1,000 mg ONCE ONE Administration Belladonna Alkaloids 60 ml 02/25/24 17:24 02/25/24 17:55 Belladonna Alkaloids 60 Ml Ml PO 02/25/24 17:25 60 ml ONCE ONE Administration Dexamethasone Sodium Phosphate 10 mg 02/25/24 17:24 02/25/24 17:56 Dexamethasone 4mg/Ml 5ml Mdv IV 02/25/24 17:25 10 mg ONCE ONE Administration Famotidine 20 mg 02/25/24 17:24 02/25/24 17:56 Famotidine 20mg/2ml Vial IV 02/25/24 17:25 20 mg ONCE ONE Administration Lactated Ringer's 1,000 mls @ 999 mls/hr 02/25/24 17:24 02/25/24 17:56 Lactated Ringer's 1000 Ml Bag IV 02/25/24 18:24 999 mls/hr .Q1H1M ONE Administration Ketorolac Tromethamine 15 mg 02/25/24 17:24 02/25/24 17:56 Ketorolac 30mg/Ml Vial IV 02/25/24 17:25 15 mg ONCE ONE Administration Methocarbamol 500 mg 02/25/24 21:00 Methocarbamol 500mg Tablet PO 03/26/24 20:59 BID VERNON Methocarbamol 500 mg 02/25/24 18:26 02/25/24 18:27 Methocarbamol 500mg Tablet PO 02/25/24 18:27 500 mg ONCE ONE Administration Sodium Chloride 8 ml 02/25/24 17:24 Sodium Chloride 0.9% 10ml Vial IV 03/26/24 17:23 NEEDED PRN dilute pepcid ORDERS Category Date Time Status Chest XR -- portable [XR chest portable] Stat Exams 02/25/24 17:24 Completed CBC w/Auto Diff [Complete Blood Count Auto Diff] Stat Lab 02/25/24 17:25 Completed CMP [Comprehensive Metabolic Panel] Stat Lab 02/25/24 17:25 Completed INR [Prothrombin Time INR] Stat Lab 02/25/24 17:25 Completed Lipase Stat Lab 02/25/24 17:25 Completed Magnesium Stat Lab 02/25/24 17:25 Completed Trop I [Troponin I] Stat Lab 02/25/24 17:25 Completed UA [Urinalysis and Microscopic] Stat Lab 02/25/24 17:40 Completed HEART Score History (anamnesis): Slightly suspicious ECG: Normal Age: <45 years Risk factors: 1-2 risk factors Troponin: </= normal limit HEART Score: 1 Medical Decision Narrative: In summary patient is a 28-year-old male who presents to the emergency department for evaluation of chest pain. Patient is hemodynamically stable upon arrival, afebrile. Physical exam is remarkable for nonreproducible left subscapular back pain that radiates to the left anterior chest. Normal breath sounds normal heart sounds no abdominal tenderness to palpation. Differential diagnosis includes ACS versus PE versus pneumonia versus gastroenteritis versus ulcer disease versus esophagitis versus GERD etc. Initial workup will be conducted with hematologic labs plain film chest x-ray twelve-lead EKG . Initial interventions include fluid bolus Toradol Tylenol Decadron Robaxin GI cocktail Pepcid continuous pulse oximetry and cardiac monitoring. Initial workup reviewed by me shows that his hematologic labs are nonactionable and my informal review of his plain film chest x-ray shows no acute processes per radiologist read. Upon repeat evaluation patient had moderate improvement in his symptoms after GI cocktail and Pepcid. Given this patient is appropriate for discharge with close follow-up with his PCP for referral for bidirectional endoscopy. Patient already has colonoscopy scheduled in 2 to 3 weeks. He is also given a prescription for Robaxin and Protonix. <Felipe Guerra MD - Last Filed: 02/25/24 21:35> Vital Signs: 02/25/24 17:27 02/25/24 18:08 02/25/24 18:30 Temperature 97.8 F Temperature Source Oral Pulse Rate 76 76 Pulse Rate [Left] 81 Respiratory Rate 16 Blood Pressure 123/85 126/87 Blood Pressure [Right Arm] 120/87 Blood Pressure Mean 94 Blood Pressure Mean [Right Arm] 98 Blood Pressure Source [Right Arm] Automatic Cuff Blood Pressure Position [Right Arm] Sitting 02 Sat by Pulse Oximetry 97 96 97 Oxygen Delivery Method Room Air 02/25/24 18:30 02/25/24 18:54 Temperature 97.8 F Temperature Source Pulse Rate 73 Pulse Rate [Left] Respiratory Rate 16 Blood Pressure 126/87 126/77 Blood Pressure [Right Arm] Blood Pressure Mean 103 Blood Pressure Mean [Right Arm] Blood Pressure Source [Right Arm] Blood Pressure Position [Right Arm] 02 Sat by Pulse Oximetry Oxygen Delivery Method Lab Data Lab Results 02/25/24 17:25: WBC 8.9, RBC 5.77, Hgb 16.3, Hct 48.5, MCV 84.0, MCH 28.2, MCHC 33.6, RDW 14.0, Plt Count 207, MPV 8.3, Neut % (Auto) 66.3, Lymph % (Auto) 25.6, [place] % (Auto) 5.6, Eos % (Auto) 1.4, Baso % (Auto) 1.1, Neut # (Auto) 5.9, Lymph # (Auto) 2.3, [place] # (Auto) 0.5, Eos # (Auto) 0.1, Baso # (Auto) 0.1, PT 10.9, INR 1.01, Sodium 140, Potassium 4.2, Chloride 106, Carbon Dioxide 25, Anion Gap 13.2, BUN 15, Creatinine 1.00, Estimated Creat Clear 203, Estimated GFR 89, Est GFR ( Amer) 108, Glucose 104 H, Calcium 9.4, Magnesium 1.9, Total Bilirubin 0.7, AST 63 H, ALT 101 H, Alkaline Phosphatase 72, Troponin I < 0.01, Total Protein 8.3 H, Albumin 4.4, Globulin 3.9 H, Albumin/Globulin Ratio 1.1, Lipase 41 02/25/24 17:40: Urine Color Yellow, Urine Appearance Clear, Urine pH 6.0, Ur Specific Maxwell >= 1.030, Urine Protein 2+, Urine Glucose (UA) Negative, Urine Ketones Negative, Urine Blood 1+, Urine Nitrate Negative, Urine Bilirubin 1+ A, Urine Urobilinogen 0.2, Ur Leukocyte Esterase Negative, Urine RBC 3-5, Urine WBC Occasional, Ur Squamous Epith Cells Occasional, Urine Bacteria None Orders (Tests/Meds): ED MEDICATIONS Discontinued Medications Generic Name Dose Route Start Last Admin Trade Name Freq PRN Reason Stop Dose Admin Acetaminophen 1,000 mg 02/25/24 17:24 02/25/24 17:56 Acetaminophen 1,000mg/100ml Vial IV 02/25/24 17:25 1,000 mg ONCE ONE Administration Belladonna Alkaloids 60 ml 02/25/24 17:24 02/25/24 17:55 Belladonna Alkaloids 60 Ml Ml PO 02/25/24 17:25 60 ml ONCE ONE Administration Dexamethasone Sodium Phosphate 10 mg 02/25/24 17:24 02/25/24 17:56 Dexamethasone 4mg/Ml 5ml Mdv IV 02/25/24 17:25 10 mg ONCE ONE Administration Famotidine 20 mg 02/25/24 17:24 02/25/24 17:56 Famotidine 20mg/2ml Vial IV 02/25/24 17:25 20 mg ONCE ONE Administration Lactated Ringer's 1,000 mls @ 999 mls/hr 02/25/24 17:24 02/25/24 17:56 Lactated Ringer's 1000 Ml Bag IV 02/25/24 18:24 999 mls/hr .Q1H1M ONE Administration Ketorolac Tromethamine 15 mg 02/25/24 17:24 02/25/24 17:56 Ketorolac 30mg/Ml Vial IV 02/25/24 17:25 15 mg ONCE ONE Administration Methocarbamol 500 mg 02/25/24 21:00 Methocarbamol 500mg Tablet PO 03/26/24 20:59 BID VERNON Methocarbamol 500 mg 02/25/24 18:26 02/25/24 18:27 Methocarbamol 500mg Tablet PO 02/25/24 18:27 500 mg ONCE ONE Administration Sodium Chloride 8 ml 02/25/24 17:24 Sodium Chloride 0.9% 10ml Vial IV 03/26/24 17:23 NEEDED PRN dilute pepcid ORDERS Category Date Time Status Chest XR -- portable [XR chest portable] Stat Exams 02/25/24 17:24 Completed CBC w/Auto Diff [Complete Blood Count Auto Diff] Stat Lab 02/25/24 17:25 Completed CMP [Comprehensive Metabolic Panel] Stat Lab 02/25/24 17:25 Completed INR [Prothrombin Time INR] Stat Lab 02/25/24 17:25 Completed Lipase Stat Lab 02/25/24 17:25 Completed Magnesium Stat Lab 02/25/24 17:25 Completed Trop I [Troponin I] Stat Lab 02/25/24 17:25 Completed UA [Urinalysis and Microscopic] Stat Lab 02/25/24 17:40 Completed HEART Score HEART Score: 1 Medical Decision Narrative: In summary patient is a 28-year-old male who presents to the emergency department for evaluation of chest pain. Patient is hemodynamically stable upon arrival, afebrile. Physical exam is remarkable for nonreproducible left subscapular back pain that radiates to the left anterior chest. Normal breath sounds normal heart sounds no abdominal tenderness to palpation. Differential diagnosis includes ACS versus PE versus pneumonia versus gastroenteritis versus ulcer disease versus esophagitis versus GERD etc. Initial workup will be conducted with hematologic labs plain film chest x-ray twelve-lead EKG . Initial interventions include fluid bolus Toradol Tylenol Decadron Robaxin GI cocktail Pepcid continuous pulse oximetry and cardiac monitoring. Initial workup reviewed by me shows that his hematologic labs are nonactionable and my informal review of his plain film chest x-ray shows no acute processes per radiologist read. Upon repeat evaluation patient had moderate improvement in his symptoms after GI cocktail and Pepcid. Given this patient is appropriate for discharge with close follow-up with his PCP for referral for bidirectional endoscopy. Patient already has colonoscopy scheduled in 2 to 3 weeks. He is also given a prescription for Robaxin and Protonix. Mari: Independent interpretation of EKG demonstrates sinus rhythm 85 beats a minute without ST or T wave changes concerning for acute ischemia. AK 159, QRS 106, QTc 379. [place] normal. Because patient at baseline without signs or symptoms of clinical decompensation, deemed appropriate for discharge. Results were relayed to patient who voiced understanding and were agreeable to outpatient management and follow up. I discussed my clinical impression with patient and answered all questions. At this time, the evidence for any other entities in the differential is insufficient to warrant any further testing or ED observation. This was explained as well. Advisory was given that persistent or worsening symptoms require further evaluation. I confirmed the understanding of this discussion. I was consulted by the DYANA, and we discussed the complexity of the problems being addressed. I approved the treatment and management plan for this patient?s care in the Emergency Department, thus performing a substantive portion of the medical decision making. Felipe Guerra MD Critical Care <BRADEN Banuelos - Last Filed: 02/25/24 20:00> Critical Care Time Critical Care Time: No
== END 2024-02-25 18:59 | disposition home or self-care (01) ==
LOC: UTC 17:10 → ER 17:17
PROVIDERS: Physician Assistant; Emergency Provider Emergency Medicine; PCP Physician Assistant
DX: R07.89 Other chest pain (principal); F17.210 Nicotine dependence, cigarettes, uncomplicated
CPT/HCPCS: 71045; 80053; 81001; 83690; 83735; 84484; 85025; 85610; 93005; 96361; 96374; 96375; 99284; J0131; J7120

== ENCOUNTER 2024-03-06 15:17 | Outpatient (CLI) | payer OTHER, SELFPAY ==
--- NOTE | 2024-03-06 15:22 | XR_ITS ---
FINAL REPORT CLINICAL HISTORY: thoracic back pain, radiating to left chest FINDINGS: THORACIC SPINE Three views demonstrate no acute fracture. There are mild degenerative changes with osteophytes. There is no malalignment. IMPRESSION: Mild degenerative changes. Reviewed, Interpreted and Dictated by Armando Cristobal III, MD Transcribed by Sarah Dickerson Authenticated and [facility]
== END 2024-03-06 23:59 | disposition home or self-care (01) ==
PROVIDERS: PCP Physician Assistant; Visit Provider Physician Assistant
DX: M54.6 Pain in thoracic spine (principal)
CPT/HCPCS: 72072

== ENCOUNTER 2024-04-29 10:44 | Day surgery (SDC) | payer OTHER, SELFPAY ==
[2024-04-29 11:05] VITALS: BP 129/78; PULSE 81; RESP 18; TEMP 36.2; O2SAT 96; BMI 37.7
[2024-04-29] MEDS: LACTATED RINGERS 1000ML 1,000 ML 25 ML IV (11:05)
[2024-04-29 11:41] VITALS: O2SAT 98
--- NOTE | 2024-04-29 11:48 | P.PNANES_ITS ---
[facility] Disclaimer: The information contained in this section may have been updated after the patient was seen, as this information can be updated by other users. Medical History Acid reflux Testosterone deficiency in male Os trigonum syndrome Injury of right heel Hepatosplenomegaly Surgical History History of surgical procedure on mouth History of appendectomy Social History Smoking Status: Never smoker alcohol intake: never substance use type: denies use current occupational status: employed Travel in the last 8 weeks: None [facility] Anesthesia Checklist Patient Identification Patient Identification: Arm Band Structural Data Admitted From: Home Planned Operative Procedure/s: EGD/Colonoscopy Consent for Planned Operative Procedure(s) Verified: Yes Verified Documents: Surgical Consent and History and Physical NPO Status Verified Time NPO: 00:00 Additional verifications Anesthesia Reactions: No Airway Assessment Mallampati Score:: Class II C-Spine Mobility Assessed: Yes TMJ Mobility Assessed: Yes Dentition: Good Dentition Neurological Assessment Level of Consciousness: Awake, Alert and Appropriate Anesthesia Plan Anesthesia Risk discussed: Yes Anesthesia Plan: Verified ASA Class: II Anesthesia Type: MAC
[2024-04-29 12:07] VITALS: BP 114/74; PULSE 79; RESP 18; TEMP 36.3; O2SAT 93
--- NOTE | 2024-04-29 12:08 | HMH.SCOPE ---
Procedure: Date: 04/29/24 Patient Date of :: 1995 Procedure Performed:: EGD Indications:: The patient is a 28-year-old who presents for EGD evaluation of chronic heartburn and chest pain. Performing Provider:: Ayan Yoon MD Referring Provider:: Shellie Richmond APRN Sedation:: See RN records Procedure:: The gastroscope was gently passed through the incisoral orifice into the oral cavity and under direct visualization the esophagus was intubated. The endoscope was passed down the esophagus, through the stomach, and into the duodenum. Color, texture, mucosa, and anatomy of the esophagus, stomach, and duodenum were carefully examined with the scope. Findings:: The esophagus appeared normal. Biopsies were obtained with a cold forceps for histology. There was antral erosive gastritis. Biopsies were taken with a cold forceps from the antrum and body. Examined duodenum appeared normal. Biopsies were obtained with a cold forceps for histology. Impression: Distal erosive gastritis Recommendations:: Await pathology result Avoid NSAIDs when possible Patient was recently prescribed a PPI which has helped with chest pain symptom. Complications:: None Estimated blood obtained (mL): 0 Colonoscopy Component Colonoscopy Component Was a colonoscopy performed during today's procedure?: No
--- NOTE | 2024-04-29 12:11 | HMH.SCOPE ---
Procedure: Date: 04/29/24 Patient Date of :: 1995 Procedure Performed:: Colonoscopy Indications:: The patient is a 28-year-old who presents for colonoscopy evaluation of left lower quadrant abdominal pain. The patient reports abdominal pain is worse with sitting for extended period time, especially with driving. Abdominal pain is not worse after eating. There has been no change in bowel habits. Performing Provider:: Ayan Yoon MD Referring Provider:: Shellie Richmond APRN Sedation:: See RN records Procedure:: After placing the patient in the left lateral decubitus position, the colonoscopy was gently inserted into the rectum and under direct visualization advanced to the cecum which was identified by transillumination in the right lower quadrant, identification of the ileocecal valve, appendiceal orifice, and cecal strap. Color, texture, mucosa, and anatomy of the colon were carefully examined with the scope. Findings:: There was a sessile polyp 6 mm in size in the sigmoid colon. The polyp was removed with cold snare polypectomy. The polyp was completely removed and retrieved. The remaining colon appeared normal. On retroflexion view small internal hemorrhoids were seen in the rectum. Impression: Polyp of sigmoid colon Recommendations:: Await pathology results Will most likely recommend a repeat colonoscopy in 3 years Follow-up with referring provider as previously scheduled Complications:: None Estimated blood obtained (mL): 0 Colonoscopy Component Colonoscopy Component Was a colonoscopy performed during today's procedure?: Yes Recommended follow up colonoscopy of at least 10 years?: Yes
[2024-04-29 12:17] VITALS: BP 113/74; PULSE 72; RESP 16; O2SAT 93
[2024-04-29 12:27] VITALS: BP 114/70; PULSE 76; RESP 16; O2SAT 95
[2024-04-29 12:36] VITALS: BP 113/74; PULSE 74; RESP 16; O2SAT 96
== END 2024-04-29 12:44 | disposition home or self-care (01) ==
PROVIDERS: PCP Physician Assistant; Visit Provider Internal Medicine
PROC: 0DJ08ZZ Inspection of Upper Intestinal Tract, Via Natural or Artificial Opening Endoscopic (ICD-10-PCS; CPT 43235; principal; 2024-04-29 11:30)
DX: K21.9 Gastro-esophageal reflux disease without esophagitis (principal); R10.9 Unspecified abdominal pain; K29.00 Acute gastritis without bleeding; D12.5 Benign neoplasm of sigmoid colon
CPT/HCPCS: 43239; 45385; J2704; J7120

== ENCOUNTER 2024-05-06 19:01 | Emergency (ER) | payer OTHER, SELFPAY ==
[2024-05-06 19:15] VITALS: BP 132/84; PULSE 91; RESP 20; TEMP 37.3; O2SAT 95; BMI 36.8
--- NOTE | 2024-05-06 19:17 | EXP.UTC ---
Discharge Plan Disposition Patient Disposition: Home, Self-Care Condition: Good Prescriptions Prescriptions: New clindamycin HCl 300 mg capsule 300 mg PO Q8H Qty: 30 0RF No Action testosterone [AndroGel] 20.25 mg/1.25 gram (1.62 %) gel in metered-dose pump 2 pump topical DAILY 30 Days Qty: 75 3RF Rx Instructions: Apply to shoulder and upper chest covered by undershirt when dry Referrals Follow up/Referrals: Shellie Richmond PA [Primary Care Provider] - See instructions Activity Restrictions/Add. Instructions Additional Instructions/Restrictions: Drink plenty of fluids. Take tylenol or ibuprofen for pain or fever. Take the medications as directed. Follow up with your regular doctor. Follow up with your dentist. Please call them in the morning to get a follow up appointment there. GO TO THE ER FOR ANY WORSENING SYMPTOMS Clinical Impressions Clinical Impression: Blister (nonthermal) of oral cavity, initial encounter Instructions Patient Instructions: DI for Mouth Pain Print Language Print Language: Palauan Discharge ED Provider: Reynaldo Styles [facility] General Stated complaint: pain in inside top of mouth Time Seen by Provider: 05/06/24 19:16 History of Present Illness Provider Complaint: He states that for the past 2 days he has had a blister on the roof of his mouth. He denies any injury. He has been exposed to strep throat. He is also concerned that this may be a dental abscess because he has multiple decayed teeth. Related Data Previous Rx's ?Medication ?Instructions ?Recorded testosterone (AndroGel) 2 pump topical DAILY 30 days #75 03/23/24 grams clindamycin HCl 300 mg capsule 300 mg PO Q8H #30 caps 05/06/24 Allergies Allergy/AdvReac Type Severity Reaction Status Date / Time Penicillins [PENICILLINS] Allergy Mild Hives Verified 04/29/24 11:03 [facility] Disclaimer: The information contained in this section may have been updated after the patient was seen, as this information can be updated by other users. Medical History (Updated 05/06/24 @ 19:45 by Reynaldo Styles APRN) Acid reflux Testosterone deficiency in male Os trigonum syndrome Injury of right heel Hepatosplenomegaly Surgical History History of surgical procedure on mouth History of appendectomy Social History Smoking Status: Current every day smoker tobacco type: cigarettes packs per day: 1 and smokeless tobacco alcohol intake: never substance use type: denies use current occupational status: employed Travel in the last 8 weeks: None ROS Obtained: Yes All systems reviewed & no additional complaints except as documented Constitutional Constitutional: Denies chills and Denies fever(s) Eyes Eyes: Denies eye discharge ENT Ears, Nose, Mouth, and Throat: Denies dizziness, Denies otalgia and Denies sore throat Cardiovascular Cardiovascular: Denies chest pain Respiratory Respiratory: Denies shortness of breath, Denies chest congestion, Denies cough, Denies stridor and Denies wheezing Gastrointestinal Gastrointestingal: Denies nausea or vomiting Musculoskeletal Musculoskeletal: Reports system reviewed and no additional complaints, except as documented and Denies arthralgias Integumentary/Breasts Skin/Breast: Denies rash Neurologic Neurologic: Denies dizziness and Denies paresthesias Allergic/Immunologic Allergic/Immunologic: Denies wheezing Physical Exam General General appearance: alert and in no apparent distress Head Head exam: atraumatic, normocephalic and normal inspection Eye Eye exam: Present normal appearance, PERRL and EOMI ENT ENT exam: Present mucous membranes moist, TM's normal bilaterally and normal external ear exam Expanded ENT Exam Nose exam: Absent sinus tenderness Nasal speculum exam: Bilateral: normal Mouth exam: Present normal external inspection; Absent drooling Teeth exam: Present dental caries, fractured tooth #, dental tenderness # and gingival swelling Throat exam: Present normal inspection Neck Neck exam: Present normal inspection, full ROM and trachea midline; Absent meningismus or lymphadenopathy Chest Chest inspection: Present normal inspection and symmetric chest wall rise; Absent tenderness Respiratory Respiratory exam: Present normal lung sounds bilaterally; Absent respiratory distress Cardiovascular Cardiovascular exam: Present regular rate and normal rhythm; Absent JVD Abdominal Exam Abdominal exam: Present soft and normal bowel sounds; Absent distention, tenderness or guarding Extremities Exam Extremities exam: Present normal inspection, full ROM and normal capillary refill; Absent calf tenderness Back Exam Back exam: Present normal inspection; Absent tenderness Neurological Exam Neurological exam: Present alert and oriented X3 Psychiatric Psychiatric exam: Present normal affect and normal mood Skin Skin exam: Present warm, dry, intact and normal color Lymphatic Lymphatic Findings: no adenopathy Medical Decision Making Medical Records Medical records reviewed: No I reviewed the patient's medical records. Bennie Inquiry Pt receiving controlled substance: No Lab Data Lab results reviewed: Yes I reviewed the patient's lab results.
[2024-05-06 19:49] VITALS: BP 132/84; PULSE 91; RESP 20; TEMP 37.3; O2SAT 95
== END 2024-05-06 19:55 | disposition home or self-care (01) ==
PROVIDERS: Emergency Provider Nurse Practitioner Family; PCP Physician Assistant
DX: S00.522A Blister (nonthermal) of oral cavity, initial encounter (principal); X58.XXXA Exposure to other specified factors, initial encounter; F17.210 Nicotine dependence, cigarettes, uncomplicated; Z20.818 Contact with and (suspected) exposure to other bacterial communicable diseases
CPT/HCPCS: 99212; 99214; G0463

== ENCOUNTER 2024-05-29 15:18 | Emergency (ER) | payer MEDICAID, SELFPAY ==
[2024-05-29 15:34] VITALS: BP 131/89; PULSE 90; RESP 16; TEMP 36.8; O2SAT 97; BMI 37.7
--- NOTE | 2024-05-29 15:38 | EXP.UTC ---
Discharge Plan Disposition Patient Disposition: Home, Self-Care Prescriptions Prescriptions: New omeprazole magnesium [Prilosec OTC] 20 mg tablet,delayed release (DR/EC) 20 mg PO DAILY Qty: 30 0RF ondansetron 4 mg Tablet,Disintegrating 4 mg PO Q8H PRN (Reason: Nausea) Qty: 12 0RF No Action testosterone [AndroGel] 20.25 mg/1.25 gram (1.62 %) gel in metered-dose pump 2 pump topical DAILY 30 Days Qty: 75 3RF Rx Instructions: Apply to shoulder and upper chest covered by undershirt when dry omeprazole magnesium [Prilosec OTC] 20 mg tablet,delayed release (DR/EC) 20 mg PO BID 14 Days Qty: 28 0RF clarithromycin 500 mg tablet 500 mg PO BID 14 Days Qty: 28 0RF metronidazole 500 mg tablet 500 mg PO BID Qty: 28 0RF clindamycin HCl 300 mg capsule 300 mg PO Q8H Qty: 30 0RF Referrals Follow up/Referrals: Shellie Richmond PA [Primary Care Provider] - See instructions Activity Restrictions/Add. Instructions Additional Instructions/Restrictions: Drink plenty of fluids. Take tylenol or ibuprofen for pain. Take the medications as directed. Follow up with your regular doctor. GO TO THE ER FOR ANY WORSENING SYMPTOMS Clinical Impressions Clinical Impression: Abdominal pain Instructions Patient Instructions: DI for Abdominal Pain-Adult, Ondansetron, Omeprazole Print Language Print Language: [place] Island[place] Discharge ED Provider: Reynaldo Styles [facility] General Stated complaint: RT side abd pain Mode of Arrival: Ambulatory Source of Information: Patient Limitations: No Limitations Time Seen by Provider: 05/29/24 15:38 Description of Symptoms (Recalled from Triage Doc. by RN): Patient reports right sided abdomen pain and back pain that started last night. HEENT Symptoms (Recalled from RN notes): No Resp Symptoms (Recalled from RN notes): No Skin Symptoms (Recalled from RN notes): No MS Symptoms (Recalled from RN notes): No Functional Status (Recalled from RN notes): wnl History of Present Illness Provider Complaint: He states that he has had right upper quadrant abdominal pain that started yesterday evening. The pain comes and goes. Eating seemed to make it a little better. He denies any fever/chills. He is currently on metronidazole and clarithromycin for h. pylori infection. He started these 2 medications 1 week ago. He has had nausea, but no vomiting or diarrhea. Related Data Previous Rx's ?Medication ?Instructions ?Recorded testosterone (AndroGel) 2 pump topical DAILY 30 days #75 03/23/24 grams clindamycin HCl 300 mg capsule 300 mg PO Q8H #30 caps 05/06/24 clarithromycin 500 mg tablet 500 mg PO BID 14 days #28 tabs 05/15/24 metronidazole 500 mg tablet 500 mg PO BID #28 tabs 05/15/24 omeprazole magnesium 20 mg 20 mg PO BID 14 days #28 tabs 05/15/24 tablet,delayed release (Prilosec OTC) omeprazole magnesium 20 mg 20 mg PO DAILY #30 tabs 05/29/24 tablet,delayed release (Prilosec OTC) ondansetron 4 mg disintegrating 4 mg PO Q8H PRN Nausea #12 tabs 05/29/24 tablet Allergies Allergy/AdvReac Type Severity Reaction Status Date / Time Penicillins [PENICILLINS] Allergy Mild Hives Verified 04/29/24 11:03 Worker's Comp Is this a Worker's Comp case?: No [facility] Disclaimer: The information contained in this section may have been updated after the patient was seen, as this information can be updated by other users. Medical History (Updated 05/29/24 @ 16:49 by Reynaldo Styles APRN) Acid reflux Testosterone deficiency in male Os trigonum syndrome Injury of right heel Hepatosplenomegaly Surgical History History of surgical procedure on mouth History of appendectomy Social History Smoking Status: Current every day smoker tobacco type: cigarettes packs per day: 1 and smokeless tobacco alcohol intake: never substance use type: denies use current occupational status: employed Travel in the last 8 weeks: None ROS Obtained: Yes All systems reviewed & no additional complaints except as documented Constitutional Constitutional: Denies chills, Denies fever(s) and Reports poor appetite ENT Ears, Nose, Mouth, and Throat: Denies dizziness and Denies sore throat Cardiovascular Cardiovascular: Denies dyspnea Respiratory Respiratory: Denies chest congestion, Denies cough and Denies dyspnea Gastrointestinal Gastrointestingal: Reports as per HPI Musculoskeletal Musculoskeletal: Denies arthralgias Integumentary/Breasts Skin/Breast: Denies rash Neurologic Neurologic: Denies dizziness Physical Exam General General appearance: alert and in no apparent distress Head Head exam: atraumatic and normocephalic Eye Eye exam: Present normal appearance, PERRL and EOMI ENT ENT exam: Present normal exam, normal oropharynx, mucous membranes moist, TM's normal bilaterally and normal external ear exam Neck Neck exam: Present normal inspection, full ROM and trachea midline; Absent tenderness, meningismus or lymphadenopathy Chest Chest inspection: Present normal inspection and symmetric chest wall rise; Absent tenderness, rash or abscess Respiratory Respiratory exam: Present normal lung sounds bilaterally; Absent respiratory distress, wheezes or stridor Cardiovascular Cardiovascular exam: Present regular rate and normal rhythm; Absent irregular rhythm, systolic murmur, diastolic murmur or JVD Abdominal Exam Abdominal exam: Present soft and hyperactive bowel sounds; Absent distention, tenderness, guarding, rebound, rigidity, psoas sign, obturator sign, heel tap sign, Rico's sign, Rovsing's sign or tenderness at McBurney's Point Extremities Exam Extremities exam: Present normal inspection and full ROM; Absent tenderness Back Exam Back exam: Present normal inspection and full ROM; Absent tenderness, CVA tenderness (R) or CVA tenderness (L) Neurological Exam Neurological exam: Present alert, oriented X3 and CN II-XII intact Psychiatric Psychiatric exam: Present normal affect and normal mood Skin Skin exam: Present warm, dry, intact and normal color Lymphatic Lymphatic Findings: no adenopathy Medical Decision Making Medical Records Medical records reviewed: No I reviewed the patient's medical records. Bennie Inquiry Pt receiving controlled substance: No Vital Signs: 05/29/24 15:34 Temperature 98.2 F Temperature Source Oral Pulse Rate [Radial] 90 Respiratory Rate 16 Blood Pressure [Right Arm] 131/89 Blood Pressure Mean [Right Arm] 103 Blood Pressure Source [Right Arm] Automatic Cuff Blood Pressure Position [Right Arm] Sitting 02 Sat by Pulse Oximetry 97 Oxygen Delivery Method Room Air Lab Data 05/29/24 16:10 05/29/24 16:10
[2024-05-29 15:40] LABS: Apearance,Urine Clear (Clear); Bilirubin,Urine 1+ (Negative); Blood, Urine Negative (Negative); Color,Urine Amber (Yellow); Glucose,Urine (UA) Negative (Negative); Ketones,Urine Negative (Negative); Protein,Urine 3+ (Negative); UTC Leukocyte Esterase,Urine Negative (Negative); UTC Nitrate,Urine Negative (Negative); Urobilinogen,Urine 1 EU/dl (0.2)
[2024-05-29 16:18] LABS: Basophils # 0.1 K/mm3 (0-0.2); Basophils % 1.2 % (0.1-2.0); Eosinophils # 0.2 K/mm3 (0.0-0.4); Eosinophils % 2.6 % (0.1-12.0); Hematocrit 51.2 % (42.0-52.0); Hemoglobin 17.5 g/dL (14.1-18.0); Lymphocytes # 1.7 K/mm3 (0.7-4.5); Mean Corpuscular HGB Conc 34.1 g/dL (31.8-35.4); Mean Corpuscular Hemoglobin 29.3 pg (27.0-31.2); Mean Corpuscular Volume 85.9 fl (80-94); Mean Platelet Volume 8.5 fl (7.4-10.4); Monocytes # 0.4 K/mm3 (0.1-1.0); Monocytes % 5.5 % (1.7-9.3); Neutrophils # 4.7 K/mm3 (1.8-7.8); Neutrophils % 66.6 % (37.0-80.0); Platelet Count 225 K/mm3 (142-424); Red Blood Count 5.97 M/mm3 (4.60-6.20); Red Cell Distribution Width 14.1 % (11.5-17.5)
[2024-05-29 16:24] LABS: Albumin Level 4.5 g/dl (3.5-5.0); Chloride 109 mmol/L (98-107)
[2024-05-29 16:25] LABS: Potassium 4.2 mmoL/L (3.5-5.1); Sodium 139 mmol/L (136-145)
[2024-05-29 16:27] LABS: Amylase 74 U/L (30-110); Anion Gap 11.2 mEq/L (5-15); Blood Urea Nitrogen 13 mg/dl (9-20); Carbon Dioxide 23 mmol/L (22.0-30.0); Creatinine Clearance Estimated 230 mL/min (50-200); Estimated Glomerular Filt Rate 100 ml/min (>60); GFR (African American) 122 ML/MIN (>60)
[2024-05-29 16:28] LABS: Alanine Aminotransferase 124 U/L (12-78); Albumin/Globulin Ratio 1.2 (1.1-1.8); Alkaline Phosphatase 71 U/L (38-126); Aspartate Amino Transferase 93 U/L (17-59); Bilirubin,Total 0.9 mg/dl (0.2-1.3); Calcium 9.1 mg/dl (8.4-10.2); Globulin 3.8 g/dL (1.3-3.2); Glucose 105 mg/dl (74-100); Lipase 48 U/L (23-300); Total Protein,Serum 8.3 g/dl (6.3-8.2)
[2024-05-29 16:54] VITALS: BP 131/89; PULSE 90; RESP 16; TEMP 36.8; O2SAT 97
== END 2024-05-29 16:54 | disposition home or self-care (01) ==
PROVIDERS: Emergency Provider Nurse Practitioner Family; PCP Physician Assistant
DX: R10.11 Right upper quadrant pain (principal); R11.0 Nausea
CPT/HCPCS: 80053; 81003; 82150; 83690; 85025; 99212; 99214; G0463

== ENCOUNTER 2024-06-10 13:49 | Outpatient (CLI) | payer MEDICAID, SELFPAY ==
[2024-06-10 12:53] LABS: Hemoglobin A1C 5.1 % (4.0-6.0)
== END 2024-06-10 23:59 | disposition home or self-care (01) ==
LOC: LAB.DROPOF 13:49
PROVIDERS: PCP Internal Medicine; Visit Provider Internal Medicine
DX: R73.9 Hyperglycemia, unspecified (principal)
CPT/HCPCS: 83036

== ENCOUNTER 2024-07-03 12:22 | Outpatient (CLI) | payer MEDICAID, SELFPAY ==
[2024-07-03 12:53] LABS: Basophils # 0.1 K/mm3 (0-0.2); Basophils % 1.1 % (0.1-2.0); Eosinophils # 0.2 K/mm3 (0.0-0.4); Eosinophils % 2.1 % (0.1-12.0); Hematocrit 47.8 % (42.0-52.0); Hemoglobin 17.1 g/dL (14.1-18.0); Lymphocytes % 28.2 % (10-50); Mean Corpuscular HGB Conc 35.7 g/dL (31.8-35.4); Mean Corpuscular Volume 81.2 fl (80-94); Mean Platelet Volume 8.5 fl (7.4-10.4); Monocytes # 0.4 K/mm3 (0.1-1.0); Monocytes % 5.4 % (1.7-9.3); Neutrophils # 4.5 K/mm3 (1.8-7.8); Neutrophils % 63.1 % (37.0-80.0); Platelet Count 179 K/mm3 (142-424); Red Blood Count 5.89 M/mm3 (4.60-6.20); Red Cell Distribution Width 14.2 % (11.5-17.5); White Blood Count 7.2 K/mm3 (4.8-10.8)
[2024-07-04 10:23] LABS: Sex Hormone Binding Globulin 14.2 nmol/L (16.5-55.9); Testosterone,Total 273 ng/dL (264-916)
== END 2024-07-03 23:59 | disposition home or self-care (01) ==
LOC: LAB 12:25
PROVIDERS: PCP Internal Medicine; Visit Provider Urology
DX: N45.1 Epididymitis (principal)
CPT/HCPCS: 36415; 84270; 84403; 85025

== ENCOUNTER 2024-07-07 09:36 | Outpatient (CLI) | payer MEDICAID, SELFPAY ==
[2024-07-06 15:31] LABS: Microscopic, Urine URINE MICROSCOPIC (MICROSCOPIC)
[2024-07-06 16:06] LABS: Appearance,Urine CLEAR (Clear); Bilirubin,Urine Negative (Negative); Blood, Urine TRACE-I (Negative); Color,Urine YELLOW (Yellow); Glucose,Urine (UA) Negative (Negative); Ketones,Urine Negative (Negative); Leukocyte Esterase,Urine Negative (Negative); Nitrate,Urine Negative (Negative); Protein,Urine 1+ (Negative); Specific Gravity, Urine 1.025 (1.005-1.030); Urobilinogen,Urine 0.2 EU/dl (0.2)
[2024-07-06 17:12] LABS: Bacteria,Urine 1+ /lpf; WBC,Urine Occasional #/hpf (0-3)
== END 2024-07-07 23:59 | disposition home or self-care (01) ==
LOC: LAB.DROPOF 09:36
PROVIDERS: PCP Urology; Visit Provider Urology
DX: N39.0 Urinary tract infection, site not specified (principal)
CPT/HCPCS: 81001

== ENCOUNTER 2024-07-16 17:50 | Emergency (ER) | payer MEDICAID, SELFPAY ==
[2024-07-16 18:00] VITALS: BP 134/90; PULSE 82; RESP 20; TEMP 36.8; O2SAT 97; BMI 36.1
--- NOTE | 2024-07-16 18:10 | EXP.UTC ---
Discharge Plan Disposition Patient Disposition: Home, Self-Care Condition: Good Prescriptions Prescriptions: New ondansetron 4 mg Tablet,Disintegrating 4 mg PO Q8H PRN (Reason: Nausea) Qty: 12 0RF famotidine 40 mg tablet 40 mg PO HS 30 Days Qty: 30 0RF No Action methocarbamol 500 mg tablet 500 mg PO TID Patient Comments: TAKE TWO TABLETS BY MOUTH THREE TIMES DAILY try one tablet AT a time THEN increase TO two TABLETS if needed MAY CAUSE DROWSINESS bupropion HCl 150 mg tablet sustained-release 12 hr 150 mg PO DAILY Patient Comments: TAKE ONE TABLET BY MOUTH TWICE DAILY amlodipine 5 mg tablet 5 mg PO DAILY Patient Comments: TAKE ONE TABLET BY MOUTH EVERY DAY testosterone 20.25 mg/1.25 gram (1.62 %) gel in metered-dose pump 20.25 mg topical DAILY Referrals Follow up/Referrals: Tao Rizvi DO [Primary Care Provider] - See instructions Activity Restrictions/Add. Instructions Additional Instructions/Restrictions: Drink plenty of fluids. Take tylenol or ibuprofen for pain or fever. Take the medications as directed. Follow up with your regular doctor. GO TO THE ER FOR ANY WORSENING SYMPTOMS Clinical Impressions Clinical Impression: Gastritis, Gastroenteritis Instructions Patient Instructions: Viral Gastroenteritis, DI for Viral Gastroenteritis -- Adult, Ondansetron, Famotidine Print Language Print Language: Luxembourger Discharge ED Provider: Reynaldo Styles [facility] General Stated complaint: top of belly hurts,nausea Mode of Arrival: Ambulatory Source of Information: Patient Limitations: No Limitations Time Seen by Provider: 07/16/24 18:10 Description of Symptoms (Recalled from Triage Doc. by RN): PATIENT C/O PAIN TO UPPER ABDOMEN THAT STARTED TODAY HEENT Symptoms (Recalled from RN notes): No Resp Symptoms (Recalled from RN notes): No Skin Symptoms (Recalled from RN notes): No MS Symptoms (Recalled from RN notes): No Functional Status (Recalled from RN notes): WNL History of Present Illness Provider Complaint: He states that he has had epigastric pain and n/v since yesterday. He has been exposed to viral gastroenteritis in his home. Related Data Home Medications ?Medication ?Instructions ?Recorded ?Confirmed amlodipine 5 mg tablet 5 mg PO DAILY 07/16/24 07/16/24 bupropion HCl 150 mg tablet,12 hr 150 mg PO DAILY 07/16/24 07/16/24 sustained-release methocarbamol 500 mg tablet 500 mg PO TID 07/16/24 07/16/24 testosterone 20.25 mg topical DAILY 07/16/24 07/16/24 Previous Rx's ?Medication ?Instructions ?Recorded famotidine 40 mg tablet 40 mg PO HS 30 days #30 tabs 07/16/24 ondansetron 4 mg disintegrating 4 mg PO Q8H PRN Nausea #12 tabs 07/16/24 tablet Allergies Allergy/AdvReac Type Severity Reaction Status Date / Time Penicillins [PENICILLINS] Allergy Mild Hives Verified 07/08/24 11:12 Worker's Comp Is this a Worker's Comp case?: No [facility] Disclaimer: The information contained in this section may have been updated after the patient was seen, as this information can be updated by other users. Medical History Acid reflux Hepatosplenomegaly Hypogonadism Injury of right heel Os trigonum syndrome Screening for hypertension Testosterone deficiency in male Surgical History History of appendectomy History of surgical procedure on mouth Social History Smoking Status: Former smoker tobacco type: cigarettes packs per day: 1 and smokeless tobacco alcohol intake: never substance use type: denies use current occupational status: employed Travel in the last 8 weeks: None ROS Obtained: Yes All systems reviewed & no additional complaints except as documented Constitutional Constitutional: Denies chills, Denies fever(s) and Reports poor appetite ENT Ears, Nose, Mouth, and Throat: Denies dizziness and Denies sore throat Cardiovascular Cardiovascular: Denies dyspnea Respiratory Respiratory: Denies chest congestion, Denies cough and Denies dyspnea Gastrointestinal Gastrointestingal: Reports as per HPI Musculoskeletal Musculoskeletal: Denies arthralgias Integumentary/Breasts Skin/Breast: Denies rash Neurologic Neurologic: Denies dizziness Physical Exam General General appearance: alert and in no apparent distress Head Head exam: atraumatic and normocephalic Eye Eye exam: Present normal appearance, PERRL and EOMI ENT ENT exam: Present normal exam, normal oropharynx, mucous membranes moist, TM's normal bilaterally and normal external ear exam Neck Neck exam: Present normal inspection, full ROM and trachea midline; Absent tenderness, meningismus or lymphadenopathy Chest Chest inspection: Present normal inspection and symmetric chest wall rise; Absent tenderness, rash or abscess Respiratory Respiratory exam: Present normal lung sounds bilaterally; Absent respiratory distress, wheezes or stridor Cardiovascular Cardiovascular exam: Present regular rate and normal rhythm; Absent irregular rhythm, systolic murmur, diastolic murmur or JVD Abdominal Exam Abdominal exam: Present soft and hyperactive bowel sounds; Absent distention, tenderness, guarding, rebound, rigidity, psoas sign, obturator sign, heel tap sign, Rico's sign, Rovsing's sign or tenderness at McBurney's Point Extremities Exam Extremities exam: Present normal inspection and full ROM; Absent tenderness Back Exam Back exam: Present normal inspection and full ROM; Absent tenderness, CVA tenderness (R) or CVA tenderness (L) Neurological Exam Neurological exam: Present alert, oriented X3 and CN II-XII intact Psychiatric Psychiatric exam: Present normal affect and normal mood Skin Skin exam: Present warm, dry, intact and normal color Lymphatic Lymphatic Findings: no adenopathy Medical Decision Making Medical Records Medical records reviewed: No I reviewed the patient's medical records. Screening: Per USPSTF and CDC recommendations, given the prevalence of disease in our region, it is our hospital?s policy to screen for HIV and viral Hepatitis for all patients aged 18 and over and those with ongoing risk factors. Bennie Inquiry Pt receiving controlled substance: No Vital Signs: 07/16/24 18:00 Temperature 98.2 F Temperature Source Oral Pulse Rate [Left Brachial] 82 Respiratory Rate 20 Blood Pressure [Left Arm] 134/90 Blood Pressure Mean [Left Arm] 104 Blood Pressure Source [Left Arm] Automatic Cuff Blood Pressure Position [Left Arm] Sitting 02 Sat by Pulse Oximetry 97 Oxygen Delivery Method Room Air Lab Data Lab results reviewed: Yes I reviewed the patient's lab results. 07/16/24 18:40 07/16/24 18:40
[2024-07-16 18:49] LABS: Basophils # 0.1 K/mm3 (0-0.2); Basophils % 1.3 % (0.1-2.0); Eosinophils # 0.2 K/mm3 (0.0-0.4); Eosinophils % 2.7 % (0.1-12.0); Hematocrit 48.8 % (42.0-52.0); Hemoglobin 17.3 g/dL (14.1-18.0); Lymphocytes # 1.8 K/mm3 (0.7-4.5); Lymphocytes % 21.3 % (10-50); Mean Corpuscular HGB Conc 35.5 g/dL (31.8-35.4); Mean Corpuscular Volume 81.6 fl (80-94); Monocytes # 0.5 K/mm3 (0.1-1.0); Neutrophils # 5.7 K/mm3 (1.8-7.8); Neutrophils % 68.7 % (37.0-80.0); Platelet Count 225 K/mm3 (142-424); Red Blood Count 5.98 M/mm3 (4.60-6.20); White Blood Count 8.3 K/mm3 (4.8-10.8)
[2024-07-16 18:55] LABS: Albumin Level 4.6 g/dl (3.5-5.0); Sodium 141 mmol/L (136-145)
[2024-07-16 18:56] LABS: Potassium 4.4 mmoL/L (3.5-5.1)
[2024-07-16 18:58] LABS: Alanine Aminotransferase 103 U/L (12-78); Alkaline Phosphatase 62 U/L (38-126); Amylase 68 U/L (30-110); Aspartate Amino Transferase 56 U/L (17-59); Bilirubin,Total 0.7 mg/dl (0.2-1.3); Blood Urea Nitrogen 12 mg/dl (9-20); Carbon Dioxide 29 mmol/L (22.0-30.0); Creatinine Clearance Estimated 199 mL/min (50-200); Estimated Glomerular Filt Rate 89 ml/min (>60); GFR (African American) 108 ML/MIN (>60)
[2024-07-16 18:59] LABS: Albumin/Globulin Ratio 1.2 (1.1-1.8); Calcium 9.2 mg/dl (8.4-10.2); Globulin 3.8 g/dL (1.3-3.2); Glucose 91 mg/dl (74-100); Lipase 45 U/L (23-300); Total Protein,Serum 8.4 g/dl (6.3-8.2)
[2024-07-16 19:27] LABS: Anion Gap 10.4 mEq/L (5-15); Chloride 106 mmol/L (98-107)
[2024-07-16 19:33] VITALS: BP 134/90; PULSE 82; RESP 20; TEMP 36.8; O2SAT 97
== END 2024-07-16 19:34 | disposition home or self-care (01) ==
PROVIDERS: Emergency Provider Nurse Practitioner Family; PCP Internal Medicine
DX: K52.9 Noninfective gastroenteritis and colitis, unspecified (principal); K29.00 Acute gastritis without bleeding
CPT/HCPCS: 80053; 82150; 83690; 85025; 99213; G0381

== ENCOUNTER 2024-08-14 16:46 | Outpatient (CLI) | payer MEDICAID, SELFPAY ==
[2024-08-14 16:31] LABS: Microscopic, Urine URINE MICROSCOPIC (MICROSCOPIC)
[2024-08-14 16:45] LABS: Appearance,Urine CLEAR (Clear); Bilirubin,Urine Negative (Negative); Blood, Urine 1+ (Negative); Color,Urine YELLOW (Yellow); Glucose,Urine (UA) Negative (Negative); Ketones,Urine Negative (Negative); Leukocyte Esterase,Urine Negative (Negative); Nitrate,Urine Negative (Negative); PH,Urine 6.5 (5.0-8.5); Protein,Urine 2+ (Negative); Specific Gravity, Urine >= 1.030 (1.005-1.030); Urobilinogen,Urine 0.2 EU/dl (0.2)
[2024-08-14 17:05] LABS: Squamous Epithelial Cell,Urine Occasional #/hpf (0-5); WBC,Urine Occasional #/hpf (0-3)
[2024-08-14 17:06] LABS: Bacteria,Urine 1+ /lpf; Mucus,Urine 1+ /lpf
== END 2024-08-14 23:59 | disposition home or self-care (01) ==
LOC: LAB.DROPOF 16:46
PROVIDERS: PCP Internal Medicine; Visit Provider Internal Medicine
DX: R31.9 Hematuria, unspecified (principal)
CPT/HCPCS: 81001; 87086

== ENCOUNTER 2024-08-27 13:49 | Outpatient (CLI) | payer MEDICAID, SELFPAY ==
[2024-08-27 16:25] VITALS: BMI 36.8
== END 2024-08-27 23:59 | disposition home or self-care (01) ==
LOC: DIETICIAN 13:50
PROVIDERS: PCP Internal Medicine; Visit Provider Internal Medicine
DX: E66.9 Obesity, unspecified (principal); Z68.37 Body mass index [BMI] 37.0-37.9, adult
CPT/HCPCS: 97802

== ENCOUNTER 2024-10-27 12:14 | Outpatient (CLI) | payer MEDICAID, SELFPAY ==
--- NOTE | 2024-10-27 12:18 | XR_ITS ---
FINAL REPORT TECHNIQUE: 3 views CLINICAL HISTORY: cervical pain with radiation COMPARISON: None FINDINGS: CERVICAL SPINE: 3 views of the cervical spine were obtained. There is no fracture present. There is mild reversal of the normal cervical lordosis. There are no significant degenerative changes. IMPRESSION: No acute bony abnormality identified. Reviewed, Interpreted and Dictated by Kevin Bauer MD Transcribed by Serena Rosado Authenticated and [facility]
== END 2024-10-27 23:59 | disposition home or self-care (01) ==
LOC: RAD 12:15
PROVIDERS: PCP Internal Medicine; Visit Provider Internal Medicine
DX: M54.2 Cervicalgia (principal)
CPT/HCPCS: 72040

== ENCOUNTER 2024-11-04 17:28 | Emergency (ER) | payer MEDICAID, SELFPAY ==
[2024-11-04 17:46] VITALS: BP 153/100; PULSE 89; RESP 18; TEMP 36.8; O2SAT 97; BMI 35.3
--- NOTE | 2024-11-04 17:57 | ED_ITS ---
Discharge Plan Disposition Patient Disposition: Home, Self-Care Condition: Good Prescriptions Prescriptions: New prednisone 20 mg tablet 40 mg PO DAILY 5 Days Qty: 10 0RF methocarbamol 750 mg tablet 1,500 mg PO TID 5 Days Qty: 30 0RF No Action amlodipine 5 mg tablet See Rx Instructions .ROUTE .COMPLEX Qty: 30 2RF Dose Instruction: TAKE ONE TABLET BY MOUTH EVERY DAY Rx Instructions: TAKE ONE TABLET BY MOUTH EVERY DAY bupropion HCl 200 mg tablet sustained-release 12 hr 200 mg PO BID Qty: 60 2RF testosterone 20.25 mg/1.25 gram (1.62 %) gel in metered-dose pump 20.25 mg topical ONCE Qty: 75 0RF Rx Instructions: Three pumps applied once daily. cyclobenzaprine 5 mg tablet 10 mg PO TID PRN (Reason: muscle spasm) Qty: 30 1RF Rx Instructions: Start with one tablet, may increase to two tablets if one not effective. Referrals Follow up/Referrals: Tao Rizvi DO [Primary Care Provider] - See instructions Activity Restrictions/Add. Instructions Additional Instructions/Restrictions: Call your family doctor to establish care for this visit to the emergency department and schedule follow-up within 48 hours to ensure improvement. If you have any worsening of your condition or any other concerning signs or symptoms, return to the emergency department or your primary care doctor for further evaluation. Prednisone each morning for the next 5 days with plenty of food and water. Robaxin can cause you to feel drowsy. Do not drive, operate heavy machinery, or engage in any activity that may make you tired, fall asleep, and because harm to yourself or others while taking this medication. Clinical Impressions Clinical Impression: Sciatic nerve pain Qualifiers: Laterality: left Qualified Code(s): M54.32 - Sciatica, left side Print Language Print Language: Occitan Discharge ED Provider: Felipe Guerra General Adult HPI <BRADEN Banuelos - Last Filed: 11/04/24 19:33> General Chief complaint: PAIN Stated complaint: LT side abd pain Time Seen by Provider: 11/04/24 17:57 Mode of Arrival: Ambulatory Source of Information: Patient Limitations: No Limitations Description of Symptoms (Recalled from ER Triage Doc. by RN): Pt presents today for evaluation of left hip pain that radiates down to his left leg x 3days. History of Present Illness HPI narrative: Patient presents for evaluation of left lumbar pain with radiation of pain down his left leg. Patient has known degenerative spine disease and has been seen recently for this complaint by his PCP and PT has been ordered. Patient states that he has not heard from physical therapy and is unable to reach his PCP so he came to the ER for evaluation. Patient recently had a change to cyclobenzaprine that is not helping. He has not been on steroids recently denies any trauma. He denies any loss of motor or sensory in the left lower extremity denies any saddle anesthesia. Denies any chest pain fever chills hemoptysis hematochezia melena hematemesis dysuria hematuria nausea vomiting diarrhea. Related Data Previous Rx's ?Medication ?Instructions ?Recorded amlodipine 5 mg tablet See Rx Instructions .Route 10/20/24 .COMPLEX #30 tabs bupropion HCl 200 mg tablet,12 hr 200 mg PO BID #60 ea 10/20/24 sustained-release testosterone 20.25 mg topical ONCE #75 grams 10/21/24 cyclobenzaprine 5 mg tablet 10 mg (2 x 5 mg) PO TID PRN muscle 10/30/24 spasm #30 tabs methocarbamol 750 mg tablet 1,500 mg (2 x 750 mg) PO TID 5 11/04/24 days #30 tabs prednisone 20 mg tablet 40 mg (2 x 20 mg) PO DAILY 5 days 11/04/24 #10 tabs Allergies Allergy/AdvReac Type Severity Reaction Status Date / Time Penicillins (PENICILLINS) Allergy Mild Hives Verified 10/30/24 12:57 [facility] <BRADEN Banuelos - Last Filed: 11/04/24 19:33> [facility] Disclaimer: The information contained in this section may have been updated after the patient was seen, as this information can be updated by other users. Medical History Hypogonadism Screening for hypertension Acid reflux Testosterone deficiency in male Os trigonum syndrome Injury of right heel Hepatosplenomegaly Surgical History History of surgical procedure on mouth History of appendectomy Social History Smoking Status: Never smoker alcohol intake: never substance use type: denies use current occupational status: employed Travel in the last 8 weeks: None Have you lived/traveled outside [place] in past 30 days?: No Contact w/someone who lives/traveled outside [place] past 30 days?: No Exposure to someone with infectious disease in past 14 days?: No Do you have a fever (greater than 100.4 F or 38 C)?: No Have you tested positive for COVID-19: No Exposed to someone with COVID-19 in past 14 days?: No Do you have a sore throat?: No Do you have a cough?: No Do you have any weakness?: No Do you have any diarrhea?: No Are you experiencing any unusual bleeding?: No Do you have any muscle aches/pain?: No Do you have any abdominal pain?: No Are you experiencing loss of taste or smell?: No Other Medical History Have you received the Flu Vaccine for this season: Yes Have you received the Pneumonia Vaccine: No <BRADEN Banuelos - Last Filed: 11/04/24 19:33> ROS Obtained: Yes Systems reviewed as appropriate & no additional complaints except as documented Physical Exam <BRADEN Banuelos - Last Filed: 11/04/24 19:33> General General appearance: alert and in no apparent distress Respiratory Respiratory exam: Present normal lung sounds bilaterally Cardiovascular Cardiovascular exam: Present regular rate Neurological Exam Neurological exam: Present alert and oriented X3 Medical Decision Making <BRADEN Banuelos - Last Filed: 11/04/24 19:33> Medical Records Medical records reviewed: Yes I reviewed the patient's medical records. Screening: Per USPSTF and CDC recommendations, given the prevalence of disease in our [facility], it is our hospital?s policy to screen for HIV and viral Hepatitis for all patients aged 18 and over and those with ongoing risk factors. Bennie Inquiry Pt receiving controlled substance: No Vital Signs: 11/04/24 17:46 11/04/24 19:32 Temperature 98.3 F 97.9 F Temperature Source Oral Oral Pulse Rate 74 Pulse Rate [Right] 89 Respiratory Rate 18 16 Blood Pressure 118/72 Blood Pressure [Right Arm] 153/100 H Blood Pressure Mean [Right Arm] 117 Blood Pressure Source Automatic Cuff Blood Pressure Source [Right Arm] Automatic Cuff Blood Pressure Position Supine Blood Pressure Position [Right Arm] Sitting 02 Sat by Pulse Oximetry 97 Oxygen Delivery Method Room Air Room Air Lab Data Lab results reviewed: Yes I reviewed the patient's lab results. Orders (Tests/Meds): ED MEDICATIONS Discontinued Medications Generic Name Dose Route Start Last Admin Trade Name Xiomara PRN Reason Stop Dose Admin Acetaminophen 1,000 mg 11/04/24 17:59 11/04/24 18:08 Acetaminophen 500mg Tab PO 11/04/24 18:00 1,000 mg ONCE ONE Administration Diphenhydramine HCl 50 mg 11/04/24 18:21 11/04/24 18:31 Diphenhydramine 25mg Capsule PO 11/04/24 18:22 50 mg ONCE ONE Administration Ibuprofen 800 mg 11/04/24 17:59 11/04/24 18:08 Ibuprofen 400 Mg Tablet PO 11/04/24 18:00 800 mg ONCE ONE Administration Lidocaine 1 each 11/04/24 17:59 11/04/24 18:08 Lidocaine 5% Transdermal Patch TP 11/04/24 18:00 1 each ONCE ONE Administration Methocarbamol 500 mg 11/04/24 17:59 11/04/24 18:08 Methocarbamol 500mg Tablet PO 11/04/24 18:00 500 mg ONCE ONE Administration Prednisone 60 mg 11/04/24 17:59 11/04/24 18:08 Prednisone 20mg Tab PO 11/04/24 18:00 60 mg ONCE ONE Administration Medical Decision Narrative: In summary patient is a 29-year-old male who presents to the emergency department for evaluation of sciatica. Patient is initially hypertensive 153/100 pulse 89 respiratory rate 18 temperature 98.3 satting at 97% on room air upon arrival, afebrile at 98.3. Physical exam is remarkable for no midline spine tenderness of the dorsal spine patient has motor and sensory intact in the left lower extremity has full range of motion of the left lower extremity is able to ambulate in the ER has no saddle anesthesia. Differential diagnosis includes sciatica versus degenerative disc disease. Initial workup was considered however patient has no focal neurologic signs and no red flags and has had a full evaluation within the week with his PCP with referral to PT OT for evaluation. Initial interventions include Decadron ibuprofen diphenhydramine Robaxin Benadryl Lidoderm patch. Review of the patient's records shows that he has known degenerative spine disease and I had interactive discussion with the patient regarding his symptoms and via shared decision making as CT imaging is not indicated due to lack of trauma and the chronic nature of his pain that he has been having since April of unlikely benefit and if any modality would be helpful would be an MRI. Via patient directed decision making patient is willing to forego imaging in the emergency department and lieu of medication to see if we can give him some relief of his sciatica pain. To that end I have medicated him and will reassess for effectiveness. Upon reassessment at 1930 patient reports significant improvement after initial intervention. Given this patient is appropriate for discharge with close follow-up with his PCP, he will contact PT OT in the morning to assess his appointment. <Felipe Guerra MD - Last Filed: 11/04/24 22:08> Vital Signs: 11/04/24 17:46 11/04/24 19:32 Temperature 98.3 F 97.9 F Temperature Source Oral Oral Pulse Rate 74 Pulse Rate [Right] 89 Respiratory Rate 18 16 Blood Pressure 118/72 Blood Pressure [Right Arm] 153/100 H Blood Pressure Mean [Right Arm] 117 Blood Pressure Source Automatic Cuff Blood Pressure Source [Right Arm] Automatic Cuff Blood Pressure Position Supine Blood Pressure Position [Right Arm] Sitting 02 Sat by Pulse Oximetry 97 Oxygen Delivery Method Room Air Room Air Orders (Tests/Meds): ED MEDICATIONS Discontinued Medications Generic Name Dose Route Start Last Admin Trade Name Xiomara PRN Reason Stop Dose Admin Acetaminophen 1,000 mg 11/04/24 17:59 11/04/24 18:08 Acetaminophen 500mg Tab PO 11/04/24 18:00 1,000 mg ONCE ONE Administration Diphenhydramine HCl 50 mg 11/04/24 18:21 11/04/24 18:31 Diphenhydramine 25mg Capsule PO 11/04/24 18:22 50 mg ONCE ONE Administration Ibuprofen 800 mg 11/04/24 17:59 11/04/24 18:08 Ibuprofen 400 Mg Tablet PO 11/04/24 18:00 800 mg ONCE ONE Administration Lidocaine 1 each 11/04/24 17:59 11/04/24 18:08 Lidocaine 5% Transdermal Patch TP 11/04/24 18:00 1 each ONCE ONE Administration Methocarbamol 500 mg 11/04/24 17:59 11/04/24 18:08 Methocarbamol 500mg Tablet PO 11/04/24 18:00 500 mg ONCE ONE Administration Prednisone 60 mg 11/04/24 17:59 11/04/24 18:08 Prednisone 20mg Tab PO 11/04/24 18:00 60 mg ONCE ONE Administration Medical Decision Narrative: In summary patient is a 29-year-old male [facility]. Patient is initially hypertensive 153/100 pulse 89 respiratory rate 18 temperature 98.3 satting at 97% on room air upon arrival, afebrile at 98.3. Physical exam is remarkable for no midline spine tenderness of the dorsal spine patient has motor and sensory intact in the left lower extremity has full range of motion of the left lower extremity is able to ambulate in the ER has no saddle anesthesia. Differential diagnosis includes sciatica versus degenerative disc disease. Initial workup was considered however patient has no focal neurologic signs and no red flags and has had a full evaluation within the week with his PCP with referral to PT OT for evaluation. Initial interventions include Decadron ibuprofen diphenhydramine Robaxin Benadryl Lidoderm patch. Review of the patient's records shows that he has known degenerative spine disease and I had interactive discussion with the patient regarding his symptoms and via shared decision making as CT imaging is not indicated due to lack of trauma and the chronic nature of his pain that he has been having since April of unlikely benefit and if any modality would be helpful would be an MRI. Via patient directed decision making patient is willing to forego imaging in the emergency department and lieu of medication to see if we can give him some relief of his sciatica pain. To that end I have m edicated him and will reassess for effectiveness. Upon reassessment at 1930 patient reports significant improvement after initial intervention. Given this patient is appropriate for discharge with close follow-up with his PCP, he will contact PT OT in the morning to assess his appointment. I was consulted by the DYANA, and we discussed the complexity of the problems being addressed. I approved the treatment and management plan for this patient's care in the Emergency Department, thus performing a substantive portion of the medical decision making. Felipe Guerra MD Critical Care <BRADEN Banuelos - Last Filed: 11/04/24 19:33> Critical Care Time Critical Care Time: No
--- NOTE | 2024-11-04 18:03 | PC.NURSE ---
ROUNDED ON THE PT. THE PT VOICES THAT HE DOES NOT NEED ANYTHING AT THIS TIME. CALL LIGHT IS WITHIN REACH OF THE PT.
[2024-11-04] MEDS: predniSONE 20MG TAB 60 MG PO (18:08)
[2024-11-04] MEDS: METHOCARBAMOL 500MG TABLET 500 MG PO (18:08)
[2024-11-04] MEDS: IBUPROFEN 400 MG TABLET 800 MG PO (18:08)
[2024-11-04] MEDS: LIDOCAINE 5% TRANSDERMAL PATCH 1 EACH TP (18:08)
[2024-11-04] MEDS: ACETAMINOPHEN 500MG TAB 1000 MG PO (18:08)
[2024-11-04] MEDS: diphenhydrAMINE 25MG CAPSULE 50 MG PO (18:31)
--- NOTE | 2024-11-04 18:56 | PC.NURSE ---
ROUNDED ON THE PATIENT. THE PT VOICES THAT HE DOES NOT NEED ANYTHING AT THIS TIME. CALL LIGHT IS WITHIN REACH OF THE PT.
--- NOTE | 2024-11-04 19:23 | PC.NURSE ---
Patient resting comfortably
[2024-11-04 19:32] VITALS: BP 118/72; PULSE 74; RESP 16; TEMP 36.6; O2SAT 99
== END 2024-11-04 19:47 | disposition home or self-care (01) ==
PROVIDERS: Emergency Provider Emergency Medicine; PCP Internal Medicine
DX: M54.32 Sciatica, left side (principal); M25.552 Pain in left hip; M79.605 Pain in left leg
CPT/HCPCS: 99283

== ENCOUNTER 2024-11-06 19:49 | Emergency (ER) | payer MEDICAID, SELFPAY ==
[2024-11-06 20:05] VITALS: BP 153/92; PULSE 86; RESP 20; TEMP 37; O2SAT 99; BMI 35.3
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
--- NOTE | 2024-11-06 20:16 | PC.NURSE ---
Patient with right hand currently soaking in normal saline and hibiclens 50/50 mixture. Voices no questions or concerns at this time.
--- NOTE | 2024-11-06 20:31 | HMH.EDGENADL ---
Discharge Plan Disposition Patient Disposition: Home, Self-Care Condition: Good Prescriptions Prescriptions: No Action amlodipine 5 mg tablet See Rx Instructions .ROUTE .COMPLEX Qty: 30 2RF Dose Instruction: TAKE ONE TABLET BY MOUTH EVERY DAY Rx Instructions: TAKE ONE TABLET BY MOUTH EVERY DAY bupropion HCl 200 mg tablet sustained-release 12 hr 200 mg PO BID Qty: 60 2RF testosterone 20.25 mg/1.25 gram (1.62 %) gel in metered-dose pump 20.25 mg topical ONCE Qty: 75 0RF Rx Instructions: Three pumps applied once daily. cyclobenzaprine 5 mg tablet 10 mg PO TID PRN (Reason: muscle spasm) Qty: 30 1RF Rx Instructions: Start with one tablet, may increase to two tablets if one not effective. prednisone 20 mg tablet 40 mg PO DAILY 5 Days Qty: 10 0RF methocarbamol 750 mg tablet 1,500 mg PO TID 5 Days Qty: 30 0RF Referrals Follow up/Referrals: Tao Rizvi DO [Primary Care Provider] - See instructions Activity Restrictions/Add. Instructions Additional Instructions/Restrictions: Wear dressing for 24 hours. After that, you may take dressing off, keep area clean and dry. Wash with mild soap and water. Return to the ED for any worsening of your condition. Follow-up with PCP within 7 days Clinical Impressions Clinical Impression: Puncture wound Instructions Patient Instructions: Cleaning Wounds With Drinkable Tap Water Print Language Print Language: Nigerien Discharge ED Provider: Serena Freire General Adult HPI <Micheline Banegas APRN - Last Filed: 11/06/24 20:53> General Chief complaint: Wound/Laceration Stated complaint: AO 11/06/24 drill bit injury left hand Time Seen by Provider: 11/06/24 20:19 Mode of Arrival: Ambulatory Source of Information: Patient Limitations: No Limitations Description of Symptoms (Recalled from ER Triage Doc. by RN): Patient stated he injured his right hand at the base of his tumb at 1200 today. Patient states he slipped, and sustained a puncture with a drill bit. Denies any medications at home. Unknown when the patient had his last Tetnus shot. Patient states his made him come. Black debris noted to the palmar aspect of both hands. Related Data Previous Rx's ?Medication ?Instructions ?Recorded amlodipine 5 mg tablet See Rx Instructions .Route 10/20/24 .COMPLEX #30 tabs bupropion HCl 200 mg tablet,12 hr 200 mg PO BID #60 ea 10/20/24 sustained-release testosterone 20.25 mg topical ONCE #75 grams 10/21/24 cyclobenzaprine 5 mg tablet 10 mg (2 x 5 mg) PO TID PRN muscle 10/30/24 spasm #30 tabs methocarbamol 750 mg tablet 1,500 mg (2 x 750 mg) PO TID 5 11/04/24 days #30 tabs prednisone 20 mg tablet 40 mg (2 x 20 mg) PO DAILY 5 days 11/04/24 #10 tabs Allergies Allergy/AdvReac Type Severity Reaction Status Date / Time Penicillins (PENICILLINS) Allergy Mild Hives Verified 10/30/24 12:57 [facility] <Micheline Banegas APRN - Last Filed: 11/06/24 20:53> [facility] Disclaimer: The information contained in this section may have been updated after the patient was seen, as this information can be updated by other users. Medical History Hypogonadism Screening for hypertension Acid reflux Testosterone deficiency in male Os trigonum syndrome Injury of right heel Hepatosplenomegaly Surgical History History of surgical procedure on mouth History of appendectomy Social History Smoking Status: Never smoker alcohol intake: never substance use type: denies use current occupational status: employed Travel in the last 8 weeks: None Have you lived/traveled outside US in past 30 days?: No Contact w/someone who lives/traveled outside US past 30 days?: No Exposure to someone with infectious disease in past 14 days?: No Do you have a fever (greater than 100.4 F or 38 C)?: No Have you tested positive for COVID-19: No Exposed to someone with COVID-19 in past 14 days?: No Do you have a sore throat?: No Do you have a cough?: No Do you have any weakness?: No Do you have any diarrhea?: No Are you experiencing any unusual bleeding?: No Do you have any muscle aches/pain?: No Do you have any abdominal pain?: No Are you experiencing loss of taste or smell?: No Other Medical History Have you received the Flu Vaccine for this season: Yes Have you received the Pneumonia Vaccine: No <Micheline Banegas APRN - Last Filed: 11/06/24 20:53> ROS Obtained: Yes Systems reviewed as appropriate & no additional complaints except as documented Physical Exam <Micheline Banegas APRN - Last Filed: 11/06/24 20:53> General General appearance: alert and in no apparent distress Head Head exam: atraumatic and normocephalic Eye Eye exam: Present normal appearance and PERRL ENT ENT exam: Present normal exam Neck Neck exam: Present normal inspection Chest Chest inspection: Present normal inspection and symmetric chest wall rise; Absent tenderness Respiratory Respiratory exam: Present normal lung sounds bilaterally Cardiovascular Cardiovascular exam: Present regular rate Abdominal Exam Abdominal exam: Present soft and normal bowel sounds; Absent tenderness Extremities Exam Extremities exam: Present normal inspection, full ROM, tenderness (Left hand mild edema around puncture wound on palmar aspect) and normal capillary refill Back Exam Back exam: Present normal inspection and full ROM Neurological Exam Neurological exam: Present alert and oriented X3 Psychiatric Psychiatric exam: Present normal affect and normal mood Skin Skin exam: Present warm and dry Medical Decision Making <Micheline Banegas APRN - Last Filed: 11/06/24 20:53> Medical Records Screening: Per USPSTF and CDC recommendations, given the prevalence of disease in our region, it is our hospital?s policy to screen for HIV and viral Hepatitis for all patients aged 18 and over and those with ongoing risk factors. Bennie Inquiry Pt receiving controlled substance: No Bennie was queried for this patient: No Vital Signs: 11/06/24 20:05 11/06/24 20:56 Temperature 98.6 F 97.9 F Temperature Source Temporal Artery Scan Oral Pulse Rate 65 Pulse Rate [Radial] 86 Respiratory Rate 20 18 Blood Pressure 128/74 Blood Pressure [R Arm] 153/92 H Blood Pressure Mean [R Arm] 112 Blood Pressure Source [R Arm] Automatic Cuff Blood Pressure Position [R Arm] Sitting 02 Sat by Pulse Oximetry 99 Oxygen Delivery Method Room Air Room Air Orders (Tests/Meds): ED MEDICATIONS Discontinued Medications Generic Name Dose Route Start Last Admin Trade Name Freq PRN Reason Stop Dose Admin Acetaminophen 1,000 mg 11/06/24 20:11 11/06/24 20:54 Acetaminophen 500mg Tab PO 11/06/24 20:12 1,000 mg ONCE ONE Administration Tetanus/Diphtheria Toxoids 0.5 ml 11/06/24 20:11 11/06/24 20:55 Tetanus-Diphth Toxoid, Adult 0.5ml Syr IM 11/06/24 20:12 0.5 ml .ONCE ONE Administration ORDERS Category Date Time Status XR hand LT min 3V Stat Exams 11/06/24 20:10 Completed Medical Decision Narrative: In summary, patient is a 29-year-old male with no significant PMHx who presents to the ED for puncture wound in the left hand palmar aspect. Patient states he was using a drill when the drill bit went into his left palm. Patient removed the drill bit on his own. He has full range of motion of his left hand, full sensation. No concern for tendon injury denies any additional injury. Upon initial exam, patient is alert, oriented and cooperative. Patient is hemodynamically stable. Physical exam remarkable for small puncture wound and palmar aspect of left hand under thumb area. Differential diagnosis includes laceration, puncture wound, fracture, foreign body, infectious process Initial workup will be conducted with imaging. Initial inventions include updating patient's tetanus vaccination. Initial workup reviewed by me. Hand x-ray unremarkable for any acute findings. No foreign body noted. I discussed with patient and partner wound care instructions, I placed a nonadherent gauze, padded with regular gauze and wrapped in Liz over left hand. We discussed leaving the dressing on for 24 hours and then removing. Discussed using mild soap and water to wash area. Keep the area clean and dry. Following up with PCP within 7 days. Return to the ED for worsening of condition peer <Serena Freire MD - Last Filed: 11/06/24 23:23> Vital Signs: 11/06/24 20:05 11/06/24 20:56 Temperature 98.6 F 97.9 F Temperature Source Temporal Artery Scan Oral Pulse Rate 65 Pulse Rate [Radial] 86 Respiratory Rate 20 18 Blood Pressure 128/74 Blood Pressure [R Arm] 153/92 H Blood Pressure Mean [R Arm] 112 Blood Pressure Source [R Arm] Automatic Cuff Blood Pressure Position [R Arm] Sitting 02 Sat by Pulse Oximetry 99 Oxygen Delivery Method Room Air Room Air Orders (Tests/Meds): ED MEDICATIONS Discontinued Medications Generic Name Dose Route Start Last Admin Trade Name Xiomara PRN Reason Stop Dose Admin Acetaminophen 1,000 mg 11/06/24 20:11 11/06/24 20:54 Acetaminophen 500mg Tab PO 11/06/24 20:12 1,000 mg ONCE ONE Administration Tetanus/Diphtheria Toxoids 0.5 ml 11/06/24 20:11 11/06/24 20:55 Tetanus-Diphth Toxoid, Adult 0.5ml Syr IM 11/06/24 20:12 0.5 ml .ONCE ONE Administration ORDERS Category Date Time Status XR hand LT min 3V Stat Exams 11/06/24 20:10 Completed Medical Decision Narrative: In summary, patient is a 29-year-old male with no significant PMHx who presents to the ED for puncture wound in the left hand palmar aspect. Patient states he was using a drill when the drill bit went into his left palm. Patient removed the drill bit on his own. He has full range of motion of his left hand, full sensation. No concern for tendon injury denies any additional injury. Upon initial exam, patient is alert, oriented and cooperative. Patient is hemodynamically stable. Physical exam remarkable for small puncture wound and palmar aspect of left hand under thumb area. Differential diagnosis includes laceration, puncture wound, fracture, foreign body, infectious process Initial workup will be conducted with imaging. Initial inventions include updating patient's tetanus vaccination. Initial workup reviewed by me. Hand x-ray unremarkable for any acute findings. No foreign body noted. I discussed with patient and partner wound care instructions, I placed a nonadherent gauze, padded with regular gauze and wrapped in Liz over left hand. We discussed leaving the dressing on for 24 hours and then removing. Discussed using mild soap and water to wash area. Keep the area clean and dry. Following up with PCP within 7 days. Return to the ED for worsening of condition peer I was consulted by the DYANA, and we discussed the complexity of problems being addressed. I approved the treatment and management plan for this patient's care in the emergency department, thus performing a substantial portion of the medical decision making. Serena Freire MD Critical Care <Micheline Banegas APRN - Last Filed: 11/06/24 20:53> Critical Care Time Critical Care Time: No
[2024-11-06] MEDS: ACETAMINOPHEN 500MG TAB 1000 MG PO (20:54)
[2024-11-06] MEDS: TETANUS-DIPHTH TOXOID, ADULT 0.5ML SYR 0.5 ML IM (20:55)
[2024-11-06 20:56] VITALS: BP 128/74; PULSE 65; RESP 18; TEMP 36.6; O2SAT 98
--- NOTE | 2024-11-06 20:57 | PC.NURSE ---
Administered tetanus vaccine to this patient, medication was entered in error. The adacel 0.5mL was administered.
== END 2024-11-06 20:57 | disposition home or self-care (01) ==
PROVIDERS: Emergency Provider Student in an Organized Health Care Education/Training Program; PCP Internal Medicine
DX: S61.431A Puncture wound without foreign body of right hand, initial encounter (principal); T14.8XXA Other injury of unspecified body region, initial encounter; Z23 Encounter for immunization; X58.XXXA Exposure to other specified factors, initial encounter; Y93.89 Activity, other specified; Y92.9 Unspecified place or not applicable
CPT/HCPCS: 73130; 90471; 90714; 99283

== ENCOUNTER 2024-11-16 16:00 | Outpatient (RCR) | payer MEDICAID, SELFPAY ==
--- NOTE | 2024-11-12 11:35 | HMH.PTOPEV ---
PT Outpatient Evaluation Rehab PT Outpatient Evaluation Start: 11/12/24 11:19 Freq: Status: Active Protocol: Document 11/12/24 11:19 FER (Rec: 11/12/24 11:35 FER [id number]) E-signed By Taz Nicolas, PT Outpatient Therapy Subjective History Subjective History The pt is a 29 yom who is referred to [facility] outpatient Physical Therapy with complaints of neck pain and upper back pain that has been persisting for approximately 1 year. He reports that about he fell off of a roof approximately a year and a half ago. He reports that he was bruised and sore but did not really have any issues until a few months after when he is upper back and neck started to hurt. He reports that at this point, his neck feels very stiff and he often has severe headaches. He reports that the pain has progressively worsened in the last year. He reports significant difficulty driving , reading, sleeping, and cleaning. He reports a PMH of hypertension. New diagnosis of cancer in past 12 No months? Chief Complaint Pain,Stiff Symptom Type Sharp Symptoms Relieved By Nothing Symptoms Aggravated By Prone,Supine,Standing,Twisting Prior Functional Limitations None Current Functional Limitations Reaching,Housework,Dressing, Desk Work/Reading,Driving, Sleeping Symptom Description Intermittent,Activity Dependent Level of pain today (0-10) 3 Pain scale - at its best (0-10) 0 Pain scale - at its worst (0-10) 8 Cervical Eval Palpation Cervical Muscles R Cervical Paraspinal,L Cervical Paraspinal,R Suboccipital,L Suboccipital,R Upper Trapezius,L Upper Trapezius Cervical/Thoracic Palpation Findings Tenderness Posture Head/C-Spine Posture Sitting Position Neutral Position Head/C-Spine Posture Standing Position Neutral Position Flexibility Deficits Upper Trapezius Muscle Length (R) Moderate Tightness,(L) Moderate Tightness Pectoralis Major Muscle Length (R) Moderate Tightness,(L) Moderate Tightness Pectoralis Minor Muscle Length (R) Moderate Tightness,(L) Moderate Tightness Passive Joint Mobility Cervical PIVM Dec: R OA L OA R AA L AA R C2/3 L C2/3 R C3/4 L C3/4 WNL: R C4/5 L C4/5 R C5/6 L C5/6 R C6/7 L C6/7 R C7/T1 L C7/T1 AROM Cervical Spine Extension Active Range of 50% Motion (degrees) Cervical Spine Flexion Active Range of 75% Motion (degrees) Cervical Spine Right Lateral Flexion 25% Active Range of Motion (degrees) Cervical Spine Left Lateral Flexion 25% Active Range of Motion (degrees) Cervical Spine Right Rotation Active 50% Range of Motion (degrees) Cervical Spine Left Rotation Active 50% Range of Motion (degrees) MMT Bilateral Deltoid (C5) 5 Normal Biceps Brachii Strength Grade 5 Normal Wrist Extension Strength Grade 5 Normal Triceps Brachii Strength Grade 5 Normal Wrist Flexion Strength Grade 5 Normal Extensor Pollicis Longus Strength Grade 5 Normal Finger Abduction Strength Grade 5 Normal DTR Rt Biceps 2+ Lt Biceps 2+ Rt Brachioradialis 2+ Lt Brachioradialis 2+ Rt Triceps 2+ Lt Triceps 2+ Special Test C-Spine Foraminal Compression ([place]) Negative Left,Negative Right Test C-spine Verterbral Accessory Movements Central P/A [place],Right P/A that Elicit Symptoms [place],Left P/A [place] C-Spine Foraminal Distraction Test Negative C-Spine Compression Test Negative Left,Negative Right Neck Disability Index Neck Disability Index Section 1: Pain Intensity I have no pain at the moment Section 2: Personal Care (washing, I can look after myself dressing, etc.) normally without causing extra pain Section 3: Lifting I can lift heavy weights without extra pain Section 4: Reading I can read as much as I want to with slight pain in my neck Section 5: Headaches I have headaches almost all the time Section 6: Concentration I can concentrate fully when I want to with slight difficulty Section 7: Work I can do most of my usual work , but no more Section 8: Driving I can drive my car as long as I want with slight pain in my neck Section 9: Sleeping My sleep is midly disturbed (1 -2 hrs sleepless) Section 10: Recreation I am able to engage in all my recreation activities with some pain in NDI Score 13 Miscellaneous Dx PT Eval Objective Objective Rhomboids B: 2+/5 MMT DCNF Endurance Test: Unable to initiate positioning Flexion-Rotation Test: Recreates comparable sign of neck pain, unable to rotate to Axilla Outpatient Therapy Assessment Impairments Problems/Impairmments Palpation Tenderness,Impaired Range of Motion,Impaired Strength,Impaired Endurance, Impaired Household Care, Subjective C/O Pain Prognosis Rehab Potential Good Comment w HEP compliance Clinical Impression Consistent with Diagnosis Yes Consistent with Neck pain w Headache Additional details: Pts signs and symptoms are consistent with neck pain with headache. The pt would benefit from skilled PT to address his above impairments, prevent further injury and to promote a return to his PLOF. Short Term Goals Number of Weeks 4 Decreased Palpation Tenderness Yes: 1-2/4 to TTP Assessment Above Increase Range of Motion Yes: 50-75% AROM of Cervical Spine Increase Strength Yes: 4/5 to B rhomboids Increase Endurance Yes: DCNF Endurance Test: 15s Increase Ability to Drive/Ride in Car Yes: Able to drive 30 minutes without increasing pain Improve Neck Disability Index Score Yes: to 8 Decrease Subjective C/O Pain Yes: 5/10 with above activities Patient to be Ind w/ HEP Yes Skilled Nursing Goals Number of Weeks 8 Decreased Palpation Tenderness Yes: 0-1/4 to TTP Assessment Above Increase Range of Motion Yes: 75-100% AROM of Cervical Spine Increase Strength Yes: 4+-5/5 to B Rhomboids Increase Endurance Yes: DCNF Endurance Test 30s Increase Ability to Drive/Ride in Car Yes: 1 hour without increasing pain Improve Neck Disability Index Score Yes: to 5 Decrease Subjective C/O Pain Yes: 2-3/10 with above activities Patient to be Ind w/ Advanced HEP Yes Outpatient Therapy Plan of Care Treatment Plan May Include Therapeutic Exercise Including Home Yes Exercise Program Manual Therapy Techniques Yes Neuromuscular Re-education Yes Therapeutic Activities to Return to Yes Previous Functional/Work Level ADL/Self Care Education Yes Mechanical Traction Yes Dry Needling Yes Thermal Modalities Yes Electrical Stimulation Yes Manual Lymphatic Drainage Yes Eval/Re-Eval Yes Frequency Times per week 2 Duration Number of Weeks 8 Addendums This patient is a candidate for social No or vocational rehab? Patient/Guardian verbally acknowledges Yes understanding of treatment program and consents to further treatment? Patient/Guardian verbally acknowledges Yes understanding of diagnosis, prognosis and goals for treatment? Eval Complexity PT Charges 10746 - Low Complexity Shoulder/Elbow Eval Shoulder Objective Measurements Elbow Objective Measurements PHYSICIAN CERTIFICATION: I certify the specified therapy services for Constantino Schmitz are required, authorized, and reviewed every 30 days.
== END 2024-11-16 23:59 | disposition home or self-care (01) ==
LOC: PT 16:00
PROVIDERS: Visit Provider Internal Medicine
DX: M54.2 Cervicalgia (principal)
CPT/HCPCS: 97163

== ENCOUNTER 2024-11-30 13:58 | Outpatient (CLI) | payer MEDICAID, SELFPAY ==
[2024-11-30 15:04] LABS: Blood Urea Nitrogen 12 mg/dl (9-20); Estimated Glomerular Filt Rate 100 ml/min (>60); GFR (African American) 121 ML/MIN (>60)
[2024-11-30 15:52] LABS: Microscopic, Urine URINE MICROSCOPIC (MICROSCOPIC)
[2024-11-30 21:06] LABS: Appearance,Urine Clear (Clear); Color,Urine Yellow (Yellow); PH,Urine 5.5 (5.0-8.5); Protein,Urine 1+ (Negative)
[2024-11-30 21:07] LABS: Bacteria,Urine Trace /lpf; Bilirubin,Urine Negative (Negative); Blood, Urine Trace (Negative); Glucose,Urine (UA) Negative (Negative); Ketones,Urine Negative (Negative); Leukocyte Esterase,Urine Negative (Negative); Nitrate,Urine Negative (Negative); Urobilinogen,Urine 0.2 EU/dl (0.2); WBC,Urine Occasional #/hpf (0-3)
[2024-12-01 11:12] LABS: Sex Hormone Binding Globulin 13.3 nmol/L (16.5-55.9); Testosterone,Total 631 ng/dL (264-916)
== END 2024-11-30 23:59 | disposition home or self-care (01) ==
LOC: LAB 13:59
PROVIDERS: PCP Internal Medicine; Visit Provider Urology
DX: N32.0 Bladder-neck obstruction (principal); R31.9 Hematuria, unspecified
CPT/HCPCS: 36415; 81001; 82565; 84270; 84403; 84520

== ENCOUNTER 2024-12-03 14:24 | Outpatient (CLI) | payer MEDICAID, SELFPAY ==
[2024-12-03 18:17] LABS: Creatinine,Urine Random 206 mg/dL (Not Estab.)
[2024-12-03 22:09] LABS: Microalbumin/Creatinine Ratio 922.3
== END 2024-12-03 23:59 | disposition home or self-care (01) ==
LOC: LAB.DROPOF 12-04 10:01
PROVIDERS: PCP Internal Medicine; Visit Provider Internal Medicine
DX: R31.9 Hematuria, unspecified (principal); R80.9 Proteinuria, unspecified
CPT/HCPCS: 82043; 82570

== ENCOUNTER 2025-06-16 20:35 | Emergency (ER) | payer MEDICAID, SELFPAY ==
[2025-06-16 20:54] VITALS: BP 142/90; PULSE 80; RESP 18; TEMP 36.8; O2SAT 97; BMI 37.8
--- OUTSIDE RECORDS SUMMARY | 2025-06-16 21:06 | XMS_ITS | Clinical Summary ---
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 Social History Tobacco Use Types Packs/Day Years Used Date Smoking Tobacco: Every Day Smokeless Tobacco: Never Alcohol Use Standard Drinks/Week Comments No 0 (1 standard drink = 0.6 oz pur e alcohol) Sex and Gender Information Value Date Recorded Sex Assigned at Not on file Legal Sex Male 6:27 PM EDT Gender Identity Not on file Sexual Orientation Not on file Last Filed Vital Signs Vital Sign Reading Time Taken Comments Blood Pressure 125/79 11/21/2020 10:54 AM EST Pulse 68 11/21/2020 10:54 AM EST Temperature - - Respiratory Rate - - Oxygen Saturation - - Inhaled Oxygen Concentration - - Weight 126 kg (278 lb) 11/21/2020 10:54 AM EST Height 188 cm (6' 2 ) 11/21/2020 10:54 AM EST Body Mass Index 35.69 11/21/2020 10:54 AM EST Plan of Treatment Health Maintenance Due Date Last Done Comments [facility]-Depression Screening 1995 [facility]-Infant/Child/Adol SDOH Screenings 1995 [facility]-Varicella Vaccines (1 of 2 - 13+ 2-dose series) 2008 [facility]- SDOH Screenings 2013 [facility]-Adult SDOH Screenings 2013 [facility]-DTaP,Tdap,and Td Vaccine s (1 - Tdap) 2014 [facility]-Hepatitis B Vaccines (1 of 3 - 19+ 3-dose series) 2014 HPV Vaccines (1 - 3-dose SCD M series) 2022 [facility]-IDLMS-02 Vaccine (1 - 20 24-25 season) 2025 [facility]-Influenza Vaccine (#1) 2025 [facility]-Zoster Vaccines (1 of 2) 2045 [facility]-HIB Vaccines Aged Out No longer e ligible based on patient's age to complete this topic [facility]-Hepatitis A Vaccines Aged Out No longer eligible based on patient's age to complete this topic [facility]-IPV Vaccines Aged Out No longer e ligible based on patient's age to complete this topic [facility]-Pneumococcal Vaccine: Pediatrics (0 to 5 Years) and At-Risk Patients (6 to 49 Years) Aged Out No long er eligible based on patient's age to complete this topic [facility]-Rotavirus Vaccines Aged Out No lo nger eligible based on patient's age to complete this topic Insurance [employer] Care Teams Straw Hat Brim Cutter Operator Relationship Specialty Start Date End Date Shellie Richmond PA [address] [place] [address] PCP - General 02/03/21
--- NOTE | 2025-06-16 22:01 | ED_ITS ---
Discharge Plan Disposition Patient Disposition: Home, Self-Care Condition: Good Prescriptions Prescriptions: New erythromycin 5 mg/gram (0.5 %) ointment 1 applic ophthalmic (eye) QID Qty: 50 0RF No Action tamsulosin [Flomax] 0.4 mg capsule 0.4 mg PO DAILY Qty: 30 3RF testosterone 20.25 mg/1.25 gram (1.62 %) gel in metered-dose pump 5 pump topical QAM sumatriptan succinate 50 mg tablet 50 mg PO Q2H PRN (Reason: migraine headache) Qty: 10 0RF Rx Instructions: do not exceed 4 doses per 24 hrs loratadine [Allergy Relief (loratadine)] 10 mg tablet 10 mg PO DAILY PRN (Reason: allergy symptoms) Qty: 30 2RF bupropion HCl 200 mg tablet sustained-release 12 hr 200 mg PO BID Qty: 60 2RF cyclobenzaprine 5 mg tablet See Rx Instructions .ROUTE .COMPLEX Qty: 30 1RF Dose Instruction: TAKE 1 TO 2 TABLET(S) BY MOUTH THREE TIMES DAILY NEEDED FOR MUSCLE SPASMS (START WITH 1 TABLET, MAY INCREASE TO 2 TABLETS IF 1 IS NOT EFFECTIVE) MAY CAUSE DROWSINESS Rx Instructions: TAKE 1 TO 2 TABLET(S) BY MOUTH THREE TIMES DAILY NEEDED FOR MUSCLE SPASMS (START WITH 1 TABLET, MAY INCREASE TO 2 TABLETS IF 1 IS NOT EFFECTIVE) MAY CAUSE DROWSINESS amlodipine 5 mg tablet See Rx Instructions .ROUTE .COMPLEX Qty: 30 2RF Dose Instruction: TAKE ONE TABLET BY MOUTH EVERY DAY Rx Instructions: TAKE ONE TABLET BY MOUTH EVERY DAY Referrals Follow up/Referrals: Tao Rizvi DO [Primary Care Provider, Family Practice] - See instructions Activity Restrictions/Add. Instructions Additional Instructions/Restrictions: Place the erythromycin ointment in your eye 4 times a day. Return to the em ergency department for any changes in vision. Call Dr. Alvarado with [facility] if you continue to have any eye issues or continued pain over the next few days. Here is their number: [phone] Clinical Impressions Clinical Impression: Abrasion, corneal Print Language Print Language: Turkish Discharge ED Provider: Desirae Beatty Adult HPI General Chief complaint: Eye Problems Stated complaint: AO 9-24 metal in right eye Time Seen by Provider: 06/16/25 21:03 Mode of Arrival: Ambulatory Source of Information: Patient Description of Symptoms (Recalled from ER Triage Doc. by RN): Pt states he was using a carbon plant grinder without eye protection and now has a piece of metal in his right eye. Pt has redness noted to the right eye, denies any blurred vison History of Present Illness HPI narrative: Patient is an otherwise healthy 29-year-old male who presented to the emergency department with right eye irritation. Patient states that he was grinding metal without eye protection when he felt like he got something in his right eye. Patient washed it out at home. Continues to have right eye irritation which is what brought him here today. Patient denies any vision changes. Patient does not wear contacts. Patient has no other medical problems. Related Data Home Medications ?Medication ?Instructions ?Recorded ?Confirmed testosterone 5 pump topical QAM 12/03/24 04/23/25 Previous Rx's ?Medication ?Instructions ?Recorded tamsulosin 0.4 mg capsule (Flomax) 0.4 mg PO DAILY #30 caps 11/30/24 sumatriptan succinate 50 mg tablet 50 mg PO Q2H PRN mi graine headache 12/03/24 #10 tabs bupropion HCl 200 mg tablet,12 hr 200 mg PO BID #60 ea 12/08/24 sustained-release cyclobenzaprine 5 mg tablet See Rx Instructions .Route 02/04/25 .COMPLEX #30 tabs amlodipine 5 mg tablet See Rx Instructions .Route 0 02/23/25 .COMPLEX #30 tabs loratadine 10 mg tablet (Allergy 10 mg PO DAILY PRN al lergy 04/23/25 Relief (loratadine)) symptoms #30 tabs erythromycin 5 mg/gram (0.5 %) eye 1 applic ophthalmic (eye) QID #50 06/16/25 ointment grams Allergies Allergy/AdvReac Type Severity Reaction Status Date / Time Penicillins (PENICILLINS) Allergy Mild Hives Verified 04/23/25 11:48 PFSH [facility] Disclaimer: The information contained in this section may have been updated after the patient was seen, as this information can be updated by other users. Medical History Hypogonadism Screening for hypertension Acid reflux Testosterone deficiency in male Os trigonum syndrome Injury of right heel Hepatosplenomegaly Surgical History History of tooth extraction History of surgical procedure on mouth History of appendectomy Social History Smoking Status: Never smoker alcohol intake: never substance use type: denies use current occupational status: employed Travel in the last 8 weeks?: None Have you lived/traveled outside [place] in past 30 days?: No Contact w/someone who lives/traveled outside US past 30 days?: No Exposure to someone with infectious disease in past 14 days?: No Do you have a fever (greater than 100.4 F or 38 C)?: No Have you tested positive for COVID-19?: No Exposed to someone with COVID-19 in past 14 days?: No Do you have a sore throat?: No Do you have a cough?: No Do you have any weakness?: No Do you have any diarrhea?: No Are you experiencing any unusual bleeding?: No Do you have any muscle aches/pain?: No Do you have any abdominal pain?: No Are you experiencing loss of taste or smell?: No Other Medical History Have you received the Flu Vaccine for this season: Yes Have you received the Pneumonia Vaccine: No ROS Obtained: Yes All systems reviewed & no additional complaints except as documented and Yes Systems reviewed as appropriate & no additional complaints except as documented Physical Exam General General appearance: alert and in no apparent distress Head Head exam: atraumatic, normocephalic and normal inspection Eye Eye exam: Present normal appearance, PERRL, EOMI and other (mild conjunctival redness, fluorescein exam performed small corneal abrasion, no foreign body seen, funduscopic exam performed no evidence of foreign body or metal object.); Absent scleral icterus ENT ENT exam: Present normal exam and normal external ear exam Neck Neck exam: Present normal inspection and full ROM Chest Chest inspection: Present normal inspection and symmetric chest wall rise Respiratory Respiratory exam: Present normal lung sounds bilaterally; Absent respiratory di stress or wheezes Cardiovascular Cardiovascular exam: Present regular rate, normal rhythm and normal heart sounds Abdominal Exam Abdominal exam: Present soft and distention; Absent tenderness, guarding or rebound Extremities Exam Extremities exam: Present normal inspection and full ROM Back Exam Back exam: Present normal inspection and full ROM Neurological Exam Neurological exam: Present alert and oriented X3 Psychiatric Psychiatric exam: Present normal affect and normal mood Skin Skin exam: Present warm and dry Medical Decision Making Medical Records Medical records reviewed: Yes I reviewed the patient's medical records. Screening: Per USPSTF and CDC recommendations, given the prevalence of disease in our region, it is our hospital?s policy to screen for HIV and viral Hepatitis for all patients aged 18 and over and those with ongoing risk factors. Bennie Inquiry Pt receiving controlled substance: No Vital Signs: 06/16/25 20:54 06/16/25 23:01 Temperature 98.2 F 98.1 F Temperature Source Temporal Artery Scan Pulse Rate 70 Pulse Rate [Right] 80 Respiratory Rate 18 18 Blood Pressure 130/91 H Blood Pressure [Right Arm] 142/90 H Blood Pressure Mean [Right Arm] 107 Blood Pressure Source [Right Arm] Automatic Cuff Blood Pressure Position [Right Arm] Sitting 02 Sat by Pulse Oximetry 97 Oxygen Delivery Method Room Air Room Air Lab Data Lab results reviewed: Yes I reviewed the patient's lab results. Medical Decision Narrative: Patient is an otherwise healthy 29-year-old male who presented to the emergency department with right eye irritation. On arrival, patient was hemodynamically stable with unremarkable vital signs. Differential includes but not limited to: Corneal abrasion, corneal ulcer, foreign body, foreign body sensation, amongst others. On exam, patient had some conjunctival redness. Fluorescein exam was performed patient had a small corneal abrasion. No foreign body is seen. Funduscopic exam was performed, no foreign bodies were seen. Patient had already washed his eyes out prior to arrival. At this time, I felt the patient was appropriate to discharge home with erythromycin ointment. Patient was given outpatient ophthalmology referral if patient continued to have a foreign body sensation. Patient's vision was otherwise intact. Patient was discharged home in stable condition. Critical Care Critical Care Time Critical Care Time: No
[2025-06-16 23:01] VITALS: BP 130/91; PULSE 70; RESP 18; TEMP 36.7; O2SAT 97
== END 2025-06-16 23:07 | disposition home or self-care (01) ==
PROVIDERS: Emergency Provider Student in an Organized Health Care Education/Training Program; PCP Internal Medicine
DX: S05.01XA Injury of conjunctiva and corneal abrasion without foreign body, right eye, initial encounter (principal); W44.D0XA Magnetic metal object unspecified, entering into or through a natural orifice, initial encounter
CPT/HCPCS: 99282; 99283

== ENCOUNTER 2025-07-08 21:15 | Emergency (ER) | payer MEDICAID, SELFPAY ==
[2025-07-08 21:32] VITALS: BP 172/104; PULSE 90; RESP 18; TEMP 36.9; O2SAT 98; BMI 37.8
--- OUTSIDE RECORDS SUMMARY | 2025-07-08 21:38 | XMS_ITS | Clinical Summary ---
Author Organization Healthcare Address [address] [place] [address] Care Team Providers Care Microfilm Processor Name Role Phone Shellie Richmond Primary Care Provider [phone] Allergies Active Allergy Reactions Criticality Noted Date [...] Date Last Done Comments [facility]-Depression Screening 1995 [facility]-/Child/Adol SDOH Screenings 1995 [facility]-Varicella Vaccines (1 of 2 - 13+ 2-dose series) 2008 [facility]- SDOH Screenings 2013 [facility]-Adult SDOH Screenings 2013 [facility]-DTaP,Tdap,and Td Vaccine s (1 - Tdap) 2014 [facility]-Hepatitis B Vaccines (1 of 3 - 19+ 3-dose series) 2014 HPV Vaccines (1 - 3-dose SCD M series) 2022 [id number] Vaccine (1 - 20 24-25 season) 2025 [...] to complete this topic Insurance [place] [address] Care Teams Microfilm Processor Relationship Specialty Start Date End Date Shellie Richmond PA [address] [place] [address] PCP - General 02/03/21
--- OUTSIDE RECORDS SUMMARY | 2025-07-08 21:38 | XMS_ITS | Data Portability ---
Author Organization [place] - [facility] & BRYAN Flowers ADMIN Address [address] [place] [id number] Care Team Providers Care Curator Of Photography And Prints Name Role Phone LORETA RIZVI Primary Care Provider [phone] Assessment Encounter Date Assessment Date Assessment LastModified by Organization Details LastModified Time 02/09/2025 02/09/2025 ASSESSMENT: Constantino Schmitz is a 29-year-old male with blood in the urine, proteinuria, and erectile dysfunction. PLAN: 1. Ordered a new CT scan to evaluate the kidneys and bladder. 2. Ordered blood work to check for any abnormalities. 3. Scheduled a cystoscopy to evaluate the urethra and bladder for any lesions or scar tissue. 4. Scheduled a UroCuff study to assess bladder pressure and flow. 5. Patient was educated on the procedures and the importance of follow-up. 6. Patient was instructed to hand the order to the front services agent for scheduling and blood work. Please note this report was created using voice recognition/text compilation software with [employer]'s documentation services during the encounter with the patient; Please excuse any errors due to the clearing inspector process. [email or web address] Not available 02/09/2025 15:29:55 02/25/2025 02/25/2025 ASSESSMENT: Constantino Schmitz is a 29-year-old male with visible blood in the urine, suspected to originate from the prostate, and a history of smoking. PLAN: 1. An ultrasound of the kidneys was ordered to evaluate for abnormalities without exposing the patient to radiation. 2. The provider discussed the possibility of a CT scan if the ultrasound demonstrates any abnormalities, but emphasized the preference to avoid radiation due to the patient's lack of significant risk factors. 3. The patient was informed that the results of the ultrasound would be reviewed, and follow-up would occur via phone in approximately two weeks. 4. The provider reassured the patient that visible blood in the urine is often harmless in young individuals without significant risk factors. [email or web address] Not available 02/25/2025 13:51:39 03/18/2025 03/18/2025 ASSESSMENT: Constantino Schmitz is a 29-year-old male with intermittent mack hematuria. PLAN: 1. Discussed the possibility of treating the hematuria as prostatitis, given the suspected origin from the prostate ducts. 2. Recommended a 30-day course of doxycycline, as it is well-tolerated and penetrates prostate tissue effectively. Discussed potential side effects, including stomach upset and increased sensitivity to sunlight, advising the patient to use sunscreen, wear a hat, and cover exposed skin while outdoors during treatment. 3. Prescription for doxycycline sent to the pharmacy. 4. Follow-up visit scheduled in six to eight weeks to reassess symptoms and treatment efficacy. 5. Provided safety-net advice to call or return to the clinic if concerns arise. Please note this report was created using voice recognition/text compilation software documentation services during the encounter with the patient. [email or web address] Not available 03/18/2025 15:57:14 Plan of Treatment Reminders Order Date Submit Date Provider Last Modified By Organization Details Last Modified Time Details Appointments None recorded. Lab urinalysis , dipstick [email or web address] [facility], [address] [facility] [address], [place], [address], 5 15:29:15 BMP, serum or plasma 2024 025 [email or web address] [facility] (Registration ), [address] [facility], [place], [address], 5 14:53:20 urinalysis , dipstick 2022 023 [email or web address] [facility], [address] [facility], [address], [place], [address], 3 14:53:04 Referral None recorded. Procedures bladder scan (PROC) 2024 025 [email or web address] [facility], [address], [place], [address], 5 15:29:15 Surgeries None recorded. Imaging US, renal [address] (Centralized Scheduling), [address], [place], [address], 5 08:14:04 CT, urogram [address] (Centralized Scheduling), [address], [place], [address], 5 09:37:20 CT, abdomen + pelvis, w/o contrast [facility]22 [facility] [address], [place], [address], 3 15:58:35 Medication Orders doxycyclin e hyclate 100 mg tablet 2024 025 [facility], [address] [place] [address] [address] [facility] [address], [place], [id number], 5 08:49:24 Patient TargetsNo targets recorded. Patient InstructionsNo instructions recorded. Reason for Referral None Reported. Results Created Date Observation Date Name Description Value Unit Range Abnormal Flag Note LastModifiedBy Organization Detail LastModifiedTime 10/23/19 23 10/23/2022 urina lysis , dipst ick Leukocytes (reference range) negati ve Not Available [facility] [address] [facility] [address], [place], [address], 10/23/2022 14:39:32 10/23/19 23 10/23/2022 urina lysis , dipst ick Nitrite (reference range:) negati ve Not Available [facility] [address] [place] [address] [address], [place], [address], 10/23/2022 14:39:32 10/23/19 23 10/23/2022 urina lysis , dipst ick Urobilinogen (reference range) 0.2 Not Available [facility] [address], [place], [address], 10/23/2022 14:39:32 10/23/19 23 10/23/2022 urina lysis , dipst ick Protein (reference range) trace Not Available [facility] [address], [place], [address], 10/23/2022 14:39:32 10/23/19 23 10/23/2022 urina lysis , dipst ick pH (reference range 5-8.5) 6.0 Not Available [facility] [address], [place], [address], 10/23/2022 14:39:32 10/23/19 23 10/23/2022 urina lysis , dipst ick Blood (reference range:) non-He molyze d: Trace Not Available [facility] [address], [place], [address], 10/23/2022 14:39:32 10/23/19 23 10/23/2022 urina lysis , dipst ick Specific [place] (reference range) 1.020 Not Available [facility] [address], [place], [address], 10/23/2022 14:39:32 10/23/19 23 10/23/2022 urina lysis , dipst ick Ketone (reference range) negati ve Not Available [address], [place], [address], 10/23/2022 14:39:32 10/23/19 23 10/23/2022 urina lysis , dipst ick Bilirubin (reference range) negati ve Not Available [facility] [address], [place], [address], 10/23/2022 14:39:32 10/23/19 23 10/23/2022 urina lysis , dipst ick Glucose (reference range) negati ve Not Available [facility] [address], [place], [address], 10/23/2022 14:39:32 10/23/19 23 10/23/2022 urina lysis , dipst ick Color (reference range: yellow-brown ) Yellow Not Available [facility] [address] [facility] [address], [place], [address], 10/23/2022 14:39:32 02/10/20 25 02/09/2025 BASIC METAB OLIC PANEL sodium 139 mmol/ L 136-14 5 Not Available [facility] ([facility]) [address] [place], [address], 02/09/2025 16:18:27 02/10/20 25 02/09/2025 BASIC METAB OLIC PANEL potassium 4.2 mmol/ L 3.6-5. 0 Not Available [facility] ([facility]) [address] [place], [address], 02/09/2025 16:18:27 02/10/20 25 02/09/2025 BASIC METAB OLIC PANEL chloride 104 mmol/ L 98-107 Not Available [facility] ([facility]) [address] [place], [address], 02/09/2025 16:18:27 02/10/20 25 02/09/2025 BASIC METAB OLIC PANEL carbon dioxide 29.0 mmol/ L 21.0-3 2.0 Not Available [facility] ([facility]) [address] , [place], [address], 02/09/2025 16:18:27 02/10/20 25 02/09/2025 BASIC METAB OLIC PANEL anion gap 10.2 Not Available [facility] ([facility]) [address] , [place], [address], 02/09/2025 16:18:27 02/10/20 25 02/09/2025 BASIC METAB OLIC PANEL glucose 94 mg/dL 70-120 Not Available [facility] ([facility]) [address], [place], [address], 02/09/2025 16:18:27 02/10/20 25 02/09/2025 BASIC METAB OLIC PANEL BUN 14 mg/dL 7-18 Not Available [facility] ([facility]) [address] , [place], [address], 02/09/2025 16:18:27 02/10/20 25 02/09/2025 BASIC METAB OLIC PANEL creatinine 1.4 mg/dL 0.6-1. 3 high Not Available [facility] ([facility]) [address] , [place], [address], 02/09/2025 16:18:27 02/10/20 25 02/09/2025 BASIC METAB OLIC PANEL glomerular filtration rate 70 mlper min 60- GFR LIMIT ATION : The eGFR equat ion CKD-E PI 2020 is not appli cable for pedia tric patie nts or great er than 90 years of age. The follo wing condi tions may alter the GFR resul t: extre mes in body size, malnu triti on or obesi ty, skele eddie muscl e disea se, parap legia or quadr ipleg ia, veget jacob diet or rapid ly baez ing kiney funct ion. Not Available [facility] ([facility]) [address] , [place], [address], 02/09/2025 16:18:27 02/10/20 25 02/09/2025 BASIC METAB OLIC PANEL osmolality (calculated) 289 mOsm/ kg 275-30 1 OSMOL ALITY IS A CALCU LATIO N UTILI ZING THE SERUM /PLAS MA SODIU M, GLUCO SE AND UREA NITRO GEN (BUN) LEVEL S. FOR THE MOST ACCUR ATE RESUL T A MEASU RED SERUM OSMOL ALITY IS SUGGE STED. Not Available [facility] ([facility]) [address] [facility], [place], [address], 02/09/2025 16:18:27 02/10/20 25 02/09/2025 BASIC METAB OLIC PANEL calcium 8.8 mg/dL 8.5-10 .5 Not Available [facility] ([facility]) [address] [facility], [place], [address], 02/09/2025 16:18:27 02/10/20 25 02/09/2025 bladd er scan (PROC ) Calculated Residual Urine: 20cc Not Available [facility] [address] [facility] [address], [place], [address], 02/09/2025 15:18:00 02/10/20 25 02/09/2025 urina lysis , dipst ick Leukocytes (reference range) negati ve Not Available [place] [address] [address] [facility] [address], [place], [address], 02/09/2025 15:14:45 02/10/20 25 02/09/2025 urina lysis , dipst ick Nitrite (reference range:) negati ve Not Available [place] [address] [address] [facility] [address], [place], [address], 02/09/2025 15:14:45 02/10/20 25 02/09/2025 urina lysis , dipst ick Protein (reference range) trace Not Available [facility] [place] [address] [address] [facility] [address], [place], [address], 02/09/2025 15:14:45 02/10/20 25 02/09/2025 urina lysis , dipst ick pH (reference range 5-8.5) 5.0 Not Available [facility] [place] [address] [address] [facility] [address], [place], [address], 02/09/2025 15:14:45 02/10/20 25 02/09/2025 urina lysis , dipst ick Blood (reference range:) small Not Available [place] [address] [address] [facility] [address], [place], [address], 02/09/2025 15:14:45 02/10/20 25 02/09/2025 urina lysis , dipst ick Specific [place] (reference range) 1.000 Not Available [place] [address] [address] [facility] [address], [place], [address], 02/09/2025 15:14:45 02/10/20 25 02/09/2025 urina lysis , dipst ick Ketone (reference range) trace Not Available [place] [address] [address] [facility] [address], [place], [address], 02/09/2025 15:14:45 02/10/20 25 02/09/2025 urina lysis , dipst ick Bilirubin (reference range) negati ve Not Available [place] [address] [address] [facility] [address], [place], [address], 02/09/2025 15:14:45 02/10/20 25 02/09/2025 urina lysis , dipst ick Glucose (reference range) negati ve Not Available [place] [address] [address] [facility] [address], [place], [address], 02/09/2025 15:14:45 02/10/20 25 02/09/2025 urina lysis , dipst ick Color (reference range: yellow-brown ) Yellow Not Available [facility] [address] [facility] [address], [place], [address], 02/09/2025 15:14:45 02/27/20 25 02/25/2025 CT ABD pel w/w/O [facility] [address] [place] [address] Phone: Fax: Name: CONSTANTINO PUGH Exam Date: 02/26/20 : 996 Age 29 years Gender : M Access ion: [id number] Physic yesenia: GUY THAKKAR [place] ty: [place] Fac[place] HSV: Outpat ient Exam: CT ABD PEL W/W/O EXAMIN ATION: CT ABDOME N AND PELVIS UROGRA M WITHOU T AND WITH CONTRA ST CLINIC AL INDICA TION: Male, 29 years old. gross hematu khalif TECHNI QUE: CT abdome n and pelvis was perfor med, before and after the admini strati on of IV contra st, as per depart ment protoc ol. Axial, sagitt al and jose l recons tructi ons were obtain ed. One or more of the follow ing dose reduct ion techni ques were used: Automa sadie exposu re contro l, adjust ment of the mA and/or kV accord ing to patien t size, and/or iterat pollo recons tructi on. Unless otherw ise specif ied, incide ntal findin gs do not requir e dedica sadie imagin g follow -up. [id number] . IV CONTRA ST: 100 mL of Isovue [address]: Not admini stered . COMPAR NATALEE: CT Novemb er 2023 FINDIN GS: LOWER CHEST: Unrema rkable . Urinar y tract: No demons trable urinar y tract obstru ction nor calcif ied stones . Tiny benign appear ing right renal cyst which does not requir e ongoin g follow -up survei llance and. Unrema rkable left kidney . Unrema rkable underd istend ed urinar y bladde r. Other abdomi nal organs : The liver is fatty infilt rated. Unrema rkable gallbl adder, pancre as, spleen and adrena l glands . GASTRO INTEST INAL TRACT: Prior append ectomy . No demons trable lesion s of bowel. Perito neum and retrop eriton eum: Nothin g active . Pelvis : Unrema rkable . Bones and soft tissue s: Very small fat-co ntaini ng left inguin al hernia . Otherw ise unrema rkable . IMPRES BRODIE: No demons trable source of hematu khalif. Fatty liver. Very small fat-co ntaini ng left inguin al hernia . Electr onical ly signed by: Charlie recinos MD 2024 05:00 AM EDT RP Workst ation: [id number] Dictat ed By: CHARLIE WILKES Transc ribed By: Transc ribed On: 02/27/20 5:00 AM Electr onical ly signed by: CHARLIE WILKES 02/27/20 Thank you for referr ing CONSTANTINO PUGH to [facility] Hospit pr. Legall y authen ticate d by PING CHAWLA 02-26 05:00: 50 CC'ed Logic: Orderi ng Provid er: BIJAN TOVAR Attend ing Provid er: BIJAN TOVAR Referr ing Provid er: BIJAN Nguyen ing Provid er: BIJAN TOVAR [email or web address] [facility] [address] [place] [address], [place], [address], 02/26/2025 07:36:05 03/11/20 25 03/11/2025 renal ,bila teral [facility] Hospit al [address] [place] [address] Phone: Fax: Name: CONSTANTINO PUGH Exam Date: 025 : 996 Age 29 years Gender : M Access ion: [id number] Physic yesenia: GUY THAKKAR [facility] Facili ty HSV: Outpat ient Exam: RENAL, BILATE RAL US Proced ure: US KIDNEY BILATE RAL Exam Date: 025 3:37 PM CDT Indica tion: gross hematu khalif Compar natalee: Correl ation with CT abdome n pelvis from 2024. Techni que: Bourgeois scale sonogr aphic evalua tion of the kidney s was perfor med with color Dopple r or Duplex imagin g if needed . FINDIN GS: The right kidney measur es 12.8 cm in length and demons trates normal cortic al echoge nicity . No hydron ephros is or shadow ing renal calcul i demons trated . The left kidney measur es 12.6 cm in length and demons trates normal cortic al echoge nicity . No hydron ephros is or shadow ing renal calcul i demons trated . IMPRES BRODIE: Normal sonogr aphic appear ance of the kidney s. No hydron ephros is. Electr onical ly signed by: Kim squires MD 2024 08:32 PM EDT RP Workst ation: [id number] Dictat ed By: Kim Marroquin Transc ribed By: Transc ribed On: 025 8:32 PM Electr onical ly signed by: Kim Marroquin Thank you for referr ing CONSTANTINO PUGH to [facility] Hospit al. Legall y authen ticate d by MAGED PORTILLO 03-11 20:32: 08 CC'ed Logic: Orderi ng Provid er: BIJAN TOVAR Attend ing Provid er: BIJAN TOVAR Referr ing Provid er: BIJAN TOVAR Admitt ing Provid er: BIJAN TOVAR [email or web address] [facility] [address] [facility], [place], [address], 03/15/2025 13:11:13 Result Notes None recorded. Problems Name Problem SNOMED Code Status Onset Date Resolution Date Notes Provider Name and Address Organization Details Recorded Time Mack hematuria 373516231 Active 025 GUY THAKKAR MD [address], [place], [address] , [facility] & [place] 15:27:30 Poor stream of urine 048209945 Active 025 GUY THAKKAR MD [address], [place], [address] , [facility] & [place] 15:27:37 Problem Notes None recorded. Procedures Surgical History Date Name Laterality Status Provider Name and Address Organization Details Recorded Time 02/25/2025 Cystoscopy -Male completed GUY THAKKAR MD [address], [place], [address], [facility] & [place] 02/25/2025 13:51:57 Imaging Results None recorded. Procedure Notes None recorded. Medical Equipment None Reported. Allergies Allergen ID Allergen Name Allergen Category Reaction Reaction Severity Criticality Documentation Date Start Date Code Code System Note Provider Name and Address Organization Details Recorded Time 149395 Product containin g penicilli n (product) medicatio n hives mild Not available 01/18/2025 [id number] [id number] SNOMED Mitali Fernandes [facility] & [place] 16:08:34 Medications Name Sig Start Date Stop Date Status Note LastModified by Organization Details LastModified Time amoxicillin 500 mg capsule TAKE 1 CAPSULE BY MOUTH THREE TIMES DAILY 01/18 completed Not Available Not Available Not Available methocarbam ol 500 mg tablet TAKE TWO TABLETS BY MOUTH THREE TIMES DAILY try one tablet AT a time THEN increase TO two TABLETS if needed MAY CAUSE DROWSINES S active Not Available Not Available No t Available bupropion HCl SR 150 mg tablet,12 hr sustained-r elease TAKE ONE TABLET BY MOUTH TWICE DAILY active Not Available Not Available No t Available doxycycline hyclate 100 mg capsule TAKE ONE CAPSULE BY MOUTH TWICE DAILY -- FINISH ALL MEDICINE -- active Not Available Not Available No t Available clindamycin HCl 300 mg capsule TAKE 1 CAPSULE BY MOUTH EVERY 6 HOURS active Not Available Not Available No t Available triazolam 0.25 mg tablet TAKE ONE TABLET BY MOUTH EVERY DAY AT BEDTIME, THEN TAKE ONE TABLET BY MOUTH 1 HOUR PRIOR TO DENTAL APPOINTME NT, THEN BRING THE THIRD TABLET WITH YOU. DO NOT DRIVE MAY CAUSE DROWSINES S active Not Available Not Available No t Available azithromyci n 250 mg tablet TAKE 2 TABLETS BY MOUTH ON DAY 1, AND THEN TAKE 1 TABLET BY MOUTH ONCE A DAY ON DAY 2 THROUGH DAY 5 01/18 completed Not Available Not Available Not Available ibuprofen 800 mg tablet TAKE 1 TABLET BY MOUTH THREE TIMES DAILY WITH FOOD active Not Available Not Available No t Available Lidocaine Viscous 2 % mucosal solution APPLY 2 ML TO AFFECTED AREA EVERY 2 HOURS NEEDED FOR PAIN 01/18 completed Not Available Not Available Not Available clarithromy nu 500 mg tablet TAKE 1 TABLET BY MOUTH TWICE DAILY FOR 14 DAYS active Not Available Not Available No t Available hydrocodone 5 mg-acetamin ophen 325 mg tablet TAKE 1 TABLET BY MOUTH EVERY 6 HOURS NEEDED FOR PAIN 01/18 completed Not Available Not Available Not Available meloxicam 15 mg tablet TAKE 1 TABLET BY MOUTH ONCE DAILY 01/18 completed Not Available Not Available Not Available prednisone 20 mg tablet TAKE 1 TABLET BY MOUTH TWICE DAILY ADMINISTE R WITH FOOD OR MILK 01/18 completed Not Available Not Available Not Available sumatriptan 50 mg tablet TAKE 1 TABLET BY MOUTH AT ONSET OF MIGRAINE. MAY REPEAT ONCE AFTER 2 HOURS IF NEEDED DO NOT EXCEED 4 DOSES PER 24 HOURS active Not Available Not Available No t Available metronidazo le 500 mg tablet TAKE 1 TABLET BY MOUTH THREE TIMES DAILY 01/18 completed Not Available Not Available Not Available amlodipine 5 mg tablet TAKE ONE TABLET BY MOUTH EVERY DAY active Not Available Not Available No t Available sulfamethox azole 800 mg-trimetho prim 160 mg tablet TAKE 1 TABLET BY MOUTH EVERY 12 HOURS FOR 7 DAYS active Not Available Not Available No t Available ondansetron 8 mg disintegrat ing tablet DISSOLVE 1 TABLET IN MOUTH EVERY 8 HOURS FOR 5 DAYS NEEDED FOR NAUSEA AND VOMITING 01/18 completed Not Available Not Available Not Available dexamethaso ne 0.5 mg/5 mL oral solution RINSE WITH 10MLS AND HOLD FOR 2 MINUTES THEN SPIT 4 TIMES DAILY 01/18 completed Not Available Not Available Not Available oxycodone-a cetaminophe n 5 mg-325 mg tablet TAKE 1 TABLET BY MOUTH EVERY 4 HOURS NEEDED FOR PAIN active Not Available Not Available No t Available methocarbam ol 750 mg tablet TAKE ONE TABLET BY MOUTH EVERY 6 HOURS NEEDED FOR MUSCLE SPASMS MAY CAUSE DROWSINES S active Not Available Not Available No t Available tamsulosin 0.4 mg capsule TAKE ONE CAPSULE BY MOUTH EVERY DAY active Not Available Not Available No t Available amlodipine 10 mg tablet Take 1 tablet every day by oral route. active Not Available Not Available No t Available benzonatate 100 mg capsule TAKE 1 CAPSULE BY MOUTH THREE TIMES DAILY 01/18 completed Not Available Not Available Not Available erythromyci n 5 mg/gram (0.5 %) eye ointment INSTILL 1/2 INCH OF OINTMENT INTO THE EYE(S) 4 TIMES DAILY FOR 7 DAYS 01/18 completed Not Available Not Available Not Available oseltamivir 75 mg capsule TAKE 1 CAPSULE BY MOUTH TWICE DAILY FOR 5 DAYS 01/18 completed Not Available Not Available Not Available neomycin-po lymyxin-dex ameth 3.5 mg/mL-10,00 0 unit/mL-0.1 % eye drops INSTILL ONE DROP IN EACH EYE FOUR TIMES DAILY FOR 4-7 DAYS active Not Available Not Available No t Available omeprazole 20 mg capsule,del ayed release TAKE ONE CAPSULE BY MOUTH EVERY DAY active Not Available Not Available No t Available acyclovir 200 mg capsule TAKE 1 CAPSULE BY MOUTH EVERY 3 HOURS DAILY active Not Available Not Available No t Available ibuprofen 600 mg tablet TAKE 1 TABLET BY MOUTH EVERY 6 HOURS NEEDED FOR PAIN active Not Available Not Available No t Available levofloxaci n 500 mg tablet TAKE 1 TABLET BY MOUTH ONCE DAILY 01/18 completed Not Available Not Available Not Available bromphenira mine-pseudo ephedrine-D M 2 mg-30 mg-10 mg/5 mL oral syrup TAKE 5 ML BY MOUTH EVERY 6 HOURS NEEDED FOR COLD SYMPTOMS 01/18 completed Not Available Not Available Not Available ondansetron 4 mg disintegrat ing tablet DISSOLVE 1 TABLET IN MOUTH THREE TIMES DAILY NEEDED FOR 3 DAYS FOR NAUSEA 01/18 completed Not Available Not Available Not Available doxycycline hyclate 100 mg tablet Take 1 tablet twice a day by oral route for 30 days. 2024 active Not Available Not Available Not Avai lable bupropion HCl SR 200 mg tablet,12 hr sustained-r elease TAKE ONE TABLET BY MOUTH TWICE DAILY active Not Available Not Available No t Available cyclobenzap rine 5 mg tablet TAKE 1 TO 2 TABLET(S) BY MOUTH THREE TIMES DAILY NEEDED FOR MUSCLE SPASMS (START WITH 1 TABLET, MAY INCREASE TO 2 TABLETS IF 1 IS NOT EFFECTIVE ) MAY CAUSE DROWSINES S active Not Available Not Available No t Available chlorhexidi ne gluconate 0.12 % mouthwash SWISH 15MLS IN MOUTH FOR 2 MINUTES THEN SPIT OUT. USE TWICE DAILY AFTER BRUSHING TEETH. 01/18 completed Not Available Not Available Not Available testosteron e active Not Available Not Available Not Available Tylenol active Not Available Not Avail able Not Available peg 3350-electr olytes 236 gram-22.74 gram-6.74 gram-5.86 gram solution MIX DIRECTED AND DRINK 240 ML (8 OUNCES) BY MOUTH EVERY 10 MINUTES UNTIL FECAL EFFLUENT IS CLEAR OR OTHERWISE DIRECTED DO NOT EXCEED TOTAL VOLUME OF 4000 ML active Not Available Not Available No t Available Gavilyte-C 240 gram-22.72 gram-6.72 gram-5.84 gram oral solution DRINK 3 TIMES DAILY DIRECTED 01/18 completed Not Available Not Available Not Available testosteron e 20.25 mg/1.25 gram per pump act.(1.62 %) transdermal gel APPLY 3 PUMPS TOPICALLY DAILY DIRECTED active Not Available Not Available No t Available Vitals Date Recorded Body height Body temperature Body mass index (BMI) Body weight Systolic And Diastolic Provider Name and Address Organization Details Last Updated DateTime 10/23/2022 187.96 cm 97.9 [degF] 37.1 kg/m2 569334. 91 g 136/70 mm[Hg] Mitali Fernandes [facility] & [place] 3 14:38:12 Date Recorded Body height Body mass index (BMI) Body weight Oxygen saturation Oxygen saturation in Arterial blood by Pulse oximetry Heart rate Systolic And Diastolic Provider Name and Address Organization Details Last Updated DateTime 5 187.96 cm 36.5 kg/m2 755762. 23 g 98 % 98 % 86 /min 122/76 mm[Hg] Yuli Driver [facility] [place] 5 15:10:40 Social History None recorded. Functional Status Question Answer Note LastModified by Organizat ion Details LastModified Time Do you use any illicit or recreational drugs? No Information not available 10/23/2022 What is your level of alcohol consumption? None Information not available 10/23/2022 Mental Status None recorded. Family History Relationship Description Onset Age of this Age Resolved Age Notes LastModified by Organization Details LastModified Time Father Chronic obstructive pulmonary disease pt. added direct ly (10/20) API-13 Not available 10/20/2022 12:34:40 Father Heart disease pt. added direct ly (10/20) API-13 Not available 10/20/2022 12:34:58 Father Kidney disease pt. added direct ly (10/20) [email or web address]-13 Not available 10/20/2022 12:35:07 Father Mental health problem pt. added direct ly (10/20) [email or web address]-13 Not available 10/20/2022 12:35:18 Mother Headache pt. added direct ly (10/20) [email or web address]-13 Not available 10/20/2022 12:34:48 Mother Heart disease pt. added direct ly (10/20) API-13 Not available 10/20/2022 12:34:58 Medical History No medical history recorded. Past Encounters Encounter ID Performer Location Encounter Start Date Encounter Closed Date Diagnosis/Indication Diagnosis SNOMED-CT Code Diagnosis ICD10 Code Diagnosis IMO Codes Diagnosis Note [id number] Tanvi Maharaj NP, S [facility] [address] [facility] [address] [place] [address] 10/23/2022 14:12:10 10/23/2022 15:02:15 Dysuria 12714555 R30.0 UA negative for infectionS chedule CT scan of abd/pelvis without contrastRT C in 4 weeks for f/u of CT scan results Microscopic hematuria 19 6570884 R31.29 Left lower quadrant pain 874318490 R10.32 Nocturia 606974113 R35.1 [id number] UGY THAKKAR MD [facility] Urology-[address] [place] [address] 02/09/2025 14:57:00 02/09/2025 15:34:42 Mack hematuria 560155330 R31.0 252922 Poor stream of urine 162 122152 R39.12 [id number] GUY THAKKAR MD [facility] Urology-[address] [place] [address] 02/25/2025 13:15:40 02/25/2025 13:55:14 Mack hematuria 810393119 R31.0 [id number] GUY THAKKAR MD [facility] Urology-1 [address] [place] [address] 03/18/2025 15:22:31 03/18/2025 17:01:46 Mack hematuria 398997061 R31.0 [id number] Health Concerns Section Related Observation LastModified by Organization Detai ls LastModified Time None Recorded Concern Status LastModified by Organization Details LastModified Time None Recorded Advance Directives Directive None Recorded Payers Insurance Date Sequence Insurance Name Policy Number Policy Duke Covered Member ID Duke Member ID Guarantor Name 03/25/2025 1 [facility] (MEDICAID HMO) Constantino Quesenberry [id number] Constantino Quesenberry 03/09/2025 1 [facility] (MEDICAID HMO) Constantino Quesenberry [id number] Constantino Quesenberry Notes Date Note Type Note Provider Name and Address Organization Details Recorded Time 10/23/2022 text/html 27 yowm presents to clinic for evaluation of dysuria. Pt reports he has been experiencing dysuria for the past 2-3 months. States it has gotten some better. Reports been left lower abdominal. Reports the pain is intermittent and sharp times. He reports urinary stream is occasionally weak. Nocturia times 1-2. Bowels move regularly. He denies any gross hematuria. Denies any history kidney stones. Reports he had an infection last year and states his PCP reported it had swelled his kidney and liver. Tanvi Maharaj, GOLDIE, [address] , [place], [address], [facility] [place] & [place] 10/23/2022 14:57:23 02/09/2025 text/html 02/09/25 [id number]-male referred to my office for hematuria, dysuria, and bladder outlet obstruction. 12/03/24 UA: Blood- moderateConstantino Schmitz is a 29-year-old male who presents for a new patient visit. He has been experiencing erectile dysfunction and has been under the care of Dr. Li, who prescribed testosterone therapy approximately one year ago. Despite the treatment, he continues to have issues with blood in his urine and proteinuria. He has noticed visible blood in his urine for several months and reports associated back pain. There is no pain with urination, but he has experienced difficulty urinating and frequent urination, especially upon waking, causing significant bladder discomfort. He has been for twelve years and has a family history of kidney disease, with his uncle having stage IV kidney disease. He has also taken tamsulosin in the past, which sometimes helps with his urinary stream. There is no history of groin injuries or catheterization. His primary doctor, Dr. Rizvi, has noted similar urinary issues in his family members, suggesting a possible hereditary component. Not Available [facility] 02/09/2025 15:50:50 02/25/2025 text/html 02/25/25 Patient returns to my office for cystoscopy. Constantino Schmitz is a 29-year-old male who presents for a procedure cystoscopy. There is visible blood in the urine, which is suspected to originate from the prostate. Constantino has a history of smoking, which is relevant to the evaluation. He also reports ongoing back pain. Pressure flow studies were previously performed and demonstrated good flow with no elevated pressure. 02/09/25299593-fxkl-sen- male referred to my office for hematuria, dysuria, and bladder outlet obstruction.Constantino Schmitz is a 29-year-old male who presents for a new patient visit. He has been experiencing erectile dysfunction and has been under the care of Dr. Li, who prescribed testosterone therapy approximately one year ago. Despite the treatment, he continues to have issues with blood in his urine and proteinuria. He has noticed visible blood in his urine for several months and reports associated back pain. There is no pain with urination, but he has experienced difficulty urinating and frequent urination, especially upon waking, causing significant bladder discomfort. He has been for twelve years and has a family history of kidney disease, with his uncle having stage IV kidney disease. He has also taken tamsulosin in the past, which sometimes helps with his urinary stream. There is no history of groin injuries or catheterization. His primary doctor, Dr. Rizvi, has noted similar urinary issues in his family members, suggesting a possible hereditary component. 02/22/25 Urocuff: Pcuffint 122.0cmH2O, Qmax 21.9ml/s002/09/25 Cr 1.4, GFR 70,12/03/24 UA: Blood- moderate GUY THAKKAR MD [address], [place], [address], [facility] [place] & [place] 02/26/2025 09:19:02 03/18/2025 text/html 03/18/25 Tele visit to discuss CT and US results. Constantino Schmitz is a 29-year-old male who presents for a telephonic visit regarding mack hematuria. Blood in the urine has been noted intermittently. The patient has no associated symptoms such as pain or discomfort. There is no mention of aggravating or alleviating factors. 02/25/25Patient returns to my office for cystoscopy.Constantino Schmitz is a 29-year-old male who presents for a procedure cystoscopy. There is visible blood in the urine, which is suspected to originate from the prostate. Constantino has a history of smoking, which is relevant to the evaluation. He also reports ongoing back pain. Pressure flow studies were previously performed and demonstrated good flow with no elevated pressure. 02/09/25 [id number]-male referred to my office for hematuria, dysuria, and bladder outlet obstruction.Constantino Schmitz is a 29-year-old male who presents for a new patient visit. He has been experiencing erectile dysfunction and has been under the care of Dr. Li, who prescribed testosterone therapy approximately one year ago. Despite the treatment, he continues to have issues with blood in his urine and proteinuria. He has noticed visible blood in his urine for several months and reports associated back pain. There is no pain with urination, but he has experienced difficulty urinating and frequent urination, especially upon waking, causing significant bladder discomfort. He has been for twelve years and has a family history of kidney disease, with his uncle having stage IV kidney disease. He has also taken tamsulosin in the past, which sometimes helps with his urinary stream. There is no history of groin injuries or catheterization. His primary doctor, Dr. Rizvi, has noted similar urinary issues in his family members, suggesting a possible hereditary component. 03/11/25 US renal ([facility]): The right kidney measures 12.8 cm in length and demonstrates normal cortical echogenicity. No hydronephrosis or shadowing renal calculi demonstrated. The left kidney measures 12.6 cm in length and demonstrates normal cortical echogenicity. No hydronephrosis or shadowing renal calculi demonstrated. 02/25/25 CT abd/pel w/w/o ([facility]): Urinary tract: No demonstrable urinary tract obstruction nor calcified stones. Tiny benign appearing right renal cyst which does not require ongoing follow-up surveillance and. Unremarkable left kidney. Unremarkableunderdis tended urinary bladder. Pelvis: Unremarkable 02/23/25 Urocuff: Pcuffint 122.0cm H2O, Qmax 21.9ml/s002/09/25 Cr 1.4, GFR 70,12/03/24 UA: Blood- moderate GUY THAKKAR MD [address] [facility], [place], [address], [facility] - [place] & [place] 03/25/2025 07:43:14
--- NOTE | 2025-07-08 21:45 | ED_ITS ---
Discharge Plan Disposition Patient Disposition: Home, Self-Care Condition: Good Prescriptions Prescriptions: New doxycycline hyclate 100 mg capsule 200 mg PO DAILY 1 Days Qty: 2 0RF No Action tamsulosin [Flomax] 0.4 mg capsule 0.4 mg PO DAILY Qty: 30 3RF testosterone 20.25 mg/1.25 gram (1.62 %) gel in metered-dose pump 5 pump topical QAM sumatriptan succinate 50 mg tablet 50 mg PO Q2H PRN (Reason: migraine headache) Qty: 10 0RF Rx Instructions: do not exceed 4 doses per 24 hrs loratadine [Allergy Relief (loratadine)] 10 mg tablet 10 mg PO DAILY PRN (Reason: allergy symptoms) Qty: 30 2RF bupropion HCl 200 mg tablet sustained-release 12 hr 200 mg PO BID Qty: 60 2RF cyclobenzaprine 5 mg tablet See Rx Instructions .ROUTE .COMPLEX Qty: 30 1RF Dose Instruction: TAKE 1 TO 2 TABLET(S) BY MOUTH THREE TIMES DAILY NEEDED FOR MUSCLE SPASMS (START WITH 1 TABLET, MAY INCREASE TO 2 TABLETS IF 1 IS NOT EFFECTIVE) MAY CAUSE DROWSINESS Rx Instructions: TAKE 1 TO 2 TABLET(S) BY MOUTH THREE TIMES DAILY NEEDED FOR MUSCLE SPASMS (START WITH 1 TABLET, MAY INCREASE TO 2 TABLETS IF 1 IS NOT EFFECTIVE) MAY CAUSE DROWSINESS amlodipine 5 mg tablet See Rx Instructions .ROUTE .COMPLEX Qty: 30 2RF Dose Instruction: TAKE ONE TABLET BY MOUTH EVERY DAY Rx Instructions: TAKE ONE TABLET BY MOUTH EVERY DAY erythromycin 5 mg/gram (0.5 %) ointment 1 applic ophthalmic (eye) QID Qty: 50 0RF Referrals Follow up/Referrals: Tao Rizvi DO [Primary Care Provider, Family Practice] - See instructions Activity Restrictions/Add. Instructions Additional Instructions/Restrictions: Take the single dose of doxycycline given your tick bite. Return to the emergency department for any signs of an infection including significant spreading redness drainage or if you have any other acute concerns. Clinical Impressions Clinical Impression: Tick bite Instructions Patient Instructions: DI for Skin Abscess Print Language Print Language: Albanian Discharge ED Provider: Desirae Beatty Adult HPI General Chief complaint: Skin/Abscess/Foreign Body Stated complaint: tick stuck under right arm Time Seen by Provider: 07/08/25 21:45 Mode of Arrival: Ambulatory Source of Information: Patient Description of Symptoms (Recalled from ER Triage Doc. by RN): patient presents for a tick embedded in his right axilla. patient has made attempts to removed but it is really deep History of Present Illness HPI narrative: Patient is a 29-year-old male with no significant past medical history who presented to the emergency department with a tick stuck in his right pectoral skin. Patient states that he is unsure how long it has been there but states that it could have been 3 to 4 days. Patient states that he has not had any associated pain has been no skin changes. Patient denies any medical problems, does not take any daily medications. Patient has not had no other associated symptoms. Related Data Home Medications ?Medication ?Instructions ?Recorded ?Confirmed testosterone 5 pump topical QAM 12/03/24 04/23/25 Previous Rx's ?Medication ?Instructions ?Recorded tamsulosin 0.4 mg capsule (Flomax) 0.4 mg PO DAILY #30 caps 11/30/24 sumatriptan succinate 50 mg tablet 50 mg PO Q2H PRN mi graine headache 12/03/24 #10 tabs bupropion HCl 200 mg tablet,12 hr 200 mg PO BID #60 ea 12/08/24 sustained-release cyclobenzaprine 5 mg tablet See Rx Instructions .Route 02/04/25 .COMPLEX #30 tabs amlodipine 5 mg tablet See Rx Instructions .Route 0 02/23/25 .COMPLEX #30 tabs loratadine 10 mg tablet (Allergy 10 mg PO DAILY PRN al lergy 04/23/25 Relief (loratadine)) symptoms #30 tabs erythromycin 5 mg/gram (0.5 %) eye 1 applic ophthalmic (eye) QID #50 06/16/25 ointment grams doxycycline hyclate 100 mg capsule 200 mg (2 x 100 mg) PO DAILY 1 day 07/09/25 #2 caps Allergies Allergy/AdvReac Type Severity Reaction Status Date / Time Penicillins (PENICILLINS) Allergy Mild Hives Verified 04/23/25 11:48 [facility] Disclaimer: The information contained in this section may have been updated after the patient was seen, as this information can be updated by other users. Medical History Hypogonadism Screening for hypertension Acid reflux Testosterone deficiency in male Os trigonum syndrome Injury of right heel Hepatosplenomegaly Surgical History History of tooth extraction History of surgical procedure on mouth History of appendectomy Social History Smoking Status: Never smoker alcohol intake: never substance use type: denies use current occupational status: employed Travel in the last 8 weeks?: None Have you lived/traveled outside US in past 30 days?: No Contact w/someone who lives/traveled outside US past 30 days?: No Exposure to someone with infectious disease in past 14 days?: No Do you have a fever (greater than 100.4 F or 38 C)?: No Have you tested positive for COVID-19?: No Exposed to someone with COVID-19 in past 14 days?: No Do you have a sore throat?: No Do you have a cough?: No Do you have any weakness?: No Do you have any diarrhea?: No Are you experiencing any unusual bleeding?: No Do you have any muscle aches/pain?: No Do you have any abdominal pain?: No Are you experiencing loss of taste or smell?: No Other Medical History Have you received the Flu Vaccine for this season: Yes Have you received the Pneumonia Vaccine: No ROS Obtained: Yes All systems reviewed & no additional complaints except as documented and Yes Systems reviewed as appropriate & no additional complaints except as documented Physical Exam General General appearance: alert and in no apparent distress Head Head exam: atraumatic, normocephalic and normal inspection Eye Eye exam: Present normal appearance, PERRL and EOMI; Absent scleral icterus ENT ENT exam: Present normal exam and normal external ear exam Neck Neck exam: Present normal inspection and full ROM Chest Chest inspection: Present normal inspection and symmetric chest wall rise Respiratory Respiratory exam: Present normal lung sounds bilaterally; Absent respiratory distress or wheezes Cardiovascular Cardiovascular exam: Present regular rate, normal rhythm and normal heart sounds Abdominal Exam Abdominal exam: Present soft and distention; Absent tenderness, guarding or rebound Extremities Exam Extremities exam: Present normal inspection and full ROM Back Exam Back exam: Present normal inspection and full ROM Neurological Exam Neurological exam: Present alert and oriented X3 Psychiatric Psychiatric exam: Present normal affect and normal mood Skin Skin exam: Present warm, dry and other (right pectoral muscle with tick in the skin, no associated skin changes) Medical Decision Making Medical Records Screening: Per USPSTF and CDC recommendations, given the prevalence of disease in our region, it is our hospital?s policy to screen for HIV and viral Hepatitis for all patients aged 18 and over and those with ongoing risk factors. Bennie Inquiry Pt receiving controlled substance: No Vital Signs: 07/08/25 21:32 07/09/25 00:15 Temperature 98.4 F 98.9 F Temperature Source Oral Pulse Rate 90 Pulse Rate [Right Radial] 90 Respiratory Rate 18 16 Blood Pressure 168/88 H Blood Pressure [Right Arm] 172/104 H Blood Pressure Mean [Right Arm] 126 Blood Pressure Source [Right Arm] Automatic Cuff Blood Pressure Position Sitting Blood Pressure Position [Right Arm] Sitting 02 Sat by Pulse Oximetry 98 Oxygen Delivery Method Room Air Room Air Lab Data Lab results reviewed: Yes I reviewed the patient's lab results. Orders (Tests/Meds): ED MEDICATIONS Discontinued Medications Generic Name Dose Route Start Last Admin Trade Name Freq PRN Reason Stop Dose Admin Lidocaine HCl 10 ml 07/08/25 22:02 Lidocaine 1% 10ml Mdv SUBCUT 07/08/25 22:03 ONCE ONE Medical Decision Narrative: Patient is a 29-year-old male with no significant past medical history who presented to the emergency department with a tick bite stuck in his right pectoral muscle. On arrival, patient was hemodynamically stable with unremarkable vital signs. Differential includes foreign body, tick rash, embedded tick, laceration, amongst others. Patient's skin was numbed with lidocaine and a small incision was made and tick was removed in entirety. Patient had no associated skin changes therefore I did not feel that patient warranted complete treatment for tick bite. Was given a single dose of doxycycline for prophylaxis. Patient was otherwise discharged home in stable condition with return precautions and wound care instructions. Procedures Foreign Body Removal Time Out Performed: No Site: right Description of foreign body: other (tick) Sedation/Analgesia: none Technique: removal with forceps Confirmed by:: direct visualization Complications: none Post-procedure exam: awake, alert Critical Care Critical Care Time Critical Care Time: No
[2025-07-09 00:15] VITALS: BP 168/88; PULSE 90; RESP 16; TEMP 37.2; O2SAT 100
== END 2025-07-09 00:16 | disposition home or self-care (01) ==
PROVIDERS: Emergency Provider Student in an Organized Health Care Education/Training Program; PCP Internal Medicine
DX: S40.861A Insect bite (nonvenomous) of right upper arm, initial encounter (principal); W57.XXXA Bitten or stung by nonvenomous insect and other nonvenomous arthropods, initial encounter
CPT/HCPCS: 10120; 99282; J2003

== ENCOUNTER 2025-09-10 11:58 | Outpatient (CLI) | payer MEDICAID, SELFPAY ==
[2025-09-10 14:28] LABS: Coronavirus 19, PCR Not Detected (NotDetected); Influenza A, PCR Not Detected (NotDetected); Influenza B, PCR Not Detected (NotDetected)
--- OUTSIDE RECORDS SUMMARY | 2025-09-11 09:52 | XMS_ITS | Clinical Summary ---
Author Organization Healthcare Address [address] [place] [address] Care Team Providers Care Supervisor Air Conditioning Installer Name Role Phone Shellie Richmond Primary Care Provider [phone] Allergies Active Allergy Reactions Criticality Noted Date [...] of 3 - 19+ 3-dose series) 2014 [facility]-EBDPO-30 Vaccine (1 - 20 25-26 season) 2025 [facility]-Influenza Vaccine (#1) 2025 [facility]-Zoster Vaccines (1 of 2) 2045 HPV Vaccines (No Doses Required) Completed [facility]-HIB Vaccines Aged Out No longer e [...] this topic Insurance [employer] Care Teams Supervisor Air Conditioning Installer Relationship Specialty Start Date End Date Shellie Richmond PA [address] [place] [address] PCP - General 02/03/21
== END 2025-09-10 23:59 | disposition home or self-care (01) ==
LOC: LAB.DROPOF 09-11 09:49
PROVIDERS: PCP Internal Medicine; Visit Provider Student in an Organized Health Care Education/Training Program
DX: J06.9 Acute upper respiratory infection, unspecified (principal)
CPT/HCPCS: 87070; 87631